=== PATIENT | male | born 1990 | race Caucasian/White ===

== ENCOUNTER 2016-11-20 09:36 | Emergency (ER) | payer OTHER ==
[~2016-11-20] VITALS: Ht 170.2 cm; Wt 61.0 kg
[~2016-11-20 09:36] MED LIST: IBUP-1427 PO; LORA-741 PO; TRAZ50TA35 PO; VENL37.593 PO
[2016-11-20 09:49] VITALS: TEMP 36.7; Ht 170.2 cm; Wt 61.0 kg
--- NOTE | 2016-11-20 10:02 | EMERGENCY ROOM VISIT NOTE ---
History Report prepared by Shahab: [place] Under the Supervision of: Dr. Hanna Tinsley M.D. First contact with patient: 09:52 Chief Complaint: ILLNESS Stated Complaint: NECK, BACK, SHOULDER, HIP, JAW PAIN History of Present Illness The patient is a 26 year old male who presents to the Emergency Room with complaints of persistent generalized pains that began two months ago. He currently rates his discomfort as a 6/10 in severity. The patient states that two months ago he noticed a rash to his left leg and believes that he may have been bitten by a tick. He states that he noticed itchiness to the area and burning. The patient states that he then began noticing joint pain and muscle aches. He states that it has progressively worsened and migrated throughout his body. The patient reports neck pain, bilateral shoulder pain, back pain, and bilateral hip pain. He states that he has experienced generalized malaise. The patient denies any fever or sore throat. Source of History: patient Onset: two months Position: other (global) Symptom Intensity: 6/10 Quality: other (generalized pain) Timing: other (persistent) Associated Symptoms: + neck pain, + back pain, No fevers, No sorethroat Note: Associated symptoms: joint pain, muscle aches, malaise, bilateral shoulder pain , bilateral hip pain Review of Systems See HPI for pertinent positives & negatives. A total of 10 systems reviewed and were otherwise negative. Past Medical & Surgical Medical Problems: (1) Anxiety State Nos (2) Asthma, Unspecified Surgical Problems: (1) History of left hand surgery Family History Cancer Diabetes mellitus Hypertension Social History Smoking Status: Never Smoker Alcohol Use: none Drug Use: none Marital Status: in relationship Housing Status: lives with significant other Occupation Status: employed Current/Historical Medications Scheduled Doxycycline Monohydrate (Monodox), 100 MG PO BID Trazodone HCl (Trazodone HCl), 100 MG PO HS Venlafaxine Hcl (Venlafaxine Hcl Er), 75 MG PO DAILY Scheduled PRN Lorazepam (Ativan), 0.5 MG PO Q6H PRN for Anxiety/Agitation Allergies Coded Allergies: No Known Allergies (Unverified , 11/20/16) Physical Exam Vital Signs Date Time Temp Pulse Resp B/P (MAP) Pulse Ox O2 Delivery O2 Flow Rate FiO2 11/20/16 13:09 62 16 116/74 97 11/20/16 12:08 66 16 119/77 98 Room Air 11/20/16 09:49 36.7 74 16 138/79 97 Room Air Physical Exam Vital signs reviewed. General: Well-appearing male, in no significant distress. HEENT: No scleral icterus, PERRLA, neck supple. Atraumatic. Cardiovascular: Regular rate and rhythm, no extra sounds. Pulmonary: Clear to auscultation bilaterally, normal work of breathing. Abdomen: Soft, nontender, nondistended, positive bowel sounds. Musculoskeletal: Atraumatic, no peripheral edema. Neurologic: Patient awake alert and oriented x 3, full strength in all 4 extremities. Cranial nerves 2 through 12 grossly intact. Skin: Warm, dry, no rash Medical Decision & Procedures Laboratory Results 11/20/16 10:00 Red Blood Count 4.23, Mean Corpuscular Volume 90.5, Mean Corpuscular Hemoglobin 30.0, Mean Corpuscular Hemoglobin Concent 33.2, Mean Platelet Volume 9.4, Neutrophils (%) (Auto) 74.5, Lymphocytes (%) (Auto) 16.2, Monocytes (%) (Auto) 7.2, Eosinophils (%) (Auto) 1.5, Basophils (%) (Auto) 0.5, Neutrophils # (Auto) 6.14, Lymphocytes # (Auto) 1.33, Monocytes # (Auto) 0.59, Eosinophils # (Auto) 0.12, Basophils # (Auto) 0.04 11/20/16 10:00 Test 11/20/16 10:00 White Blood Count 8.23 K/uL (4.8-10.8) Red Blood Count 4.23 M/uL (4.7-6.1) Hemoglobin 12.7 g/dL (14.0-18.0) Hematocrit 38.3 % (42-52) Mean Corpuscular Volume 90.5 fL (80-100) Mean Corpuscular Hemoglobin 30.0 pg (25-34) Mean Corpuscular Hemoglobin Concent 33.2 g/dl (32-36) Platelet Count 234 K/uL (130-400) Mean Platelet Volume 9.4 fL (7.4-10.4) Neutrophils (%) (Auto) 74.5 % Lymphocytes (%) (Auto) 16.2 % Monocytes (%) (Auto) 7.2 % Eosinophils (%) (Auto) 1.5 % Basophils (%) (Auto) 0.5 % Neutrophils # (Auto) 6.14 K/uL (1.4-6.5) Lymphocytes # (Auto) 1.33 K/uL (1.2-3.4) Monocytes # (Auto) 0.59 K/uL (0.11-0.59) Eosinophils # (Auto) 0.12 K/uL (0-0.5) Basophils # (Auto) 0.04 K/uL (0-0.2) RDW Standard Deviation 43.4 fL (36.4-46.3) RDW Coefficient of Variation 13.1 % (11.5-14.5) Immature Granulocyte % (Auto) 0.1 % Immature Granulocyte # (Auto) 0.01 K/uL (0.00-0.02) Anion Gap 5.0 mmol/L (3-11) Est Creatinine Clear Calc Drug Dose 111.3 ml/min Estimated GFR () 137.7 Estimated GFR (Non- 118.8 BUN/Creatinine Ratio 10.3 (10-20) Calcium Level 8.7 mg/dl (8.5-10.1) Total Bilirubin 0.5 mg/dl (0.2-1) Direct Bilirubin mg/dl (0-0.2) Aspartate Amino Transf (AST/SGOT) 18 U/L (15-37) Alanine Aminotransferase (ALT/SGPT) 24 U/L (12-78) Alkaline Phosphatase 121 U/L (45-117) Total Protein 7.3 gm/dl (6.4-8.2) Albumin 3.3 gm/dl (3.4-5.0) Lyme Disease IgG Antibody POS (NEG) Monoscreen POS (NEG) Laboratory results per my review. Medications Administered Medications (Trade) Dose Ordered Sig/Yazmin Route Start Time Stop Time Status Last Admin Dose Admin Doxycycline Hyclate (Vibramycin Cap) 100 mg ONE ONCE PO 11/20/16 12:45 11/20/16 12:46 DC 11/20/16 13:08 100 MG ECG Indication: other (malaise, joint aches) Rate (beats per minute): 63 Rhythm: normal sinus Findings: no acute ischemic change, no ectopy ED Course 09: Past medical records reviewed. The patient was evaluated in room B11B. A complete history and physical examination was performed. 1245: Ordered Vibramycin Cap 100 mg PO. 1252: The patient and he is doing well. The exam findings were discussed with him and the treatment plan was discussed. He verbalized complete understanding and agreement. He is ready to go home. Medical Decision The patient is a 26 year old male who presents to the ED with complaints of generalized pain. Differentials include mono, lyme disease, tick borne illness , cellulitis, metabolic abnormality, viral illness This patient was evaluated and appeared to be in no significant distress. IV access was obtained and laboratory work was drawn. Physical exam is fairly unrevealing. Patient is concerned about the possibility of a tick bite several months ago. Lyme serology is positive IgM and IgG. Monospot is also positive. Patient will be placed on doxycycline 100 mg twice daily for 3 weeks. Patient was encouraged to establish care with a primary care physician and return to the emergency department for worsening of symptoms or any medical concerns. Medication Reconcilliation Current Medication List: was personally reviewed by me Blood Pressure Screening Patient's blood pressure: Normal blood pressure Blood pressure disposition: Did not require urgent referral Impression Primary Impression: Positive Lyme disease serology Scribe Attestation The scribe's documentation has been prepared under my direction and personally reviewed by me in its entirety. I confirm that the note above accurately reflects all work, treatment, procedures, and medical decision making performed by me. Departure Information Dispostion Home / Self-Care Prescriptions Doxycycline Monohydrate (Monodox) 100 Mg Cap 100 MG PO BID for 21 Days, #42 CAP Prov: Hanna Tinsley M.D. 11/20/16 Referrals No Doctor, Assigned (PCP) Forms HOME CARE DOCUMENTATION FORM, IMPORTANT VISIT INFORMATION, WORK / SCHOOL INSTRUCTIONS Patient Instructions My [facility] Additional Instructions Diagnosis: Lyme titer positive. Doxycycline 100 mg twice daily for 3 weeks. Drink plenty of fluids. Tylenol 650 mg every 6 hours as needed for pain. Return to the ED for worsening of symptoms or any medical concerns.
[2016-11-20] MEDS ORDERED: DSY100 PO (10:20)
[2016-11-20] MEDS ORDERED: VENL-273 PO (10:20)
[2016-11-20 10:22] LABS: BASO % 0.5 %; BASO ABS # 0.04 K/uL (0-0.2); COMPLETE YES; EOS % 1.5 %; HEMATOCRIT 38.3 % (42-52); IG% 0.1 %; LYMPH % 16.2 %; LYMPH ABS # 1.33 K/uL (1.2-3.4); MEAN CELL VOLUME 90.5 fL (80-100); MEAN CORPUSCULAR HGB CONC 33.2 g/dl (32-36); MEAN PLATELET VOLUME 9.4 fL (7.4-10.4); MONO % 7.2 %; NEUT % 74.5 %; PLATELET COUNT 234 K/uL (130-400); RED BLOOD COUNT 4.23 M/uL (4.7-6.1); WHITE BLOOD COUNT 8.23 K/uL (4.8-10.8)
[2016-11-20 10:41] LABS: ALT/SGPT 24 U/L (12-78); AST/SGOT 18 U/L (15-37); BLOOD UREA NITROGEN 9 mg/dl (7-18); BUN/CREATININE RATIO 10.3 (10-20); CALCIUM 8.7 mg/dl (8.5-10.1); CARBON DIOXIDE 31 mmol/L (21-32); CHLORIDE 106 mmol/L (98-107); CREATININE 0.86 mg/dl (0.60-1.40); GLUCOSE 124 mg/dl (70-99); POTASSIUM 4.2 mmol/L (3.5-5.1); SODIUM 142 mmol/L (136-145)
[2016-11-20 10:44] LABS: ALKALINE PHOSPHATASE 121 U/L (45-117)
[2016-11-20 11:48] LABS: LYME DISEASE AB IGG POS (NEG); LYME DISEASE AB IGM POS (NEG)
[2016-11-20] MEDS ORDERED: DOXYCYCLINE HYCLATE 100 MG CAP PO ONE (12:45)
[2016-11-20] MEDS ORDERED: DOXY100C76 PO (12:46)
[2016-11-20 13:09] VITALS: BP 116/74; PULSE 62; O2SAT 97
[2016-11-25 08:59] LABS: 18KDIGG BAND REACTIVE (NONREACTIVE); 23KDIGG BAND REACTIVE (NONREACTIVE); 23KDIGM BAND REACTIVE (NONREACTIVE); 28KDIGG BAND REACTIVE (NONREACTIVE); 30KDIGG BAND REACTIVE (NONREACTIVE); 39KDIGG BAND REACTIVE (NONREACTIVE); 39KDIGM BAND REACTIVE (NONREACTIVE); 41KDIGG BAND REACTIVE (NONREACTIVE); 41KDIGM BAND REACTIVE (NONREACTIVE); 45KDIGG BAND REACTIVE (NONREACTIVE); 58KDIGG BAND REACTIVE (NONREACTIVE); 66KDIGG BAND REACTIVE (NONREACTIVE); 93KDIGG BAND REACTIVE (NONREACTIVE)
== END 2016-11-20 13:09 | disposition home or self-care (01) ==
LOC: C.EDB 09:37
DX: A69.20 Lyme disease, unspecified (principal); F41.9 Anxiety disorder, unspecified; J45.909 Unspecified asthma, uncomplicated; Z83.3 Family history of diabetes mellitus; Z82.49 Family history of ischemic heart disease and other diseases of the circulatory system

== ENCOUNTER 2023-02-28 06:59 | Inpatient (IN) ==
--- OUTSIDE RECORDS SUMMARY | 2023-02-28 07:03 | External Medical Summary | Summary of Care ---
Author Name Unknown Organization [facility] Address [address] [place] [address] Phone [phone] Care Team Providers Care Butcher Supervisor Name Role Phone Oksana Liu MD Primary Care Provider [phone] Reason for Visit * Reason Comments Follow Up Depression * - Authorized Specialty Diagnoses / Procedures Referred By Anne t Referred To Contact Referral ID Status Reason Start Date Expiration Date V isits Requested Visits Authorized [id number] Authorized 07/09/2022 07/08/[phone] Encounter Details Date Type Department Care Team Description 12/20/2022 [facility] [address] [place] [address] Sujata Lewis, [facility] [address], [place] [id number] FRANCOIS (generalized anxiety disorder)*; Panic disorder; Major depressive disorder, recurrent episode, in partial remission (HCC) Allergies Active Allergy Reactions Severity Noted Date Comments Amitriptyline Rash Medium 11/12/2018 documented as of this encounter (statuses as of 12/20/2022) Medications Medication Sig Dispensed Refills Start Date End Date Status ARIPiprazole 5 MG Oral Tablet (Abilify) Take 1.5 Tablets by mouth in the morning. 45 Tablet 2 10/03/2022 Active Sertraline HCl 100 MG Oral Tablet (Zoloft) Take 2 Tablets by mouth in the morning. In the morning.. 180 Tablet 1 10/25/2022 Active clonazePAM 0.5 MG Oral Tablet (KlonoPIN) Take 1 Tablet by mouth in the morning and 1 Tablet before bedtime. 60 Tablet 1 10/25/2022 Active Albuterol Sulfate HFA 108 (90 Base) MCG/ACT Inhalation Aerosol SolutionIndications:I ntermittent asthma with reliever use up to twice per week without complication INHALE 2 PUFFS BY MOUTH EVERY 4 HOURS NEEDED FOR WHEEZE 18 g 3 11/24/2022 Active documented as of this encounter (statuses as of 12/20/2022) Active Problems Problem Noted Date Food insecurity 04/19/2021 Overview: Per [facility] Protocol MDD (major depressive disorder), recurre nt episode, mild 05/13/2020 FRANCOIS (generalized anxiety disorder) 09/14 ADHD (attention deficit hyperactivity di sorder), combined type 09/14/2018 Sleep disturbance 04/16/2012 Allergic rhinitis Mild intermittent asthma without complic ation documented as of this encounter (statuses as of 12/20/2022) Resolved Problems Problem Noted Date Resolved Date Bipolar 1 disorder 07/24/2017 09/14/2018 Primary insomnia 01/01/2016 09/14/2018 Dizziness 06/23/2015 03/30/2018 Dizziness 07/09/2012 05/12/2015 Ganglion 07/09/2012 03/30/2018 Panic disorder 04/16/2012 09/14/2018 Anxiety 02/23/2021 documented as of this encounter (statuses as of 12/20/2022) Immunizations Name Administration Dates Next Due DTaP Dipth/Tet/Acell Pertussis (Infanrix), Peds 09/19/1994,01/19/1993,12/21/1992,1992 Haemophilius B (HIB), unspecified 11/16/1992 Hepatitis B, 0-19 yrs 06/18/2002,03/12/2002,12/09 MMR - Measles/Mumps/Rubella Vaccine 09/19/1994,0 11/16/1992 OPV - Polio Virus Vaccine (Oral) 09/19/1994,01/08,11/16/1992 TD, Preservative Free 12/18/2001 Varicella Vaccine (Chicken Pox) 12/18/2001 documented as of this encounter Social History Tobacco Use Types Packs/Day Years Used Date Smoking Tobacco: Never Smokeless Tobacco: Never Alcohol Use Standard Drinks/Week Comments Yes 0 (1 standard drink = 0.6 oz pur e alcohol) rare Food Insecurity Answer Date Recorded Within the past 12 months, y ou worried that your food would run out before you got money to buy more. Sometimes true 2022 Within the past 12 months, t he food you bought just didn't last and you didn't have money to get more. Not asked Sex Assigned at Date Recorded Male 12/15/2022 7:47 AM E DT Job Start Date Occupation Industry Not on file Not on file Not on file documented as of this encounter Progress Notes * Sujata Lewis, BUSINESS PROCESS SPECIALIST - 12/20/2022 4:36 PM EDT Patient location: HOME. I was not in a hospital or clinic location. After connecting through [employer], patient was verified with two unique identifiers. Patient (or authorized legal security systems sales representative) was then informed that this was a Telemedicine visit and being conducted confidentially over secure lines. Methods to assure confidentiality were taken. Patient acknowledged consent and understanding of privacy and security of the Telemedicine visit. The patient agreed to participate. My office door was closed. No one else was in the room with me. I informed the patient that I have reviewed their record in [employer] and presented the opportunity for them to ask any questions regarding the visit today. The patient agreed to participate. Provider reviewed elements of Outpatient Services Description including limits of confidentiality, how to contact the department, risks and benefits of treatment and consent for treatment. Start Time: 4:36pm Stop Time: 5:23pm Total direct time: 47 minutes BEHAVIORAL MEDICINE RETURN VISIT PROGRESS NOTE Psychology, [place] [id number] 12/20/2022 4:36 PM TYPE OF VISIT: Individual DIAGNOSIS: FRANCOIS (generalized anxiety disorder) (Primary) Panic disorder Major depressive disorder, recurrent episode, in partial remission (HCC) REASON FOR SESSION: Individual therapy Session #: 7 with this provider SESSION FOCUS: treatment planning, Developing coping skills NOTES: Therapist met with patient to complete an individual session. Pt shared how he was following up with his psychiatrist to complete disability paperwork. Pt explained how he knows his psychiatrist can't answer some of the questions. "Pt identified feeling like he is against the wall". Pt shared he has court since he can't pay back a loan. Pt explored medication adjustment. PT discussed his anxiety stating "constantly bothering me but it is not as bad as it use to be". Pt shared his experience with panic while being in the car. Pt shared he still has moments "of not knowing what to do".Pt explored his lack of concentration, lack of will power to complete tasks and something as simple as takingthe garbage out or packing the trunk of the car to go camping. Pt was encouraged to discuss a possible medication adjustment with his perscriber at next appt. Pt also explored his support's explaining his mother agreed to put a place in his name so they would only have to pay her and not the bank. Pt shared his situation is significantly contributing to his mental health symptoms. PHQ and FRANCOIS scored reviewed. Pt and BUSINESS PROCESS SPECIALIST explored problem solving techniques. Patient and therapist identified the following strengths that will aid in treatment: Honest, open Patient and therapist identified the following needs: Lack of will power, interest and feeling depressive symptoms. 02/01/[address] MENTAL STATUS AND BEHAVIORAL OBSERVATIONS: Appearance: casually dressed Behavior: cooperative Speech: normal pitch, rate and volume Affect: Congruent with content of conversation Thought Process: within normal limits and goal directed Thought Content: within normal limits Intellectual Function: within normal limits Sensorium: alert and oriented to person, place, time and situation Cognition: grossly intact Insight/Judgment: fair PROGRESS TOWARDS GOALS: Goal: Improved self-management of Improved self-management of symptoms, coping strategies, and insight. Objective Measures: Patient Health Questionnaire 9 & Generalized Anxiety Disorder 7 Over the last 2 weeks or more, how often have you been bothered by any of the following problems? 0-1-2-3 1. Little interest or pleasure in doing things 3 2. Feeling down, depressed, or hopeless 3 3. Trouble falling asleep, staying asleep, or sleeping too much 3 4. Feeling tired or having little energy 3 5. Poor appetite or overeating 1 6. Feeling bad about yourself -- or that you are a failure or have let yourself or others down 3 7. Trouble concentrating on things, such as reading a book or watching television 3 8. Feeling you were moving or speaking so slowly or were very fidgety and moving around in such a way that you or others could have noticed 3 9. Thoughts that you would be better off or of hurting yourself in some way 0 PHQ-9 TOTAL SCORE 22 1. Feeling nervous, anxious, or on edge 3 2. Been unable to control or stop worrying 3 3. Worried too much about different things 3 4. Trouble relaxing 3 5. Been so restless that it is hard to sit still 3 6. Becoming easily annoyed or irritable 3 7. Feeling afraid as if something awful might happen 3 FRANCOIS-7 TOTAL SCORE 21 Patient Health Questionnaire (PHQ-9): 22 (0-4 Min; Mild -5-9; Moderate 10-14; Mod Severe 15-19; Severe 20+) PHQ-9, item 9 = 0 Generalized Anxiety Disorder (FRANCOIS-7): 21 (0-4 Min; Mild -5-9; Moderate 10-14; Severe 15+) Suicide/Homicidal Assessment Validated Screening and Assessment Measures PHQ-9, item 9: NEGATIVE C-SSRS administered: Yes, see rooming tool Miller Suicide Severity Rating Scale Results 12/20/2022 16:36 [place] SUICIDE SEVERITY RATING SCALE (C-SSRS) Have you wished you were or wished you could go to sleep and not wake up? (In the Past Month or Since Last Visit) No Have you had any actual thoughts of killing yourself? (In the Past Month or Since Last Visit) No Have you been thinking about how you might do this? (In the Past Month or Since Last Visit) No Have you had thoughts and had some intention of acting on them? (In the Past Month or Since Last Visit) No Have you started to work out or worked out the details of how to kill yourself? Do you intend to carry out this plan? (In the Past Month or Since Last Visit) No Have you ever done anything, started to do anything, or prepared to do anything to end your life? (Lifetime) No Was this within the past 3 months? No Level of Risk No Risk Identified - No change in risk from last session (see note dated 12/06/22 for further details) Safety Plan: Crisis Planning: What I can do if I ever experience a crisis (much worse symptoms, severe distress or thoughts of self-harm): Art/Music, Talking to loved one or friend or trusted person, Express my feelings and [place], play drums People I can call in the event of a crisis: Spouse/partner/significant other: My - Marcus Additional resources I can utilize if the previous steps are ineffective (e.g: ED, hotlines): Suicide and Crisis Lifeline - 988 INTERVENTION: Reviewing Crisis Planning, Processing, developing coping skills, encouraged positive thinking. TREATMENT PLAN: Outpatient Adult Therapy Treatment Plan Treatment plan was developed on 09/15/22, treatment will continue to focus on goals below; Treatment update will occur when clinically indicated or by 03/13/2023. Patient's goals captured in patient's words: "Be able to breathe and add relief to this constant feeling." Expected family or significant other involvement: Not applicable Type of Service:Individual Patients Strengths and Facilitating Factors to care: Seeking help, Goal Oriented, Has hobbies, Knowledge of medications and Other: Family Treatment Barriers: WIFI due to moving [facility] the [facility] Crisis Planning: What I can do if I ever experience a crisis (much worse symptoms, severe distress or thoughts of self-harm): Art/Music, Talking to loved one or friend or trusted person, Express my feelings and [place], play drums People I can call in the event of a crisis: Spouse/partner/significant other: My - Marcus Additional resources I can utilize if the previous steps are ineffective (e.g: ED, hotlines): Suicide and Crisis Lifeline - 8 Signature Obtained on Treatment Plan Patient/ Family Received Copy of Treatment Plan Duration of Treatment Frequency of Treatment Treatment plan developed with patient and/or family during telemedicine/telephonic visit. No treatment plan signature page was signed. Will obtain signatures once sessions resume in clinic. Patient has access to [place] [facility] sessions every other week Patient Identified Needs/Goals Interventions Objective/ Discharge Criteria Problem/Need 1: Anxiety and Depression Cognitive Behavioral Therapy (CBT), which includes psychoeducation, cognitive restructuring, relaxation/diaphragmatic breathing, problem-solving, and behavioralactivation FRANCOIS<5 Please choose a method to track patient's improvement based on clinical assessment: FRANCOIS-7 Data Discharge Discussed with patient: Patient continues to need treatment Collaboration of Care: Yes, provider within [facility], information is shared automatically in medical record Is this the patients' initial treatment plan? Yes FOLLOW-UP PLAN: Return: 3 weeks Appointment: 01/09/23 Action Plan: 1. Continue Cognitive Behavioral Therapy 2. Continue medication management with Trey Anne 3. Continue applying for disability Treatment plan reviewed with the patient. Patient voices understanding and concurs with plan. PATIENT EDUCATION: Verbal & written Sujata Lewis LCSW Division of Psychiatry & Behavioral Medicine [facility] [phone] National Suicide Prevention Lifeline : 988 Crisis Textline : Text "HOME" to 724361 to connect with a crisis counselor Crisis Numbers by [facility]: [place] [facility] Services - Emergency Services [facility] (3-877-0-YOU CAN) resolve Crisis Network [facility] . [facility] - Crisis Intervention [facility] Crisis Help-Line [place] & [place] [facility] - Crisis Intervention Services [facility] Service Access [employer] - Crisis Intervention Roy Choose option 1 [facility] of Lead Level Designer Gilmer [place] & [place] Crisis Intervention [place] [facility] - Mental Health Crisis Charlie [facility] - Crisis Intervention [place] [facility] - Crisis Intervention Otilio Gr Potter - Crisis Line [place] - Mental Health Crisis Hotline [place] [facility] - Crisis Services [place] [facility] Crisis Center [facility] Service Access [employer] - Crisis Intervention [place] - Mental Health Crisis Intervention Services [facility] MH/ID Program Duglas Barrett [place], [place] - Crisis System [facility] - Crisis Hotline [place] & [place] (8-597-700-HELP) [facility] - Crisis Intervention [place] [facility] - Crisis Intervention [facility] - Crisis Services [place] [facility] Behavioral Health - Crisis Center [place] [phone] [facility] - Crisis Hotline [place] (8:30 am-5:00 pm) OR (after 5:00 pm, weekends & holidays) Fouzia [facility] Crisis Intervention Program [facility] - Mental Health Crisis Line Rom[place], [place] and [place] [facility] Crisis Mot[place] & Marilyn [facility] - Crisis Intervention [facility] - Mental Health Crisis Service [place] [facility] - Crisis Intervention [facility] - Crisis Intervention [place] [facility] - Help Line [facility] MH/ID Program La[facility] - Crisis Intervention [place] [facility] Crisis Intervention [place] [facility] Emergency Services, [facility] - Crisis Intervention [place] [facility] Behavioral Health - Emergency Services [facility] - Crisis Line [place] - DB[facility] - Suicide and Crisis Intervention Hotline [facility] - Crisis/ Emergency Services [place] [facility] - Emergency Contact Line [place] [facility] - Crisis Line Ivel ext. 1 [facility] Human Services [facility] Action - Crisis Intervention Hotline [place] [facility] Crisis Intervention Services documented in this encounter Plan of Treatment Upcoming Encounters Date Type Specialty Care Team Description 01/02/2023 Telemedicine Psychiatry Trey Anne MD [address], [place] [id number] 01/09/2023 Telemedicine Psychology Sujata Lewis LCSW [address] [place] [address] 12/18/2023 Office Visit Family Medicine Oksana Liu MD [address] [place] [address] Health Maintenance Due Date Last Done Comments COVID-19 Vaccine (#1) 1989 Pneumococcal Vaccine: Pediatrics (0 to 5 Years) and At-Risk Patients (6 to 64 Years) (1 - PCV) 1995 DTaP,Tdap,and Td Vaccines (5 - Tdap) 12/19/2001 12/18/2001, 09/19/1994, 01/19/1993, Additional history exists HIV Screening 2004 Hepatitis C Screening 2007 Depression, Most Recent Score >= 10 (will fire each visit until score < 10) 03/25/2021 03/24/2021 *SPIROMETRY ONCE FOR ASTHMA-ADULT 03/03/2022 Influenza Vaccine (FLU shot) (#1) 2022 Hepatitis B Completed 06/18/2002, 12/0 06/2001, 12/18/2001 GARDASIL-HPV IMMUNIZATION SERIES Aged Out No longer eligible based on patient's age to complete this topic MENINGOCOCCAL (MENACTRA/MENVEO) Aged Out No longer eligible based on patient's age to complete this topic documented as of this encounter Medical Devices Not on filedocumented as of this encounter Visit Diagnoses Diagnosis FRANCOIS (generalized anxiety disorder)- Primary Generalized anxiety disorder Panic disorder Panic disorder without agoraphobia Major depressive disorder, recurrent episode, in partial remission (HCC) Major depressive disorder, recurrent episode, in partial or unspecified remission documented in this encounter Care Teams Butcher Supervisor Relationship Specialty Start Date End Date Oksana Liu MD [address] [place] [id number] PCP - General Family Medicine 12/15/22 documented as of this encounter
--- OUTSIDE RECORDS SUMMARY | 2023-02-28 07:03 | External Medical Summary | Summary of Care ---
Author Name Unknown Organization [facility] Address [address] [place] [address] Phone [phone] Care Team Providers Care Gatekeeper Name Role Phone Oksana Liu MD Primary Care Provider Reason for Visit * Reason Comments Follow Up Depression Anxiety * - Authorized Specialty Diagnoses / Procedures Referred By Anne t Referred To Contact Referral ID Status Reason Start Date Expiration Date V isits Requested Visits Authorized [id number] Authorized 07/09/2022 07/08/2023 [id number] Encounter Details Date Type Department Care Team Description 01/09/2023 [facility] [address] [id number] Sujata Lewis LCSW [address] [place], [place] [id number] Major depressive disorder, recurrent episode, in partial remission (HCC)*; Panic disorder; FRANCOIS (generalized anxiety disorder) Allergies Active Allergy Reactions Severity Noted Date Comments Amitriptyline Rash Medium 11/12/2018 documented as of this encounter (statuses as of 01/09/2023) Medications Medication Sig Dispensed Refills Start Date End Date Status Sertraline HCl 100 MG Oral Tablet (Zoloft) Take 2 Tablets by mouth in the morning. In the morning.. 180 Tablet 1 10/25/2022 Active Albuterol Sulfate HFA 108 (90 Base) MCG/ACT Inhalation Aerosol SolutionIndications: Intermittent asthma with reliever use up to twice per week without complication INHALE 2 PUFFS BY MOUTH EVERY 4 HOURS NEEDED FOR WHEEZE 18 g 3 11/24/2022 Active clonazePAM 0.5 MG Oral Tablet (KlonoPIN) Take 1 Tablet by mouth in the morning and 1 Tablet before bedtime. 60 Tablet 1 12/27/2022 Active guanFACINE HCl 1 MG Oral Tablet (Tenex) Take 0.5 Tablets by mouth at bedtime for 7 days, THEN 1 Tablet at bedtime for 23 days. 27 Tablet 0 01/02/2023 02/01/2023 Active ARIPiprazole 5 MG Oral Tablet (Abilify) Take 1.5 Tablets by mouth in the morning. 45 Tablet 2 01/02/2023 Active documented as of this encounter (statuses as of 01/09/2023) Active Problems Problem Noted Date Food insecurity 04/19/2021 Overview: Per [facility] Protocol MDD (major depressive disorder), recurre nt episode, mild 05/13/2020 FRANCOIS (generalized anxiety disorder) 09/14 ADHD (attention deficit hyperactivity di sorder), combined type 09/14/2018 Sleep disturbance 04/16/2012 Allergic rhinitis Mild intermittent asthma without complic ation documented as of this encounter (statuses as of 01/09/2023) Resolved Problems Problem Noted Date Resolved Date Bipolar 1 disorder 07/24/2017 09/14/2018 Primary insomnia 01/01/2016 09/14/2018 Dizziness 06/23/2015 03/30/2018 Dizziness 07/09/2012 05/12/2015 Ganglion 07/09/2012 03/30/2018 Panic disorder 04/16/2012 09/14/2018 Anxiety 02/23/2021 documented as of this encounter (statuses as of 01/09/2023) Immunizations Name Administration Dates Next Due DTaP [...] of this encounter Progress Notes * Sujata Lewis LCSW - 01/09/2023 4:37 PM EDT Patient location: HOME. I was not in a hospital or clinic location. After connecting through televideo, patient was verified with two unique identifiers. Patient (or authorized legal visitor services representative) was then informed that this was [...] that I have reviewed their record in [facility] and presented the opportunity for them to ask any questions regarding the visit today. The patient agreed to participate. Provider reviewed elements of Outpatient Services Description including limits of confidentiality, how to contact the department, risks and benefits of treatment and consent for treatment. Start Time: 4:38pm Stop Time: 5:09pm Total direct time: 30 minutes BEHAVIORAL MEDICINE RETURN VISIT PROGRESS NOTE Psychology, [address] [address] 01/09/2023 4:37 PM TYPE OF VISIT: Individual DIAGNOSIS: Major depressive disorder, recurrent episode, in partial remission (HCC) (Primary) Panic disorder FRANCOIS (generalized anxiety disorder) REASON FOR SESSION: Individual therapy Session #: 8 with this provider SESSION FOCUS: treatment planning, Developing coping skills, symptom management, medication management, NOTES: Therapist met with patient to complete an individual session. Pt discussed new medication Tenex (Guanfacine) which pt reports was prescribed for the "pulsating in my heart that I feel close to my ears". Pt reported this experience has been for some time. Pt explored how he did not feel any better and in fact might even feel worse with his anxiety. Pt explained he "doesn't know if he is asleep or n ot". Pt reported he reached out to the person who prescribes.Pt continued to explore how he is getting legal assistance fighting for disability. Pt shared he is still not comfortable driving so he needs to figure out how his son is getting to school next month. Pt expressed his living situation is not ideal but has to be right now. PT shared he is hoping to move out soon with his mom's financial help but nothing has come of it as of it. Patient and therapist identified the following strengths that will aid in treatment: Honest, open Patient and therapist identified the following needs: Lack of will power, interest and feeling depressive symptoms. 02/01/[address] Not able to pay back loan. MENTAL STATUS AND BEHAVIORAL OBSERVATIONS: Appearance: casually [...] NEGATIVE C-SSRS administered: Yes, see rooming tool [place] Suicide Severity Rating Scale Results 01/09/2023 16:38 [place] SUICIDE SEVERITY RATING SCALE (C-SSRS) Have [...] risk from last session (see note dated 12/20/22 for further details) Safety Plan: Crisis Planning: What I can do if I ever experience a crisis (much worse symptoms, severe distress or thoughts of self-harm): Art/Music, Talking to loved one or friend or trusted person, Express my feelings and [place], play drums People I can call in the event of a crisis: Spouse/partner/significant other: My - Marcus Additional resources I can utilize if the previous steps are ineffective (e.g: ED, hotlines): Suicide and Crisis Lifeline - INTERVENTION: Reviewing Crisis Planning, Processing, developing coping [...] Barriers: WIFI due to [facility] Crisis Planning: What I can do if I ever experience a crisis (much worse symptoms, severe distress or thoughts of self-harm): Art/Music, Talking to loved one or friend or trusted person, Express my feelings and [place], play drums People I can call in the event of a crisis: Spouse/partner/significant other: My - Marcus Additional resources I can utilize if the previous steps are ineffective (e.g: ED, hotlines): Suicide and Crisis Lifeline - 98 Signature Obtained on Treatment Plan Patient/ Family Received Copy of Treatment Plan Duration of Treatment Frequency of Treatment Treatment plan developed with patient and/or family during telemedicine/telephonic visit. No treatment plan signature page was signed. Will obtain signatures once sessions resume in clinic. Patient has access to [facility] 8-11 sessions every other week Patient Identified Needs/Goals Interventions Objective/ Discharge Criteria Problem/Need 1: Anxiety and Depression Cognitive Behavioral Therapy (CBT), which includes psychoeducation, cognitive restructuring, relaxation/diaphragmatic breathing, problem-solving, and behavioralactivation FRANCOIS<5 Please choose a method to track patient's improvement based on clinical assessment: FRANCOIS-7 Data Discharge Discussed with patient: Patient continues to need treatment Collaboration of Care: Yes, provider within [facility], information is shared automatically in medical record Is this the patients' initial treatment plan? Yes FOLLOW-UP PLAN: Return: 2 weeks Appointment: 01/23/23 Action Plan: 1. Continue Cognitive Behavioral Therapy 2. Continue medication management with Trey Anne 3. Discuss Court and f/u with assessments. Treatment plan reviewed with the patient. Patient voices understanding and concurs with plan. PATIENT EDUCATION: Verbal & written Sujata Lewis LCSW Division of Psychiatry & Behavioral Medicine [facility] [phone] Main Office # for Behavioral Health: [phone] National Suicide Prevention Lifeline : 988 Crisis Textline : Text "HOME" to 590977 to connect with a crisis counselor Crisis Numbers by [facility]: [place] [facility] - Emergency Services [facility] (7434-2-YOU CAN) resolve Crisis Network Juliane & [place] . The Open Door - Crisis Intervention [place] [facility] Crisis Help-Line [facility] - Crisis Intervention [facility] Service Access [employer], [employer] - Crisis Intervention [place] Choose option 1 [facility] Damage Appraiser Gilmer Pryor & [place] Crisis Intervention [place] [facility] - Mental Health Crisis Gu[facility] - Crisis Intervention [place] [facility] - Crisis Intervention Otilio Gr Potter - Crisis Line [place] Alicea Pike - Mental Health Crisis Hotline [place] [facility] - Crisis Services [place] [facility] Crisis Center Milo Service Access [employer] - Crisis Intervention Sulaiman - Mental Health Crisis Intervention Services [place] [facility] MH/ID Program Duglas Barrett [place], [place] - Crisis System Nin[place] [facility] Human [facility] - Crisis Hotline [place] & Duane (2-149-080-HELP) [facility] - Crisis Intervention [place] [facility] - Crisis Intervention [facility] - Crisis Services [facility] - Crisis Center [place] [phone] [facility] - Crisis Hotline [place] (8:30 am-5:00 pm) OR (after 5:00 pm, weekends & holidays) Fouzia [facility] Crisis Intervention Program [place] [facility] Mental Health Crisis Line Neeru Gavin and Jay - [facility] Crisis Mónica & Marilyn [facility] - Crisis Intervention [place] [facility] - Mental Health Crisis Service [place] [facility] - Crisis Intervention [place] [facility] - Crisis Intervention [place] & [place] [facility] - Help Line Tre[place] [facility] MH/ID Program Laure [facility] - Crisis Intervention [place] [facility] - Crisis Intervention [place] [facility] - Crisis Intervention [place] [facility] Behavioral Health - Emergency Services [place] [facility] - Crisis Line [place] - DBHIDS - Suicide and Crisis Intervention Hotline [facility] - Crisis/ Emergency Services [place] [facility] - Emergency Contact Line [place] [facility] - Crisis Line Deepak ext. 1 [facility] Human Services [facility] Action - Crisis Intervention Hotline [place] [facility] Crisis Intervention Services documented in this encounter Plan of Treatment Upcoming Encounters Date Type Specialty Care Team Description 01/23/2023 Telemedicine Psychology Sujata Lewis LCSW [address] [place] [address] 02/06/2023 Telemedicine Psychology Sujata Lewis LCSW [address] [place], [place] [phone] 03/06/2023 Telemedicine Psychiatry Trey Anne MD [address] [place], [place] [phone] 12/18/2023 Office Visit Family Medicine Oksana Liu MD [address] [place] [address] Health Maintenance Due Date Last Done Comments [...] shot) (#1) 2022 Hepatitis B Completed 06/18/2002, 06/2001, 12/18/2001 GARDASIL-HPV IMMUNIZATION SERIES Aged Out No longer eligible based on patient's age to complete this topic MENINGOCOCCAL (MENACTRA/MENVEO) Aged Out No longer eligible based on patient's age to complete this topic documented as of this encounter Medical Devices Not on filedocumented as of this encounter Visit Diagnoses Diagnosis Major depressive disorder, recurrent episode, in partial remission (HCC)- Primary Major depressive disorder, recurrent episode, in partial or unspecified remission Panic disorder Panic disorder without agoraphobia FRANCOIS (generalized anxiety disorder) Generalized anxiety disorder documented in this encounter Care Teams Gatekeeper Relationship Specialty Start Date End Date Oksana Liu MD [address] [facility] [place] [address] PCP - General Family Medicine 12/15/22 documented as of this encounter
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
--- OUTSIDE RECORDS SUMMARY | 2023-02-28 07:03 | External Medical Summary | Summary of Care ---
Author Name Unknown Organization [facility] Address [address] [place] [address] Phone [phone] Care Team Providers Care Photographer Still Name Role Phone Oksana Liu MD Primary Care Provider [phone] Reason for Visit * Reason Onset Date Comments Medication Refill 12/26/2022 Encounter Details Date Type Department Care Team Description 12/26/2022 Refill Psychiatry, [facility] [address] [place] [address] Trey Anne MD [address] [place] [address] Allergies Active Allergy Reactions Severity Noted Date Comments Amitriptyline Rash Medium 11/12/2018 documented as of this encounter (statuses as of 12/27/2022) Medications Medication Sig Dispensed Refills Start Date [...] before bedtime. 60 Tablet 1 12/27/2022 Active clonazePAM 0.5 MG Oral Tablet (KlonoPIN) Take 1 Tablet by mouth in the morning and 1 Tablet before bedtime. 60 Tablet 1 10/25/2022 12/26/2022 Discontinued (Refill) documented as of this encounter (statuses as of 12/27/2022) Active Problems Problem Noted Date Food insecurity 04/19/2021 Overview: Per [facility] Protocol MDD (major depressive disorder), recurre nt episode, mild 05/13/2020 FRANCOIS (generalized anxiety disorder) 09/14 ADHD (attention deficit hyperactivity di sorder), combined type 09/14/2018 Sleep disturbance 04/16/2012 Allergic rhinitis Mild intermittent asthma without complic ation documented as of this encounter (statuses as of 12/27/2022) Resolved Problems Problem Noted Date Resolved Date Bipolar 1 disorder 07/24/2017 09/14/2018 Primary insomnia 01/01/2016 09/14/2018 Dizziness 06/23/2015 03/30/2018 Dizziness 07/09/2012 05/12/2015 Ganglion 07/09/2012 03/30/2018 Panic disorder 04/16/2012 09/14/2018 Anxiety 02/23/2021 documented as of this encounter (statuses as of 12/27/2022) Immunizations Name Administration Dates Next Due DTaP [...] on file documented as of this encounter Miscellaneous Notes * Telephone Encounter - Trey Anne MD - 12/27/2022 8:06 AM EDT Signed Prescriptions: Disp Refills clonazePAM 0.5 MG Oral Tablet (KlonoPIN) 60 Tab*1 Sig: Take 1 Tablet by mouth in the morning and 1 Tablet before bedtime.Authorizing Provider: TREY ANNE Y * Telephone Encounter - Anuradha Marina LPN - 12/26/2022 6:13 PM EDTPending Prescriptions: Disp Refills clonazePAM 0.5 MG Oral Tablet (KlonoPIN) 60 Tab*1 Sig: Take 1 Tablet by mouth in the morning and 1 Tablet before bedtime. * Telephone Encounter - Anuradha Marina LPN - 12/26/2022 6:12 PM EDT Refill request from patient ([facility]) for Klonopin 0.5mg. Medication last filled on 10/25/22 with 1 refills. Patient last seen on 11/07/22 with return appointment scheduled for 01/02/23. Patient had 0 cancelled appointments and 0 NO SHOW appointments. documented in this encounter Plan of Treatment Upcoming Encounters Date Type Specialty Care Team Description 01/02/2023 Telemedicine Psychiatry Trey Anne MD [address] [place] [address] 01/09/2023 Telemedicine Psychology Sujata Lewis LCSW [address] [place] [address] 12/18/2023 Office Visit Family Medicine Oksana Liu MD [address] [place] [address] Health Maintenance Due Date Last Done Comments [...] Not on filedocumented as of this encounter Care Teams Photographer Still Relationship Specialty Start Date End Date Oksana Liu MD [address] [place] [address], [place] [address] PCP - General Family Medicine 12/15/22 documented as of this encounter
--- OUTSIDE RECORDS SUMMARY | 2023-02-28 07:03 | External Medical Summary | Summary of Care ---
Author Name Unknown Organization [facility] Address [address] [place] [address] Phone [phone] Care Team Providers Care Assembler For Puller Over Machine Name Role Phone Oksana Liu MD Primary Care Provider [phone] Reason for Visit * Reason Onset Date Comments Medication Refill 01/30/2023 Encounter Details Date Type Department Care Team (Late st Contact Info) Description 01/30/2023 Refill Psychiatry, [facility] [address] [place] [address] Trey Anne MD [address] [place] [address] Allergies Active Allergy Reactions Criticality Noted Date Comments Amitriptyline Rash Medium 11/12/2018 documented as of this encounter (statuses as of 01/31/2023) Medications Medication Sig Dispensed Refills Start Date [...] before bedtime. 60 Tablet 1 12/27/2022 Active ARIPiprazole 5 MG Oral Tablet (Abilify) Take 1.5 Tablets by mouth in the morning. 45 Tablet 2 01/02/2023 Active guanFACINE HCl 1 MG Oral Tablet (Tenex) Take 1 Tablet by mouth at bedtime. 30 Tablet 1 01/31/2023 Active guanFACINE HCl 1 MG Oral Tablet (Tenex) Take 0.5 Tablets by mouth at bedtime for 7 days, THEN 1 Tablet at bedtime for 23 days. 27 Tablet 0 01/02/2023 01/30/2023 Discontinued (Refill) documented as of this encounter (statuses as of 01/31/2023) Active Problems Problem Noted Date Diagnosed Date Food insecurity 04/19/2021 Overview: Per [facility] Protocol MDD (major depressive disorder), recurrent episo de, mild 05/13/2020 FRANCOIS (generalized anxiety disorder) 09/14/2018 ADHD (attention deficit hype ractivity disorder), combined type 09/14/2018 Sleep disturbance 04/16/2012 Allergic rhinitis Mild intermittent asthma without complication documented as of this encounter (statuses as of 01/31/2023) Resolved Problems Problem Noted Date Diagnosed Date Resolved Date Bipolar 1 disorder 07/24/2017 9 Primary insomnia 01/01/2016 09/14/2018 Dizziness 06/23/2015 03/30/2018 Dizziness 07/09/2012 05/12/2015 Ganglion 07/09/2012 03/30/2018 Panic disorder 04/16/2012 09/14/2018 Anxiety 02/23/2021 documented as of this encounter (statuses as of 01/31/2023) Immunizations Name Administration Dates Next Due DTaP [...] = 0.6 oz pur e alcohol) rare PHQ-2 Answer Date Recorded PHQ Adult Total Score 27 03/24/2021 Hunger Vital Sign Answer Date Recorded Within the past 12 months, y ou worried that your food would run out before you got the money to buy more. Sometimes true Ran Out of Food in the Last Year Not on file 12/15/2022 Sex and Gender Information Value Date Recorded Sex Assigned at Male 12/15/2022 7:47 AM EDT Gender Identity Male 12/15/2022 7:47 AM EDT Sexual Orientation Straight 12/15/2022 7: 47 AM EDT Job Start Date Occupation Industry Not on file Not on file Not on file documented as of this encounter Miscellaneous Notes * Telephone Encounter - Trey Anne MD - 01/31/2023 4:30 PM EDT Signed Prescriptions: Disp Refills guanFACINE HCl 1 MG Oral Tablet (Tenex) 30 Tab*1 Sig: Take 1 Tablet by mouth at bedtime. Authorizing Provider: TREY ANNE * Telephone Encounter - Anuradha Marina LPN - 01/31/2023 1:44 PM EDTPending Prescriptions: Disp Refills guanFACINE HCl 1 MG Oral Tablet (Tenex) 27 Tab*0 Sig: Take 0.5 Tablets by mouth at bedtime for 7 days, THEN 1 Tablet at bedtime for 23 days. * Telephone Encounter - Anuradha Marina LPN - 01/31/2023 1:43 PM EDT Refill request from patient ([facility]) for Tenex 1mg. Medication last filled on 01/02/23 with 0 refills. Patient last seen on 01/02/23 with return appointment scheduled for 03/06/23. Patient had 0 cancelledappointments and 0 NO SHOW appointments. documented in this encounter Plan of Treatment Upcoming Encounters Date Type Department Care Team (Late st Contact Info) Description 02/06/2023 5:30 PM EDT [facility] [address] [place] [address] Sujata Lewis LCSW [address] [place] [address] 03/06/2023 1:30 PM EST Telemedicine Psychiatry, [address] [place] [address] Trey Anne MD [address] [place] [address] 12/18/2023 8:00 AM EDT Office Visit Family Practice [facility] [address] [facility] [place] [address] Oksana Liu MD [address] [place] [address] Health Maintenance Due Date Last Done Comments [...] filedocumented as of this encounter Care Teams Assembler For Puller Over Machine Relationship Specialty Start Date End Date Oksana Liu MD [address] [place] [address] PCP - General Family Medicine 12/15/22 documented as of this encounter
--- OUTSIDE RECORDS SUMMARY | 2023-02-28 07:04 | External Medical Summary | Summary of Care ---
Author Name Unknown Organization [facility] Address [address] [place] [address] Phone [phone] Care Team Providers Care Tamper Operator Name Role Phone Oksana Liu MD Primary Care Provider [phone] Reason for Visit * Reason Onset Date Comments Forms Request 12/15/2022 Encounter Details Date Type Department Care Team Description 12/15/2022 Telephone Family Practice [facility] [place] [address] [facility] [place] [address] Oksana Liu MD [address] [place] [address] Forms Request Allergies Active Allergy Reactions Severity Noted Date Comments Amitriptyline Rash Medium 11/12/2018 documented as of this encounter (statuses as of 12/15/2022) Medications Medication Sig Dispensed Refills Start Date [...] as of this encounter (statuses as of 12/15/2022) Active Problems Problem Noted Date Food insecurity 04/19/2021 Overview: Per [facility] Protocol MDD (major depressive disorder), recurre nt episode, mild 05/13/2020 FRANCOIS (generalized anxiety disorder) 09/14 ADHD (attention deficit hyperactivity di sorder), combined type 09/14/2018 Sleep disturbance 04/16/2012 Allergic rhinitis Mild intermittent asthma without complic ation documented as of this encounter (statuses as of 12/15/2022) Resolved Problems Problem Noted Date Resolved Date Bipolar 1 disorder 07/24/2017 09/14/2018 Primary insomnia 01/01/2016 09/14/2018 Dizziness 06/23/2015 03/30/2018 Dizziness 07/09/2012 05/12/2015 Ganglion 07/09/2012 03/30/2018 Panic disorder 04/16/2012 09/14/2018 Anxiety 02/23/2021 documented as of this encounter (statuses as of 12/15/2022) Immunizations Name Administration Dates Next Due DTaP - Dipth/Tet/Acell Pertussis 995,01/19/1993,12/21/1992, 993 Haemophilus B (HIB) 11/16/1992 Hepatitis B, 0-19 yrs 06/18/2002,03/12/2002,12/09 MMR [...] encounter Miscellaneous Notes * Telephone Encounter - ROBBIE Ontiveros - 12/15/2022 12:21 PM EDT Patient was seen in FP office and brought forms to be filled out for Jessica regarding SS disability claim for mental health reasons, needs to be filled out by Psychiatry. States he only hastelemed video visits and left the form here. Would you like them to be sent via inter-office? documented in this encounter Plan of Treatment Upcoming Encounters Date Type Specialty Care Team Description 12/20/2022 Telemedicine Psychology Sujata Lewis LCSW [address], [place] [id number] 01/02/2023 Telemedicine Psychiatry Trey Anne MD [address], [place] [id number] 12/18/2023 Office Visit Family Medicine Oksana Liu MD [address] [place] [address] Health Maintenance Due Date Last Done Comments [...] filedocumented as of this encounter Care Teams Tamper Operator Relationship Specialty Start Date End Date Oksana Liu MD [address] [place] [address], [place] [address] PCP - General Family Medicine 12/15/22 documented as of this encounter
--- OUTSIDE RECORDS SUMMARY | 2023-02-28 07:04 | External Medical Summary | Summary of Care ---
Author Name Unknown Organization [facility] Address [address] [place] [address] Phone [phone] Care Team Providers Care Support Associate Name Role Phone Oksana Liu MD Primary Care Provider [phone] Reason for Visit * Reason Onset Date Comments Forms Request 12/15/2022 Encounter Details Date Type Department Care Team Description 12/15/2022 Telephone Family Practice [facility] [place] [address] [facility] [place] [address] Oksana Liu MD 200 [facility] [place] [address] Forms Request Allergies Active Allergy Reactions Severity [...] Noted Date Food insecurity 04/19/2021 Overview: Per [facility] Protocol MDD (major depressive disorder), recurre [...] Telephone Encounter - ROBBIE Ontiveros - 12/15/2022 2:00 PM EDT Email sent. * Telephone Encounter - ROBBIE Ontiveros - [...] Telemedicine Psychology Sujata Lewis LCSW [address] [place], [place] [id number] 01/02/2023 Telemedicine Psychiatry Trey Anne MD [address] [place] [address] 12/18/2023 Office Visit Family Medicine Oksana Liu MD [address] [place] [address] Health Maintenance Due Date Last Done Comments [...] filedocumented as of this encounter Care Teams Support Associate Relationship Specialty Start Date End Date Oksana Liu MD [address] [place] [id number] PCP - General Family Medicine 12/15/22 documented as of this encounter
--- OUTSIDE RECORDS SUMMARY | 2023-02-28 07:04 | External Medical Summary | Summary of Care ---
Author Name Unknown Organization [facility] Address [address] [place] [address] Phone [phone] Care Team Providers Care Events Intern Name Role Phone Azul Stephens PA-C Primary Care Provider + [phone] Reason for Visit * Reason Comments Follow Up Depression Anxiety * - Authorized Specialty Diagnoses / Procedures Referred By Contmusa t Referred To Contact Referral ID Status Reason Start Date Expiration Date V isits Requested Visits Authorized [id number] Authorized 07/09/2022 07/08/2023 999 [id number] Encounter Details Date Type Department Care Team Description 12/06/2022 [facility] [address], [place] [id number] Sujata Lewis [facility] [address], [place] [id number] Panic disorder*; FRANCOIS (generalized anxiety disorder); Major depressive disorder, recurrent episode, in partial remission (HCC) Allergies Active Allergy Reactions Severity Noted Date Comments Amitriptyline Rash Medium 11/12/2018 documented as of this encounter (statuses as of 12/06/2022) Medications Medication Sig Dispensed Refills Start Date End Date Status Flovent HFA 110 MCG/ACT Inhalation Aerosol (fluticasone)Indicati ons:Mild intermittent asthma with exacerbation INHALE 2 PUFFS BY MOUTH TWICE A DAY 12 g 5 11/16/2020 Active Diclofenac Sodium 50 MG Oral Tablet Delayed Release (Voltaren) Take 1 Tablet by mouth 3 times a day as needed for Pain. Take with food. 90 Tablet 5 03/24/2021 Active ARIPiprazole 5 MG Oral Tablet (Abilify) [...] as of this encounter (statuses as of 12/06/2022) Active Problems Problem Noted Date Food insecurity 04/19/2021 Overview: Per [facility] Protocol MDD (major depressive disorder), recurre nt episode, mild 05/13/2020 FRANCOIS (generalized anxiety disorder) 09/14 Major depressive disorder, recurrent, mo derate 09/14/2018 ADHD (attention deficit hyperactivity di sorder), combined type 09/14/2018 Sleep disturbance 04/16/2012 Allergic rhinitis Intermittent asthma with reliever use up to twice per week documented as of this encounter (statuses as of 12/06/2022) Resolved Problems Problem Noted Date Resolved Date Bipolar 1 disorder 07/24/2017 09/14/2018 Primary insomnia 01/01/2016 09/14/2018 Dizziness 06/23/2015 03/30/2018 Dizziness 07/09/2012 05/12/2015 Ganglion 07/09/2012 03/30/2018 Panic disorder 04/16/2012 09/14/2018 Anxiety 02/23/2021 documented as of this encounter (statuses as of 12/06/2022) Social History Tobacco Use Types Packs/Day Years Used Date Smoking Tobacco: Never Smokeless Tobacco: Never Alcohol Use Standard Drinks/Week Comments Yes 0 (1 standard drink = 0.6 oz pur e alcohol) rare Sex Assigned at Date Recorded Not on file Job Start Date Occupation Industry Not on file Not on file Not on file documented as of this encounter Progress Notes * Sujata LewisRONNELL - 12/06/2022 4:32 PM EDT Patient location: HOME. I was not in a hospital or clinic location. After connecting through [employer], patient was verified with two unique identifiers. Patient (or authorized legal retail field representative) was then informed that this was [...] that I have reviewed their record in [employer] and presented the opportunity for them to ask any questions regarding the visit today. The patient agreed to participate. Provider reviewed elements of Outpatient Services Description including limits of confidentiality, how to contact the department, risks and benefits of treatment and consent for treatment. Start Time: 4:32PM Stop Time: 5:02PM Total direct time: 30 minutes BEHAVIORAL MEDICINE RETURN VISIT PROGRESS NOTE [place] [id number] 12/06/2022 4:32 PM TYPE OF VISIT: Individual DIAGNOSIS: Panic disorder (Primary) FRANCOIS (generalized anxiety disorder) Major depressive disorder, recurrent episode, in partial remission (HCC) REASON FOR SESSION: Individual therapy Session #: 6 with this provider SESSION FOCUS: Rapport building, treatment planning, Developing coping skills NOTES: Therapist met with patient to complete an individual session. Pt shared symptoms of depression and anxiety he currently experiences. Pt continued to discuss recent hardships that affect his mental health. Pt continued to share the recent financial stressors and where he is in he process applying for disability. Pt briefly discussed how he and his "" have been exploring options for Pre-k for their son. PT continued to share his thoughts about such. Pt identified how he drove and explored hisexperience with such. Patient and therapist identified the following strengths that will aid in treatment: Honest, open, reported driving twice since last session. Patient and therapist identified the following needs: Continue working on managing symptoms and continue on medication management. Pt identified needed to schedule an appt with his PCP. MENTAL STATUS AND BEHAVIORAL OBSERVATIONS: Appearance: casually [...] 3 2. Feeling down, depressed, or hopeless 2 3. Trouble falling asleep, staying asleep, or sleeping too much 3 4. Feeling tired or having little energy 3 5. Poor appetite or overeating 2 6. Feeling bad about yourself -- or [...] might happen 3 FRANCOIS-7 TOTAL SCORE 21 COMPLETED 11/15/22 Patient Health Questionnaire (PHQ-9): 22 (0-4 Min; Mild -5-9; Moderate 10-14; Mod Severe 15-19; Severe 20+) PHQ-9, item 9 = 0 Generalized Anxiety Disorder (FRANCOIS-7): 21 (0-4 Min; Mild -5-9; Moderate 10-14; Severe 15+) Suicide/Homicidal Assessment Validated Screening and Assessment Measures PHQ-9, item 9: NEGATIVE C-SSRS administered: Yes, see rooming tool [place] Suicide Severity Rating Scale Results 12/06/2022 16:46 [place] SUICIDE SEVERITY RATING SCALE (C-SSRS) Have [...] risk from last session (see note dated 11/15/22 for further details) Safety Plan: Crisis Planning: What I can do if I ever experience a crisis (much worse symptoms, severe distress or thoughts of self-harm): Art/Music, Talking to loved one or friend or trusted person, Express my feelings and [place], play drums People I can call in the event of a crisis: Spouse/partner/significant other: My - Marcus Additional resources I can utilize if the previous steps are ineffective (e.g: ED, hotlines): Suicide and Crisis [facility] - 98 INTERVENTION: Reviewing Crisis Planning, Processing, developing coping [...] Barriers: WIFI due to moving [facility] the [facility] Crisis Planning: What I can do if I ever experience a crisis (much worse symptoms, severe distress or thoughts of self-harm): Art/Music, Talking to loved one or friend or trusted person, Express my feelings and [place], play drums People I can call in the event of a crisis: Spouse/partner/significant other: My - Marcus Additional resources I can utilize if the previous steps are ineffective (e.g: ED, hotlines): Suicide and Crisis Lifeline - 988 Signature Obtained on Treatment Plan Patient/ Family Received Copy of Treatment Plan Duration of Treatment Frequency of Treatment Treatment plan developed with patient and/or family during telemedicine/telephonic visit. No treatment plan signature page was signed. Will obtain signatures once sessions resume in clinic. Patient has access to [employer] 8-11 sessions every other week Patient Identified Needs/Goals Interventions Objective/ Discharge Criteria Problem/Need 1: Anxiety and Depression Cognitive Behavioral Therapy (CBT), which includes psychoeducation, cognitive restructuring, relaxation/diaphragmatic breathing, problem-solving, and behavioralactivation FRANCOIS<5 Please choose a method to track patient's improvement based on clinical assessment: FRANCOIS-7 Data Discharge Discussed with patient: Patient continues to need treatment Collaboration of Care: Yes, provider within [facility], information is shared automatically in medical record Is this the patients' initial treatment plan? Yes FOLLOW-UP PLAN: Return: 2 weeks Appointment: 12/20/22 Action Plan: 1. Continue Cognitive Behavioral Therapy 2. Continue medication management with Trey Anne 3. Continue applying for disability Treatment plan reviewed with the patient. Patient voices understanding and concurs with plan. PATIENT EDUCATION: Verbal & written Sujata Lewis LCSW Division of Psychiatry & Behavioral Medicine [facility] [phone] Main Office # for Behavioral Health: [phone] National Suicide Prevention Lifeline : 988 Crisis Textline : Text "HOME" to 946936 to connect with a crisis counselor Crisis Numbers by [facility]: [place] [facility] Services - Emergency Services [facility] (-7-YOU CAN) resolve Crisis Network [facility] . [facility] - Crisis Intervention [place] [facility] Crisis Help-Line [place] & [facility] - Crisis Intervention Services [place] [facility] [employer] - Crisis Intervention [place] Choose option [address] [place] [address] of Track Moving Machine Operator [place] & [place] Crisis Intervention [place] [facility] - Mental Health Crisis [place] - Crisis Intervention [place] [facility] - Crisis Intervention Otilio Gr Potter - Crisis Line [place] - Mental Health Crisis Hotline [place] [facility] - Crisis Services [place] [facility] [place] Service [facility] [employer] - Crisis Intervention [place] - Mental Health Crisis Intervention Services [place] [facility] MH/ID Program [place], [place], [place], [place] - Crisis System [facility] - Crisis Hotline [place] (3-077-004-LOGZ) [facility] - Crisis Intervention [place] [facility] - Crisis Intervention [facility] - Crisis Services [place] [facility] Health - Crisis Center [place] [facility] Crisis Hotline [place] (8:30 am-5:00 pm) OR (after 5:00 pm, weekends & holidays) [facility] Crisis Intervention Program [facility] - Mental Health Crisis Line [place] Gavin and Jay - [facility] Crisis [place] & [facility] - Crisis Intervention [place] [facility] - Mental Health Crisis Service [place] [facility] - Crisis Intervention [place] [facility] - Crisis Intervention [place] [facility] - Help Line [facility] MH/ID Program [facility] - Crisis Intervention [place] [facility] - Crisis Intervention [place] [facility] Emergency Services, [facility] - Crisis Intervention [place] [facility] Behavioral Health - Emergency Services [place] [facility] - Crisis Line [place] - DBHIDS - Suicide and Crisis Intervention Hotline [facility] - Crisis/ Emergency Services [place] [facility] - Emergency Contact Line [place] [facility] - Crisis Line Deepak ext. 1 [facility] Services [facility] Action - Crisis Intervention Hotline [place] [facility] Crisis Intervention Services documented in this encounter Plan of Treatment Upcoming Encounters Date Type Specialty Care Team Description 12/15/2022 Office Visit Family Medicine Oksana Liu MD [address] [place] [address] 12/20/2022 Telemedicine Psychology Sujata Lewis LCSW [address], [place] [id number] 01/02/2023 Telemedicine Psychiatry Trey Anne MD [address] [place] [address] Health Maintenance Due Date Last Done Comments Hepatitis B (1 of 3 - 3-dose series) 1989 COVID-19 Vaccine (#1) 1989 Pneumococcal Vaccine: Pediat rics (0 to 5 Years) and At-Risk Patients (6 to 64 Years) (1 - PCV) 1995 HIV Screening 2004 Hepatitis C Screening 2007 DTaP,Tdap,and Td Vaccines (2 - Tdap) 2008 09/19/1994 Depression, Most Recent Scor e >= 10 (will fire each visit until score < 10) 03/25/2021 03/24/2021 *SPIROMETRY ONCE FOR ASTHMA-ADULT 03/03/2022 Influenza Vaccine (FLU shot) (#1) 2022 GARDASIL-HPV IMMUNIZATION SERIES Aged Out No longer eligible based on patient's age to complete this topic MENINGOCOCCAL (MENACTRA/MENVEO) Aged Out No longer eligible based on patient's age to complete this topic documented as of this encounter [employer] Not on filedocumented as of this encounter Visit Diagnoses Diagnosis Panic disorder- Primary Panic disorder without agoraphobia FRANCOIS (generalized anxiety disorder) Generalized anxiety disorder Major depressive disorder, recurrent episode, in partial remission (HCC) Major depressive disorder, recurrent episode, in partial or unspecified remission documented in this encounter Care Teams Events Intern Relationship Specialty Start Date End Date Azul Stephens PA-C [address] [place] [address] PCP - General Physician [employer] 11/05/20 documented as of this encounter
--- OUTSIDE RECORDS SUMMARY | 2023-02-28 07:04 | External Medical Summary | Summary of Care ---
Author Name Unknown Organization [facility] Address [address] [place] [address] Phone [phone] Care Team Providers Care Detailer School Photographs Name Role Phone Azul Stephens PA-C Primary Care Provider [phone] Reason for Visit * Reason Comments Follow Up Anxiety Medication Management * - Authorized Specialty Diagnoses / Procedures Referred By Anne carrera Referred To Contact Referral ID Status Reason Start Date Expiration Date V isits Requested Visits Authorized [id number] Authorized 07/09/2022 07/08/2023 [id number] Encounter Details Date Type Department Care Team Description 09/26/2022 [facility] [address], [place] [id number] Sujata Lewis LCSW [address], [place] [phone] FRANCOIS (generalized anxiety disorder)*; Mild recurrent major depression (HCC) Allergies Active Allergy Reactions Severity Noted Date Comments Amitriptyline Rash Medium 11/12/2018 documented as of this encounter (statuses as of 09/26/2022) Medications Medication Sig Dispensed Refills Start Date [...] with food. 90 Tablet 5 03/24/2021 Active Albuterol Sulfate HFA 108 (90 Base) MCG/ACT Inhalation Aerosol SolutionIndications:I ntermittent asthma with reliever use up to twice per week without complication TAKE 2 PUFFS BY MOUTH EVERY 4 HOURS NEEDED FOR WHEEZE 18 g 3 10/25/2021 Active Mirtazapine 15 MG Oral Tablet (Remeron) Take by mouth 1 Tablet before bedtime. 30 Tablet 1 11/01/2021 Active QUEtiapine Fumarate 50 MG Oral Tablet (SEROquel) Take 1 Tablet (50 mg) by mouth at bedtime. 30 Tablet 2 03/14/2022 Active Sertraline HCl 100 MG Oral Tablet (Zoloft) Take 2 Tablets by mouth in the morning. In the morning.. 180 Tablet 1 04/26/2022 Active ARIPiprazole 5 MG Oral Tablet (Abilify) Take 1.5 Tablets by mouth in the morning. 45 Tablet 0 09/02/2022 Active clonazePAM 0.5 MG Oral Tablet (KlonoPIN) Take 1 Tablet by mouth in the morning and 1 Tablet before bedtime. 30 Tablet 1 09/21/2022 Active documented as of this encounter (statuses as of 09/26/2022) Active Problems Problem Noted Date Food insecurity 04/19/2021 Overview: Per [facility] Protocol MDD (major depressive disorder), recurre nt episode, mild 05/13/2020 FRANCOIS (generalized anxiety disorder) 09/14 Major depressive disorder, recurrent, mo derate 09/14/2018 ADHD (attention deficit hyperactivity di sorder), combined type 09/14/2018 Sleep disturbance 04/16/2012 Allergic rhinitis Intermittent asthma with reliever use up to twice per week documented as of this encounter (statuses as of 09/26/2022) Resolved Problems Problem Noted Date Resolved Date Bipolar 1 disorder 07/24/2017 09/14/2018 Primary insomnia 01/01/2016 09/14/2018 Dizziness 06/23/2015 03/30/2018 Dizziness 07/09/2012 05/12/2015 Ganglion 07/09/2012 03/30/2018 Panic disorder 04/16/2012 09/14/2018 Anxiety 02/23/2021 documented as of this encounter (statuses as of 09/26/2022) Social History Tobacco Use Types Packs/Day Years [...] Progress Notes * Sujata Lewis LCSW - 09/26/2022 4:26 PM EDT Patient location: HOME. I was not in a hospital or clinic location. After connecting through [facility], patient was verified with two unique identifiers. Patient (or authorized legal underwriting account representative) was then informed that this was a Telemedicine visit and being conducted confidentially over secure lines. Methods to assure confidentiality were taken. Patient acknowledged consent and understanding of privacy and security of the Telemedicine visit. The patient agreed to participate. My office door was closed. No one else was in the room with me. I informed the patient that I havereviewed their record in [facility] and presented the opportunity for them to ask any questions regardingthe visit today. The patient agreed to participate. Provider reviewed elements of Outpatient Services Description including limits of confidentiality, how to contact the department, risks and benefits of treatment and consent for treatment. Start Time: 4:30pm Stop Time: 5:22pm Total direct time: 52 minutes BEHAVIORAL MEDICINE RETURN VISIT PROGRESS NOTE [place] [id number] 09/26/2022 4:26 PM TYPE OF VISIT: Individual DIAGNOSIS: FRANCOIS (generalized anxiety disorder) (Primary) Mild recurrent major depression (HCC) REASON FOR SESSION: Individual therapy Session #: 2 with this provider SESSION FOCUS: Rapport building, treatment planning, NOTES: Therapist met with patient to complete an individual session. Service was unstable; spotty connection and some delays. "Perscribed medication- Klonopin 1 tab and taking half a tab". Pt shared not feeling good while driving in the car. "getting sweaty, anxious, just comes up, just happens". "Took myhalf Klonopin this morning and take half at night." Pt might gradually work up to taking it as prescribed but is going with caution. Patient and therapist identified the following strengths that will aid in treatment: Redirecting negative thinking to positive reinforcement. Trying to take family trips such as to [place]. Son has a teacher that comes once a week to assess for readiness for school. Patient and therapist identified the following needs: Medication management and adjusting to new move. "Limited space and resources". 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 MENTAL STATUS AND BEHAVIORAL OBSERVATIONS: Appearance: groomed Behavior: cooperative Speech: normal pitch, rate and volume Affect: Congruent with content of conversation Thought Process: within normal limits and goal directed Thought Content: within normal limits Intellectual Function: within normal limits Sensorium: alert and oriented to person, place, time and situation Cognition: grossly intact Insight/Judgment: good PROGRESS TOWARDS GOALS: Goal: Improved self-management of symptoms, coping strategies, and insight. Objective Measures: PHQ and FRANCOIS screenings completed on 09/15/22. Suicide/Homicidal Assessment Validated Screening and Assessment Measures C-SSRS administered: Yes, see rooming tool [place] Suicide Severity Rating Scale Results 09/26/2022 16:51 [place] SUICIDE SEVERITY RATING SCALE (C-SSRS) Have [...] No Level of Risk No Risk Identified Protective Factors Social Support/Family;Help-Seeking Behaviors;Identifies reasons for living Risk Factors History of Depression;Anxiety;Family history of suicide attempts/completion - No change in risk from last session (see note dated 09/15/22 for further details) Safety Plan: Crisis Planning: What I can do if I ever experience a crisis (much worse symptoms, severe distress or thoughts of self-harm): Art/Music, Talking to loved one or friend or trusted person, Express my feelings and Blanca, play drums People I can call in the event of a crisis: Spouse/partner/significant other: My - Marcus Additional resources I can utilize if the previous steps are ineffective (e.g: ED, hotlines): Suicide and Crisis Lifeline - INTERVENTION: Goal Setting, Treatment Planning, Crisis Planning, Processing, reviewing hx medication management, developing coping skills, encouraged positive thinking. TREATMENT [...] Barriers: WIFI due to moving to the [facility] Crisis Planning: What I can do if I ever experience a crisis (much worse symptoms, severe distress or thoughts of self-harm): Art/Music, Talking to loved one or friend or trusted person, Express my feelings and Blanca, play drums People I can call in the event of a crisis: Spouse/partner/significant other: My - Marcus Additional resources I can utilize if the previous steps are ineffective (e.g: ED, hotlines): Suicide and Crisis [facility] Signature Obtained on Treatment Plan Patient/ Family Received Copy of Treatment Plan Duration of Treatment Frequency of Treatment Treatment plan developed with patient and/or family during telemedicine/telephonic visit. No treatment plan signature page was signed. Will obtain signatures once sessions resume in clinic. [facility] every other week Patient Identified Needs/Goals Interventions Objective/ Discharge Criteria Problem/Need 1: Anxiety and Depression Cognitive Behavioral Therapy (CBT), which includes psychoeducation, cognitive restructuring, relaxation/diaphragmatic breathing, problem-solving, and behavioralactivation FRANCOIS<5 Please choose a method to track patient's improvement based on clinical assessment: FRANCOIS-7 Data Discharge Discussed with patient: Patient continues to need treatment Collaboration of Care: Yes, provider within [facility], information is shared automatically in medical record Is this the patients' initial treatment plan? Yes FOLLOW-UP PLAN: Return: 3 weeks Appointment: 10/17/22 Action Plan: 1. Continue Cognitive Behavioral Therapy 2. Continue medication management 3. Continue exploring resources, and coping strategies Treatment plan reviewed with the patient. Patient voices understanding and concurs with plan. PATIENT EDUCATION: Verbal & written Sujata Lewis LCSW Division of Psychiatry & Behavioral Medicine [facility] [phone] National Suicide Prevention Lifeline : 580 Crisis Textline : Text "HOME" to 310035 to connect with a crisis counselor Crisis Numbers by [facility]: [facility] Services - Emergency Services [facility] (823-3-YOU CAN) resolve Crisis Network Juliane Soco . The Open Door - Crisis Intervention [place] [facility] Crisis Help-Line [facility] - Crisis Intervention [facility] Service Access Dragonfly. - Crisis Intervention [place] Choose option 1 - [facility] of Video Game Animator Gilmer Pryor & [place] Crisis Intervention [place] [facility] - Mental Health Crisis Gu[facility] - Crisis Intervention [place] [facility] - Crisis Intervention Otilio Gr Potter - Crisis Line Perry Alicea Pike - Mental Health Crisis Hotline [place] [facility] - Crisis Services [place] [facility] Crisis Center [place] Service Access Hashdoc, FibeRio. - Crisis Intervention Sulaiman - Mental Health Crisis Intervention Services [place] Bee-Marco MH/ID Program Duglas Barrett Snyder, [place] - Crisis System [place] [facility] Human [facility] - Crisis Hotline Valencia & Duane (7-105-700-HELP) [facility] - Crisis Intervention [place] [facility] - Crisis Intervention [facility] - Crisis Services [place] [facility] - Crisis Center [place] [phone] [facility] - Crisis Hotline [place] (8:30 am-5:00 pm) OR (after 5:00 pm, weekends & holidays) Fouzia [facility] Crisis Intervention Program [facility] Mental Health Crisis Line Neeru Gavin and Jay - [facility] Crisis Mónica & Marilyn [facility] [place] [facility] - Crisis Intervention [place] [facility] - Mental Health Crisis Service [facility] - Crisis Intervention [place] [facility] - Crisis Intervention [place] [facility] - Help Line Bee Bee-Marco MH/ID Program Laure [facility] - Crisis Intervention [place] [facility] - Crisis Intervention [place] [facility] - Crisis Intervention [place] [facility] - Emergency Services [place] [facility] - Crisis Line [place] - DBHIDS - Suicide and Crisis Intervention Hotline [facility] - Crisis/ Emergency Services [place] [facility] - Emergency Contact Line [place] [facility] - Crisis Line Deepak ext. 1 [facility] Human Services [facility] [facility] Action - Crisis Intervention Hotline Mang[facility] Crisis Intervention Services documented in this encounter Plan of Treatment Upcoming Encounters Date Type Specialty Care Team Description 10/19/2022 Telemedicine Psychology Sujata Lewis LCSW [address] [place] [address] 10/24/2022 Telemedicine Psychology Sujata Lewis LCSW [address], [place] [phone] 10/31/2022 Telemedicine Psychology Sujata Lewis LCSW [address], [place] [phone] 11/07/2022 Telemedicine Psychiatry Trey Anne MD [address], [place] [phone] Health Maintenance Due Date Last Done Comments [...] FOR ASTHMA-ADULT 03/03/2022 Influenza Vaccine (FLU shot) (Season Ended) 2022 GARDASIL-HPV IMMUNIZATION SERIES Aged Out No longer eligible based on patient's age to complete this topic MENINGOCOCCAL (MENACTRA/MENVEO) Aged Out No longer eligible based on patient's age to complete this topic documented as of this encounter Medical Devices Not on filedocumented as of this encounter Visit Diagnoses Diagnosis FRANCOIS (generalized anxiety disorder)- Primary Generalized anxiety disorder Mild recurrent major depression (HCC) Major depressive disorder, recurrent episode, mild documented in this encounter Care Teams Detailer School Photographs Relationship Specialty Start Date End Date Azul Stephens PA-C [address] [place] [address] PCP - General Physician Tool Specialist 11/05/20 documented as of this encounter
--- OUTSIDE RECORDS SUMMARY | 2023-02-28 07:04 | External Medical Summary | Summary of Care ---
Author Name Unknown Organization [facility] Address [address] [place] [address] Phone [phone] Care Team Providers Care French Polisher Name Role Phone Azul Stephens PA-C Primary Care Provider [phone] Reason for Visit * Reason Onset Date Comments Medication Refill 10/21/2022 Encounter Details Date Type Department Care Team Description 10/21/2022 Refill Psychiatry, [facility] [address] [place] [address] Trey Anne MD [address] [place] [address] Allergies Active Allergy Reactions Severity Noted Date Comments Amitriptyline Rash Medium 11/12/2018 documented as of this encounter (statuses as of 10/25/2022) Medications Medication Sig Dispensed Refills Start Date End Date Status Flovent HFA 110 MCG/ACT Inhalation Aerosol (fluticasone)Indic ations:Mild intermittent asthma with exacerbation INHALE 2 PUFFS [...] at bedtime. 30 Tablet 2 03/14/2022 Active ARIPiprazole 5 MG Oral Tablet (Abilify) [...] before bedtime. 60 Tablet 1 10/25/2022 Active Sertraline HCl 100 MG Oral Tablet (Zoloft) Take 2 Tablets by mouth in the morning. In the morning.. 180 Tablet 1 04/26/2022 10/21/2022 Discontinued (Refill) clonazePAM 0.5 MG Oral Tablet (KlonoPIN) Take 1 Tablet by mouth in the morning and 1 Tablet before bedtime. 30 Tablet 1 09/21/2022 10/24/2022 Discontinued (Refill) documented as of this encounter (statuses as of 10/25/2022) Active Problems Problem Noted Date Food insecurity 04/19/2021 Overview: Per [facility] Protocol MDD (major depressive disorder), recurre nt episode, mild 05/13/2020 FRANCOIS (generalized anxiety disorder) 09/14 Major depressive disorder, recurrent, mo derate 09/14/2018 ADHD (attention deficit hyperactivity di sorder), combined type 09/14/2018 Sleep disturbance 04/16/2012 Allergic rhinitis Intermittent asthma with reliever use up to twice per week documented as of this encounter (statuses as of 10/25/2022) Resolved Problems Problem Noted Date Resolved Date Bipolar 1 disorder 07/24/2017 09/14/2018 Primary insomnia 01/01/2016 09/14/2018 Dizziness 06/23/2015 03/30/2018 Dizziness 07/09/2012 05/12/2015 Ganglion 07/09/2012 03/30/2018 Panic disorder 04/16/2012 09/14/2018 Anxiety 02/23/2021 documented as of this encounter (statuses as of 10/25/2022) Social History Tobacco Use Types Packs/Day Years [...] Telephone Encounter - Trey Anne MD - 10/25/2022 8:50 AM EDT Signed Prescriptions: Disp Refills Sertraline HCl 100 MG Oral Tablet (Zoloft) 180 Ta*1 Sig: Take 2 Tablets by mouth in the morning. In the morning..Authorizing Provider: TREY ANNE clonazePAM 0.5 MG Oral Tablet (KlonoPIN) 60 Tab*1 Sig: Take 1 Tablet by mouth in the morning and 1 Tabletbefore bedtime.Authorizing Provider: TREY ANNE * Telephone Encounter - Anuradha Marina LPN - 10/25/2022 7:35 AM EDTPending Prescriptions: Disp Refills Sertraline HCl 100 MG Oral Tablet (Zoloft) 180 Ta*1 Sig: Take 2 Tablets by mouth in the morning. In the morning.. clonazePAM 0.5 MG Oral Tablet (KlonoPIN) 30 Tab*1 Sig: Take by mouth 2 times a day. * Telephone Encounter - Anuradha Marina LPN - 10/25/2022 7:34 AM EDTPending Prescriptions: Disp Refills Sertraline HCl 100 MG Oral Tablet (Zoloft) 180 Ta*1 Sig: Take 2 Tablets by mouth in the morning. In the morning.. clonazePAM 0.5 MG Oral Tablet (KlonoPIN) 30 Tab*1 Sig: Take by mouth 2 times a day. * Telephone Encounter - Anuradha Marina LPN - 10/25/2022 7:33 AM EDT Refill request from patient ([email or web address]) for Klonopin and Zoloft. Medication last filled on 09/21/2022 (15 day supply) with 1 refills. Patient last seen on 09/21/2022 with return appointment scheduled for 11/07/2022. Patient had 0 cancelled appointments and 0 NO SHOW appointments. * Telephone Encounter - Julieta Gray CPhT - 10/24/2022 1:51 PM EDT Did you pend patient's preferred pharmacy and medication before forwarding?yes Pharmacy: [id number] Pending Prescriptions: Disp Refills Sertraline HCl 100 MG Oral Tablet (Zoloft)180 Ta*1 Sig: Take 2 Tablets by mouth in the morning. In the morning.. clonazePAM 0.5 MG Oral Tablet (KlonoPIN) 30 Tab*1 Sig: Take by mouth 2 times a day. Last Visit: 03/13/2019 (in office), 09/21/2022 (telemedicine) Next Visit: 11/07/2022 If no future appointments scheduled, and last appointment is greater than a year ago, please schedule patient for a follow-up appointment Last date the medication was ordered: 09/21/2022 Is this request for a controlled substance?Yes, What was the last refill date 09/21/2022 w/ [id number] and dosage 0.5 and Urine Drug Screen Not completed Urine Drug Screen:No results found for this or any previous visit. Patient Phone Numbers Labs: Lab Results Component Value Date/Time CREAT 1.0 02/25/2021 10:26 AM POTASSIUM 4.6 02/25/2021 10:26 AM ALT 13 02/25/2021 10:26 AM documented in this encounter Plan of Treatment Upcoming Encounters Date Type Specialty Care Team Description 10/31/2022 Telemedicine Psychology Sujata Lewis LCSW [address], [place] [phone] 11/07/2022 Telemedicine Psychiatry Trey Anne MD [address], [place] [phone] 11/15/2022 Telemedicine Psychology Sujata Lewis LCSW [address], [place] [phone] Health Maintenance Due Date Last Done Comments [...] filedocumented as of this encounter Care Teams French Polisher Relationship Specialty Start Date End Date Azul Stephens PA-C [address] [place] [address] PCP - General Physician Job Analysis Manager 11/05/20 documented as of this encounter
--- OUTSIDE RECORDS SUMMARY | 2023-02-28 07:04 | External Medical Summary | Summary of Care ---
Author Name Unknown Organization [facility] Address [address] [facility] [address] Phone [phone] Care Team Providers Care Dry Sander Name Role Phone Azul Stephens PA-C Primary Care Provider [phone] Reason for Visit * Reason Comments eRx-Medication Refill Encounter Details Date Type Department Care Team Description 11/23/2022 Refill Family Practice [facility] [address] [facility] [place] [address] Elías Nicole, [address] [facility] [address] Intermittent asthma with reliever use up to twice per week without complication Allergies Active Allergy Reactions Severity Noted Date Comments Amitriptyline Rash Medium 11/12/2018 documented as of this encounter (statuses as of 11/24/2022) Medications Medication Sig Dispensed Refills Start Date [...] FOR WHEEZE 18 g 3 11/24/2022 Active Albuterol Sulfate HFA 108 (90 Base) MCG/ACT Inhalation Aerosol SolutionIndication s:Intermittent asthma with reliever use up to twice per week without complication TAKE 2 PUFFS BY MOUTH EVERY 4 HOURS NEEDED FOR WHEEZE 18 g 3 10/25/2021 3 Discontinued documented as of this encounter (statuses as of 11/24/2022) Active Problems Problem Noted Date Food insecurity 04/19/2021 Overview: Per [facility] Protocol MDD (major depressive disorder), recurre nt episode, mild 05/13/2020 FRANCOIS (generalized anxiety disorder) 09/14 Major depressive disorder, recurrent, mo derate 09/14/2018 ADHD (attention deficit hyperactivity di sorder), combined type 09/14/2018 Sleep disturbance 04/16/2012 Allergic rhinitis Intermittent asthma with reliever use up to twice per week documented as of this encounter (statuses as of 11/24/2022) Resolved Problems Problem Noted Date Resolved Date Bipolar 1 disorder 07/24/2017 09/14/2018 Primary insomnia 01/01/2016 09/14/2018 Dizziness 06/23/2015 03/30/2018 Dizziness 07/09/2012 05/12/2015 Ganglion 07/09/2012 03/30/2018 Panic disorder 04/16/2012 09/14/2018 Anxiety 02/23/2021 documented as of this encounter (statuses as of 11/24/2022) Social History Tobacco Use Types Packs/Day Years [...] encounter Miscellaneous Notes * Telephone Encounter - Lisa Peña PA-C - 11/24/2022 7:12 PM EDTSigned Prescriptions: Disp Refills Albuterol Sulfate HFA 108 (90 Base) MCG/AC*18 g 3 Sig: INHALE 2 PUFFS BY MOUTH EVERY 4 HOURS NEEDED FOR WHEEZE Authorizing Provider: LISA PEÑA * Telephone Encounter - Blake Mclain it trainee - 11/24/2022 3:29 PM EDTPending Prescriptions: Disp Refills Albuterol Sulfate HFA 108 (90 Base) MCG/AC*18 g 3 Sig: INHALE 2 PUFFS BY MOUTH EVERY 4 HOURS NEEDED FOR WHEEZE * Telephone Encounter - Blake Mclain it trainee - 11/24/2022 3:29 PM EDT Received message from [facility] regarding patient needing labs. Placed call to patient to advise. Pt was agreeable to set up appointment but did not want to schedule at this time. Patient advised they willcall back to set up appointment. Thank you, Blake Mclain Progress Man [facility] 11/24/2022, 3:29 PM * Telephone Encounter - Hortencia Aguirre [facility] - 11/24/2022 7:49 AM EDTPending Prescriptions: Disp Refills Albuterol Sulfate HFA 108 (90 Base) MCG/AC*18 g 3 Sig: INHALE 2 PUFFS BY MOUTH EVERY 4 HOURS NEEDED FOR WHEEZE * Telephone Encounter - Hortencia Aguirre [facility] - 11/24/2022 7:49 AM EDT Please contact patient so that an appointment can be scheduled with his PRIMARY CARE provider before this refill can be authorized. After contacting patient, please forward request to the provider they schedule with (if unable to reach, use [facility]). Last Visit: 04/13/2021 (in office), 03/03/2021 (telemedicine) Next Visit: Visit date not found Hortencia Rutherford Clinical Pharmacist [facility] ([facility]) [phone] 11/24/2022, 7:49 AM documented in this encounter Plan of Treatment Upcoming Encounters Date Type Specialty Care Team Description 12/06/2022 Telemedicine Psychology Sujata Lewis LCSW [address] [place] [address] 01/02/2023 Telemedicine Psychiatry Trey Anne MD [address] [place] [address] Health Maintenance Due Date Last Done Comments [...] as of this encounter Visit Diagnoses Diagnosis Intermittent asthma with reliever use up to twice per week without complication documented in this encounter Care Teams Dry Sander Relationship Specialty Start Date End Date Azul Stephens PA-C [address] [facility] [place] [address] PCP - General Physician Retail District Manager 11/05/20 documented as of this encounter
--- OUTSIDE RECORDS SUMMARY | 2023-02-28 07:04 | External Medical Summary | Summary of Care ---
Author Name Unknown Organization [facility] Address [address] [place] [address] Phone [phone] Care Team Providers Care Administrative Coordinator Name Role Phone Oksana Liu MD Primary Care Provider [phone] Reason for Visit * Reason Comments Follow Up Encounter Details Date Type Department Care Team Description 12/15/2022 Office Visit Family Practice [facility] [address] [facility] [place] [address] Oksana Lui MD [address] [place] [address] Mild intermittent asthma without complication*; MDD (major depressive disorder), recurrent episode, mild (HCC); FRANCOIS (generalized anxiety disorder); Panic attacks; Vaccine counseling Allergies Active Allergy Reactions Severity Noted Date [...] HFA 108 (90 Base) MCG/ACT Inhalation Aerosol SolutionIndicatio ns:Intermittent asthma with reliever use up to twice per week without complication INHALE 2 PUFFS BY MOUTH EVERY 4 HOURS NEEDED FOR WHEEZE 18 g 3 11/24/2022 Active Flovent HFA 110 MCG/ACT Inhalation Aerosol (fluticasone)Arielle cations:Mild intermittent asthma with exacerbation INHALE 2 PUFFS BY MOUTH TWICE A DAY 12 g 5 11/16/2020 3 Discontinued Diclofenac Sodium 50 MG Oral Tablet Delayed Release (Voltaren) Take 1 Tablet by mouth 3 times a day as needed for Pain. Take with food. 90 Tablet 5 03/24/2021 3 Discontinued(Med ication List Clean Up) documented as of this encounter (statuses as of 12/15/2022) Active Problems Problem Noted Date Food insecurity 04/19/2021 Overview: Per [facility] Protocol MDD (major depressive disorder), recurre [...] on file documented as of this encounter Last Filed Vital Signs Vital Sign Reading Time Taken Comments Blood Pressure 112/70 12/15/2022 8:07 AM EDT Pulse 70 12/15/2022 8:07 AM EDT Temperature 36.2 C (97.1 F) 12/15/2022 8:07 AM ED T Respiratory Rate - - Oxygen Saturation 97% 12/15/2022 8:07 AM EDT Inhaled Oxygen Concentration - - Weight 77 kg (169 lb 12 oz) 12/15/2022 8:07 AM E DT Height 171.5 cm (5' 7.52") 12/15/2022 8:07 AM ED T Body Mass Index 26.18 12/15/2022 8:07 AM EDT documented in this encounter Progress Notes * Oksana Liu MD - 12/15/2022 8:05 AM EDT Subjective Chief Complaint Patient presents with Follow Up HPI: Mahendra Gaming is a 32 year old male. The following issues were addressed today: Here for follow-up. Has been following with psychiatry for MDD and FRANCOIS. Panic attacks have gotten worse so he is not driving anymore. Lost his job during the pandemic so not currently working. Recently started on Klonopin, which he takes twice daily. Helping some with the anxiety but making him tired. He is also taking Zoloft and Abilify. Has appointment with psych later this month. He also follows with psychology. Has mild intermittent asthma. Rarely needs albuterol inhaler. Was previously on Flovent but has notbeen taking. Declines flu vaccination. Review of Systems: See HPI Objective BP 112/70 | Pulse 70 | Temp 36.2 C (97.1 F) (Tympanic) | Ht 1.715 m (5' 7.52") | Wt 77 kg (169 lb 12 oz) | SpO2 97% | BMI 26.18 kg/m | BSA 1.92 m General: Well-appearing, no acute distress HENT: Head is normocephalic and atraumatic, no pharyngeal erythema, nose normal, ear canals normal and tympanic membranes clear bilaterally Eyes: No conjunctival injection, no scleral icterus Cardiovascular: Regular rate and rhythm, no murmur Respiratory: Good respiratory effort, breath sounds equal and clear to auscultation bilaterally Abdomen: Soft, non-distended, non-tender, normoactive bowel sounds Extremities: No edema Skin: Warm and dry Neurological: Alert and oriented, no focal deficits noted Psychiatric: Appropriate mood and affect Assessment & Plan Mild intermittent asthma without complication (Primary) Well-controlled. Continue current medication(s). MDD (major depressive disorder), recurrent episode, mild (HCC) FRANCOIS (generalized anxiety disorder) Panic attacks Management per psychiatry. Keep scheduled follow-up. Vaccine counseling Recommended flu vaccination. Patient declines at this time. Follow Up: Return in about 1 year (around 12/16/2023) for routine follow-up. This note was electronically signed by Oksana Liu MD documented in this encounter Nursing Notes * ROBBIE Ontiveros - 12/15/2022 8:04 AM EDT Patient presents in office today for a follow up with mental help- needs to establish care since Azul Stephens left. Has disability paperwork. documented in this encounter Plan of Treatment Upcoming Encounters Date Type Specialty Care Team Description 12/20/2022 Telemedicine Psychology Sujata Lewis LCSW [address] [place] [address] 01/02/2023 Telemedicine Psychiatry Trey Anne MD [address] [place] [address] 12/18/2023 Office Visit Family Medicine Oksana Liu MD [address] [place] [address] Health Maintenance Due Date Last Done Comments [...] as of this encounter Visit Diagnoses Diagnosis Mild intermittent asthma without complication- Primary Unspecified asthma MDD (major depressive disorder), recurrent episode, mild (HCC) Major depressive disorder, recurrent episode, mild FRANCOIS (generalized anxiety disorder) Generalized anxiety disorder Panic attacks Panic disorder without agoraphobia Vaccine counseling documented in this encounter Care Teams Administrative Coordinator Relationship Specialty Start Date End Date Oksana Liu MD [address] [place] [address] PCP - General Family Medicine 12/15/22 documented as of this encounter
--- OUTSIDE RECORDS SUMMARY | 2023-02-28 07:04 | External Medical Summary | Summary of Care ---
Author Name Unknown Organization [facility] Address [address] [place] [address] Phone [phone] Care Team Providers Care Screw Machine Operator Single Spindle Name Role Phone Azul Stephens PA-C Primary Care Provider [phone] Reason for Visit * Reason Comments Follow Up Anxiety * - Authorized Specialty Diagnoses / Procedures Referred By Anne t Referred To Contact Referral ID Status Reason Start Date Expiration Date V isits Requested Visits Authorized [id number] Authorized 07/09/2022 07/08/2023 [id number] Encounter Details Date Type Department Care Team Description 11/15/2022 [facility] [address] [place], [place] [id number] Sujata Lewis LCSW [address], [place] [id number] Panic disorder*; Adjustment disorder with depressed mood Allergies Active Allergy Reactions Severity Noted Date Comments Amitriptyline Rash Medium 11/12/2018 documented as of this encounter (statuses as of 11/15/2022) Medications Medication Sig Dispensed Refills Start Date [...] FOR WHEEZE 18 g 3 10/25/2021 Active ARIPiprazole 5 MG Oral Tablet (Abilify) [...] before bedtime. 60 Tablet 1 10/25/2022 Active documented as of this encounter (statuses as of 11/15/2022) Active Problems Problem Noted Date Food insecurity 04/19/2021 Overview: Per [facility] Protocol MDD (major depressive disorder), recurre nt episode, mild 05/13/2020 FRANCOIS (generalized anxiety disorder) 09/14 Major depressive disorder, recurrent, mo derate 09/14/2018 ADHD (attention deficit hyperactivity di sorder), combined type 09/14/2018 Sleep disturbance 04/16/2012 Allergic rhinitis Intermittent asthma with reliever use up to twice per week documented as of this encounter (statuses as of 11/15/2022) Resolved Problems Problem Noted Date Resolved Date Bipolar 1 disorder 07/24/2017 09/14/2018 Primary insomnia 01/01/2016 09/14/2018 Dizziness 06/23/2015 03/30/2018 Dizziness 07/09/2012 05/12/2015 Ganglion 07/09/2012 03/30/2018 Panic disorder 04/16/2012 09/14/2018 Anxiety 02/23/2021 documented as of this encounter (statuses as of 11/15/2022) Social History Tobacco Use Types Packs/Day Years Used Date Smoking Tobacco: Never Smokeless Tobacco: Never Alcohol Use Standard Drinks/Week Comments Yes 0 (1 standard drink = 0.6 oz pur e alcohol) rare Sex Assigned at Date Recorded Not on file Job Start Date Occupation Industry Not on file Not on file Not on file documented as of this encounter Progress Notes * Sujata Debbie, RONNELL - 11/15/2022 4:33 PM EDT Patient location: HOME. I was not in a hospital or clinic location. After connecting through [employer], patient was verified with two unique identifiers. Patient (or authorized legal field marketing representative) was then informed that this was [...] that I have reviewed their record in [employer] and presented the opportunity for them to ask any questions regarding the visit today. The patient agreed to participate. Provider reviewed elements of Outpatient Services Description including limits of confidentiality, how to contact the department, risks and benefits of treatment and consent for treatment. Start Time: 4:33PM Stop Time: 5:05pm Total direct time: 32 minutes BEHAVIORAL MEDICINE RETURN VISIT PROGRESS NOTE [place] [id number] 11/15/2022 4:33 PM TYPE OF VISIT: Individual DIAGNOSIS: Panic disorder (Primary) Adjustment disorder with depressed mood REASON FOR SESSION: Individual therapy Session #: 5 with this provider SESSION FOCUS: Rapport building, treatment planning,Developing coping skills NOTES: Therapist met with patient to complete an individual session. Pt shared potential employment opportunities. Pt explained his KIKA shared possible work at [employer] and friend offered a painting job. Pt shared disinterest seeking employment at this time. PT explained he wants to pursue disability. Pt identified anxiety about making the phone call to appeal the denial letter he received for disability recently. PT also shared he still expierences anxiety driving. Pt explored challenges adjusting to where he lives such as slow Internet access. PT stated he doesn't feel his Klonopin is helping enough because he has still has a lot of anxiety. Pt feels isolated where he is living and wishes he was closer to resources. Patient and therapist identified the following strengths that will aid in treatment: Honest, medication compliant, sound more motivated due to frustrations. Patient and therapist identified the following needs: "Feeling helpless, and trying to get out of the area he is living". Pt reviewed PHQ and FRANCOIS scoring results, noting pt has not been feeling well. Session sooner thennext scheduled was offered but pt preferred to keep 12/06. Pt encouraged to call if want to be seen sooner. MENTAL STATUS AND BEHAVIORAL OBSERVATIONS: Appearance:casually dressed Behavior:cooperative Speech: normal pitch, rate and volume Affect: Congruent with content of conversation Thought Process: within normal limits and goal directed Thought Content: within normal limits Intellectual Function: within normal limits Sensorium: alert and oriented to person, place, time and situation Cognition: grossly intact Insight/Judgment: fair PROGRESS TOWARDS GOALS: Goal: Improved self-management ofImproved self-management ofsymptoms, coping strategies, and insight. Objective Measures: Patient [...] NEGATIVE C-SSRS administered: Yes, see rooming tool [place] Suicide Severity Rating Scale Results 11/15/2022 16:37 [place] SUICIDE SEVERITY RATING SCALE (C-SSRS) Have [...] risk from last session (see note dated 10/31/22 for further details) Safety Plan: Crisis Planning:What I can do if I ever experience a crisis (much worse symptoms, severe distressor thoughts of self-harm):Art/Music, Talking to loved one or friend or trusted person, Express myfeelings andPaint, play drums People I can call in the event of a crisis:Spouse/partner/significant other:My - Marcus Additional resources I can utilize if the previous steps are ineffective (e.g: ED, hotlines):Suicide and Crisis [facility] - 988 INTERVENTION: ReviewingCrisis Planning, Processing, developing coping skills, encouraged positive thinking. TREATMENT PLAN: Outpatient Adult Therapy Treatment Plan Treatment plan was developed on 09/15/22, treatment will continue to focus on goals below; Treatment update will occur when clinically indicated or by03/13/2023. Patient's goals captured in patient's words: "Be able to breathe and add relief to this constant feeling." Expected family or significant other involvement:Not applicable Type of Service:Individual Patients Strengths and Facilitating Factors to care:Seeking help, Goal Oriented, Has hobbies, Knowledge of medications and Other:Family Treatment Barriers:WIFI due to [facility] Crisis Planning:What I can do if I ever experience a crisis (much worse symptoms, severe distressor thoughts of self-harm):Art/Music, Talking to loved one or friend or trusted person, Express myfeelings andPaint, play drums People I can call in the event of a crisis:Spouse/partner/significant other:My - Marcus Additional resources I can utilize if the previous steps are ineffective (e.g: ED, hotlines):Suicide and Crisis Lifeline - 988 Signature Obtained on Treatment Plan Patient/ Family Received Copy of Treatment Plan Duration of Treatment Frequency of Treatment Treatment plan developed with patient and/or family during telemedicine/telephonic visit. No treatment plan signature page was signed. Will obtain signatures once sessions resume in clinic. Patient has access to Booster 8-11 sessions every other week Patient Identified Needs/Goals Interventions Objective/ Discharge Criteria Problem/Need 1:Anxiety and Depression Cognitive Behavioral Therapy (CBT), which includes psychoeducation, cognitive restructuring, relaxation/diaphragmatic breathing, problem-solving, and behavioral activation FRANCOIS<5 Please choose a method to track patient's improvement based on clinical assessment: FRANCOIS-7 Data Discharge Discussed with patient:Patient continues to need treatment Collaboration of Care:Yes, provider within [facility], information is shared automatically in medical record Is this the patients' initial treatment plan?Yes FOLLOW-UP PLAN: Return: 2 weeks Appointment: 12/01/22 Action Plan: 1. Continue Cognitive Behavioral Therapy 2. Continue medication management with Trey Anne 3. Continue exploring options Treatment plan reviewed with the patient. Patient voices understanding and concurs with plan. PATIENT EDUCATION: Verbal & written Sujata Lewis LCSW Division of Psychiatry & Behavioral Medicine [facility] [phone] National Suicide Prevention Lifeline : 988 Crisis Textline : Text "HOME" to 617119 to connect with a crisis counselor Crisis Numbers by [facility]: [facility] Services - Emergency Services [facility] (8-7-YOU CAN) resolve Crisis Network [facility] . The Open Door - Crisis Intervention [place] [facility] Crisis Help-Line [facility] - Crisis Intervention Services [place] Service Access [employer], [employer]. - Crisis Intervention [place] Choose [address] of Tool Profiling Machine Set Up Operator [place] [facility] [place] Crisis Intervention [place] [facility] - Mental Health Crisis [place] [facility] - Crisis Intervention [place] [facility] - Crisis Intervention Otilio Gr Potter - Crisis Line [place] Alicea Pike - Mental Health Crisis Hotline [place] [facility] - Crisis Services [place] [facility] Crisis Center [place] Service Access Rover. - Crisis Intervention [place] - Mental Health Crisis Intervention Services [facility] MH/ID Program [facility], [place], [place] - Crisis System [facility] Human Services - Crisis Hotline [place] Jermaine Zepeda (2-182-889-HELP) [facility] - Crisis Intervention [place] [facility] - Crisis Intervention Services [place] [facility] - Crisis Services [place] Health - Crisis Center [place] [phone] [facility] - Crisis Hotline [place] (8:30 am-5:00 pm) OR (after 5:00 pm, weekends & holidays) Fouzia [facility] Crisis Intervention Program [place] [facility] Mental Health Crisis Line Neeru Gavin and Jay - [facility] Crisis Mónica & Mar[facility] - Crisis Intervention [place] [facility] - Mental Health Crisis Service [place] [facility] - Crisis Intervention [place] [facility] - Crisis Intervention [facility] [place] - Help Line [facility] MH/ID Program [facility] - Crisis Intervention [facility] - Crisis Intervention [place] [facility] Emergency Services, [facility] - Crisis Intervention [place] [facility] Health - Emergency Services [place] [facility] - Crisis Line Page - DBHIDS - Suicide and Crisis Intervention Hotline [facility] - Crisis/ Emergency Services [place] [facility] - Emergency Contact Line [place] [facility] - Crisis Line Deepak ext. 1 [facility] Human Services [facility] Action - Crisis Intervention Hotline [place] [facility] Crisis Intervention Services documented in this encounter Plan of Treatment Upcoming Encounters Date Type Specialty Care Team Description 12/06/2022 Telemedicine Psychology Sujata Lewis LCSW [address] [place] [address] 01/02/2023 Telemedicine Psychiatry Trey Anne MD [address] [place] [address] Health Maintenance Due Date Last Done Comments [...] Panic disorder- Primary Panic disorder without agoraphobia Adjustment disorder with depressed mood documented in this encounter Care Teams Screw Machine Operator Single Spindle Relationship Specialty Start Date End Date Azul Stephens PA-C [address] [place] [address] PCP - General Physician Integration Technician 11/05/20 documented as of this encounter
--- OUTSIDE RECORDS SUMMARY | 2023-02-28 07:04 | External Medical Summary | Summary of Care ---
Author Name Unknown Organization [facility] Address [address] [place] [address] Phone [phone] Care Team Providers Care Engraver Wood Name Role Phone Azul Stephens PA-C Primary Care Provider + [phone] Reason for Visit * Reason Comments Anxiety Follow Up * - Authorized Specialty Diagnoses / Procedures Referred By Anne carrera Referred To Contact Referral ID Status Reason Start Date Expiration Date V isits Requested Visits Authorized [id number] Authorized 07/09/2022 07/08/2023 999 [id number] Encounter Details Date Type Department Care Team Description 10/31/2022 [facility] [address], [place] [id number] Sujata Lewis LCSW [address], [place] [id number] Panic disorder* Allergies Active Allergy Reactions Severity Noted Date Comments Amitriptyline Rash Medium 11/12/2018 documented as of this encounter (statuses as of 10/31/2022) Medications Medication Sig Dispensed Refills Start Date [...] as of this encounter (statuses as of 10/31/2022) Active Problems Problem Noted Date Food insecurity 04/19/2021 Overview: [facility] Protocol MDD (major depressive disorder), recurre nt episode, mild 05/13/2020 FRANCOIS (generalized anxiety disorder) 09/14 Major depressive disorder, recurrent, mo derate 09/14/2018 ADHD (attention deficit hyperactivity di sorder), combined type 09/14/2018 Sleep disturbance 04/16/2012 Allergic rhinitis Intermittent asthma with reliever use up to twice per week documented as of this encounter (statuses as of 10/31/2022) Resolved Problems Problem Noted Date Resolved Date Bipolar 1 disorder 07/24/2017 09/14/2018 Primary insomnia 01/01/2016 09/14/2018 Dizziness 06/23/2015 03/30/2018 Dizziness 07/09/2012 05/12/2015 Ganglion 07/09/2012 03/30/2018 Panic disorder 04/16/2012 09/14/2018 Anxiety 02/23/2021 documented as of this encounter (statuses as of 10/31/2022) Social History Tobacco Use Types Packs/Day Years [...] Progress Notes * Sujata Lewis LCSW - 10/31/2022 4:38 PM EDT Patient location: HOME. I was not in a hospital or clinic location. After connecting through [employer], patient was verified with two unique identifiers. Patient (or authorized legal truck sales representative) was then informed that this [...] that I have reviewed their record in linkedFA and presented the opportunity for them to ask any questions regarding the visit today. The patient agreed to participate. Provider reviewed elements of Outpatient Services Description including limits of confidentiality, how to contact the department, risks and benefits of treatment and consent for treatment. Start Time: 4:39PM Stop Time: 5:15pm Total direct time: 37 minutes BEHAVIORAL MEDICINE RETURN VISIT PROGRESS NOTE [place] [id number] 10/31/2022 4:38 PM TYPE OF VISIT: Individual DIAGNOSIS: Panic disorder (Primary) REASON FOR SESSION: Individual therapy Session #: 4 with this provider SESSION FOCUS: Rapport building, treatment planning,Developing coping skills NOTES: Therapist met with patient to complete an individual session. Pt expressed experience with anxiety.Pt explored the idea of feeling stuck. Pt and MANAGER SCIENTIFIC discussed exposure therapy, resources, supports and time frame for attaining step by step to desensitize feelings of anxiety provoking situations. Patient and therapist identified the following strengths that will aid in treatment: Openness, honesty, medication compliant. Patient and therapist identified the following needs: Not driving, doesn't have reliable car MENTAL STATUS AND BEHAVIORAL OBSERVATIONS: Appearance:casually dressed Behavior:cooperative Speech: normal pitch, rate and volume Affect: Congruent with content of conversation Thought Process: within normal limits and goal directed Thought Content: within normal limits Intellectual Function: within normal limits Sensorium: alert and oriented to person, place, time and situation Cognition: grossly intact Insight/Judgment: fair PROGRESS TOWARDS GOALS: Goal: Improved self-management of Improved self-management ofsymptoms, coping strategies, and insight. Objective Measures: Patient Health Questionnaire 9 & Generalized Anxiety Disorder 7 Over the last 2 weeks or more, how often have you been bothered by any of the following problems? 0-1-2-3 1. Little interest or pleasure in doing things 0 2. Feeling down, depressed, or hopeless 0 3. Trouble falling asleep, staying asleep, or sleeping too much 2 4. Feeling tired or having little energy [...] that you or others could have noticed 1 9. Thoughts that you would be better off or of hurting yourself in some way 0 PHQ-9 TOTAL SCORE 13 1. Feeling nervous, anxious, or on edge 3 2. Been unable to control or stop worrying 3 3. Worried too much about different things 3 4. Trouble relaxing 3 5. Been so restless that it is hard to sit still 3 6. Becoming easily annoyed or irritable 3 7. Feeling afraid as if something awful might happen 3 FRANCOIS-7 TOTAL SCORE 21 COMPLETED ON 10/19/22 Patient Health Questionnaire (PHQ-9): 13 (0-4 Min; Mild -5-9; Moderate 10-14; Mod Severe 15-19; Severe 20+) PHQ-9, item 9 = 0 Generalized Anxiety Disorder (FRANCOIS-7): 21 (0-4 Min; Mild -5-9; Moderate 10-14; Severe 15+) Suicide/Homicidal Assessment Validated Screening and Assessment Measures PHQ-9, item 9: NEGATIVE C-SSRS administered: Yes, see rooming tool [place] Suicide Severity Rating Scale Results 10/31/2022 17:13 [place] SUICIDE SEVERITY RATING SCALE (C-SSRS) Have [...] risk from last session (see note dated 10/19/22 for further details) Safety Plan: Crisis Planning:What [...] are ineffective (e.g: ED, hotlines):Suicide and Crisis [facility] - 988 INTERVENTION: Reviewing Crisis Planning, Processing, [...] Treatment Barriers:WIFI due to moving to the [facility] Crisis Planning:What I can do if [...] resume in clinic. Patient has access to [facility] 8-11 sessions every other week Patient Identified Needs/Goals Interventions Objective/ Discharge Criteria Problem/Need 1:Anxiety and Depression Cognitive Behavioral Therapy (CBT), which includes psychoeducation, cognitive restructuring, relaxation/diaphragmatic breathing, problem-solving, and behavioral activation FRANCOIS<5 Please choose a method to track patient's improvement based on clinical assessment: FRANCOIS-7 Data Discharge Discussed with patient:Patient continues to need treatment Collaboration of Care:Yes, provider within [facility], information is shared automatically in medical record Is this the patients' initial treatment plan?Yes FOLLOW-UP PLAN: Return: 2 weeks Appointment: 11/15/22 Action Plan: 1. Continue Cognitive Behavioral Therapy 2. Continue medication management with Trey Anne 3. Continue addressing anxiety related to driving Treatment plan reviewed with the patient. Patient voices understanding and concurs with plan. PATIENT EDUCATION: Verbal & written Sujata Lewis LCSW Division of Psychiatry & Behavioral Medicine [facility] [phone] Main Office # for Behavioral Health: [phone] National Suicide Prevention Lifeline : 988 Crisis Textline : Text "HOME" to 887793 to connect with a crisis counselor Crisis Numbers by [facility]: [place] [facility] Services - Emergency Services [facility] (-7-YOU CAN) resolve Crisis Network [facility] . The Open Door - Crisis Intervention [facility] Crisis Help-Line [facility] - Crisis Intervention Services [facility] Service Access ProcessUnity, Feathr. - Crisis Intervention [place] Choose option 1 - [facility] of Cold Meat Cook Gil[place] & [place] Crisis Intervention [place] [facility] - Mental Health Crisis Charlie [facility] - Crisis Intervention [address] [facility] - Crisis Intervention Otilio Gr Potter - Crisis Line [place] Alice[place] - Mental Health Crisis Hotline [place] [facility] - Crisis Services [place] [facility] Crisis Center [place] Service Access ProcessUnity, Feathr. - Crisis Intervention [place] - Mental Health Crisis Intervention Services [place] [facility] MH/ID Program [place], [place], Josel[place], [place] - Crisis System [place] [facility] - Crisis Hotline [place] (7-090-170-BRAS) [facility] - Crisis Intervention [place] [facility] - Crisis Intervention [facility] - Crisis Services Deven [facility] Health - Crisis Center Noa [phone] [facility] - Crisis Hotline [place] (8:30 am-5:00 pm) OR (after 5:00 pm, weekends & holidays) Fouzia On [facility] Crisis Intervention Program Brook[place] [facility] - Mental Health Crisis Line Neeru Gavin and Jay - [place] Crisis Mónica & Marilyn [facility] - Crisis Intervention [place] [facility] - Mental Health Crisis Service [place] [facility] - Crisis Intervention [place] [facility] - Crisis Intervention [place] & [place] [facility] - Help Line [facility] MH/ID Program [facility] - Crisis Intervention [place] [facility] - Crisis Intervention Eunice [facility] Emergency [facility], [facility] - Crisis Intervention Boody [facility] Health - Emergency Services [place] [facility] - Crisis Line [place] - DBHIDS - Suicide and Crisis Intervention Hotline [facility] - Crisis/ Emergency Services [facility] - Emergency Contact Line [place] [facility] - Crisis Line [place] ext. 1 [facility] Human Services [facility] Action - Crisis Intervention Hotline [place] [facility] Crisis Intervention Services documented in this encounter Plan of Treatment Upcoming Encounters Date Type Specialty Care Team Description 11/07/2022 Telemedicine Psychiatry Trey Anne MD [address] [place] [facility] [place] [address] 11/15/2022 Telemedicine Psychology Sujata Lewis LCSW [address] [place] [address] 12/06/2022 Telemedicine Psychology Sujata Lewis, MANAGER SCIENTIFIC [address] [place] [address] Health Maintenance Due Date Last Done Comments [...] Panic disorder- Primary Panic disorder without agoraphobia documented in this encounter Care Teams Engraver Wood Relationship Specialty Start Date End Date Azul Stephens PA-C [address] [place] [address] PCP - General Physician Account Manager [id number] 11/05/20 documented as of this encounter
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
--- OUTSIDE RECORDS SUMMARY | 2023-02-28 07:04 | External Medical Summary | Summary of Care ---
Author Name Unknown Organization [facility] Address [address] [place] [address] Phone [phone] Care Team Providers Care Drapery Cutter Machine Name Role Phone Oksana Liu MD Primary Care Provider [phone] Reason for Visit * Reason Onset Date Comments FYI 12/15/2022 Encounter Details Date Type Department Care Team Description 12/15/2022 Telephone Psychiatry, [facility] [address] [place] [address] Trey Anne MD [address] [place] [address] FY Allergies Active Allergy Reactions Severity Noted Date [...] Active Flovent HFA 110 MCG/ACT Inhalation Aerosol (fluticasone)Indic ations:Mild intermittent asthma with exacerbation INHALE 2 PUFFS BY MOUTH TWICE A DAY 12 g 5 11/16/2020 3 Discontinued documented as of this encounter (statuses as of 12/15/2022) Active Problems Problem Noted Date Food insecurity 04/19/2021 Overview: [facility] Protocol MDD (major depressive disorder), recurre [...] encounter Miscellaneous Notes * Telephone Encounter - Oksana Peraza - 12/15/2022 8:30 AM EDT Pt dropped off SS disability paperwork from the lawer Placed the FP Mailbox in mailroom documented in this encounter Plan of Treatment Upcoming Encounters Date Type Specialty Care Team Description 12/20/2022 Telemedicine Psychology Sujata Lewis LCSW [address] [place] [address] 01/02/2023 Telemedicine Psychiatry Trey Anne MD [address], [place] [phone] 12/18/2023 Office Visit Family Medicine Oksana Liu MD [address] [place] [id number] Health Maintenance Due Date Last Done Comments [...] filedocumented as of this encounter Care Teams Drapery Cutter Machine Relationship Specialty Start Date End Date Oksana Liu MD [address] [place] [id number] PCP - General Family Medicine 12/15/22 documented as of this encounter
--- OUTSIDE RECORDS SUMMARY | 2023-02-28 07:04 | External Medical Summary | Summary of Care ---
Author Name Unknown Organization [facility] Address [address] [place] [address] Phone [phone] Care Team Providers Care Fiberglass Roller Name Role Phone Azul Stephens PA-C Primary Care Provider [phone] Reason for Visit * Reason Comments Anxiety Follow Up * - Authorized Specialty Diagnoses / Procedures Referred By Anne t Referred To Contact Referral ID Status Reason Start Date Expiration Date V isits Requested Visits Authorized [id number] Authorized 07/09/2022 07/08/2023 [id number] Encounter Details Date Type Department Care Team Description 10/19/2022 [facility] [address], [place] [id number] Sujata Lewis LCSW [address], [place] [phone] FRANCOIS (generalized anxiety disorder)*; Major depressive disorder, recurrent episode, mild (HCC) Allergies Active Allergy Reactions Severity Noted Date Comments Amitriptyline Rash Medium 11/12/2018 documented as of this encounter (statuses as of 10/19/2022) Medications Medication Sig Dispensed Refills Start Date [...] the morning.. 180 Tablet 1 04/26/2022 Active clonazePAM 0.5 MG Oral Tablet (KlonoPIN) Take 1 Tablet by mouth in the morning and 1 Tablet before bedtime. 30 Tablet 1 09/21/2022 Active ARIPiprazole 5 MG Oral Tablet (Abilify) Take 1.5 Tablets by mouth in the morning. 45 Tablet 2 10/03/2022 Active documented as of this encounter (statuses as of 10/19/2022) Active Problems Problem Noted Date Food insecurity 04/19/2021 Overview: Per [facility] Protocol MDD (major depressive disorder), recurre nt episode, mild 05/13/2020 FRANCOIS (generalized anxiety disorder) 09/14 Major depressive disorder, recurrent, mo derate 09/14/2018 ADHD (attention deficit hyperactivity di sorder), combined type 09/14/2018 Sleep disturbance 04/16/2012 Allergic rhinitis Intermittent asthma with reliever use up to twice per week documented as of this encounter (statuses as of 10/19/2022) Resolved Problems Problem Noted Date Resolved Date Bipolar 1 disorder 07/24/2017 09/14/2018 Primary insomnia 01/01/2016 09/14/2018 Dizziness 06/23/2015 03/30/2018 Dizziness 07/09/2012 05/12/2015 Ganglion 07/09/2012 03/30/2018 Panic disorder 04/16/2012 09/14/2018 Anxiety 02/23/2021 documented as of this encounter (statuses as of 10/19/2022) Social History Tobacco Use Types Packs/Day Years [...] Progress Notes * Sujata Lewis LCSW - 10/19/2022 4:34 PM EDT Patient location: HOME. I was not in a hospital or clinic location. After connecting through [employer], patient was verified with two unique identifiers. Patient (or authorized legal care support representative) was then informed that this was [...] that I have reviewed their record in [employer] and presented the opportunity for them to ask any questions regarding the visit today. The patient agreed to participate. Provider reviewed elements of Outpatient Services Description including limits of confidentiality, how to contact the department, risks and benefits of treatment and consent for treatment. Start Time: 4:35 Stop Time: 5:05pm Total direct time: 30 minutes BEHAVIORAL MEDICINE RETURN VISIT PROGRESS NOTE [place] [address] 10/19/2022 4:34 PM TYPE OF VISIT: Individual DIAGNOSIS: FRANCOIS (generalized anxiety disorder) (Primary) Major depressive disorder, recurrent episode, mild (HCC) REASON FOR SESSION: Individual therapy Session #: 3 with this provider SESSION FOCUS: Rapport building, treatment planning, Developing coping skills, NOTES: Therapist met with patient to complete an individual session. Pt reported feeling better. Pt explained the Klonopin is helping and he is taking it once in the morning and once at night. Pt discussed previous employment and paranoia of others talking about him. Pt added the commute also causes him worry. Pt shared how he felt he was being talked about at work. Pt explored possible paranoia symptoms. Patient and therapist identified the following strengths that will aid in treatment: Redirecting negative thinking to positive reinforcement. Hasn't smoked marijuana, "decided not to, to save moneyand I wanted to see if the medication was going to help on it's own". in about 2 weeks. Patient and therapist identified the following needs: "I feel like a bum for not working and feeling bored which is bothering me". MENTAL STATUS AND BEHAVIORAL OBSERVATIONS: Appearance: groomed [...] TOTAL SCORE 21 Patient Health Questionnaire (PHQ-9): 13 (0-4 Min; Mild -5-9; Moderate 10-14; Mod Severe 15-19; Severe 20+) PHQ-9, item 9 = 0 Generalized Anxiety Disorder (FRANCOIS-7): 21 (0-4 Min; Mild -5-9; Moderate 10-14; Severe 15+) Suicide/Homicidal Assessment Validated Screening and Assessment Measures PHQ-9, item 9: NEGATIVE C-SSRS administered: Yes, see rooming tool Lewis Suicide Severity Rating Scale Results 10/19/2022 16:50 [place] SUICIDE SEVERITY RATING SCALE (C-SSRS) Have [...] of Risk No Risk Identified Protective Factors Help-Seeking Behaviors;Social Support/Family;Identifies reasons for living Risk Factors History of Depression;Anxiety;Family history of suicide attempts/completion - No change in risk from last session (see note dated 09/26/22 for further details) Safety Plan: Crisis Planning:What [...] are ineffective (e.g: ED, hotlines):Suicide and Crisis [facility] INTERVENTION: Reviewing Crisis Planning, Processing, [...] Treatment Barriers:WIFI due to [facility] Crisis Planning:What I can do if I [...] resume in clinic. Patient has access to [facility]-11 sessions every other week Patient Identified Needs/Goals Interventions Objective/ Discharge Criteria Problem/Need 1:Anxiety and Depression Cognitive Behavioral Therapy (CBT), which includes psychoeducation, cognitive restructuring, relaxation/diaphragmatic breathing, problem-solving, and behavioral activation FRANCOIS<5 Please choose a method to track patient's improvement based on clinical assessment: FRANCOIS-7 Data Discharge Discussed with patient:Patient continues to need treatment Collaboration of Care:Yes, [facility], information is shared automatically in medical record Is this the patients' initial treatment plan?Yes FOLLOW-UP PLAN: Return: 2 weeks Appointment: 10/31/22 Action Plan: 1. Continue Cognitive Behavioral Therapy 2. Continue medication management with Trey Anne 3. Continue maintaining symptoms Treatment plan reviewed with the patient. Patient voices understanding and concurs with plan. PATIENT EDUCATION: Verbal & written Sujata Lewis LCSW Division of Psychiatry & Behavioral Medicine [facility] [phone] National Suicide Prevention Lifeline : 988 Crisis Textline : Text "HOME" to 511807 to connect with a crisis counselor Crisis Numbers by [facility]: [place] [facility] - Emergency Services Abdirahman (3-287-0-YOU CAN) resolve Crisis Network [place] & [place] . [facility] - Crisis Intervention [place] [facility] Crisis Help-Line [place] [facility] - Crisis Intervention Services [facility] Service Access [employer]. - Crisis Intervention [place] Choose option 1 - [facility] [employer] Planner [place] & [place] Crisis Intervention [place] [facility] - Mental Health Crisis [place] - Crisis Intervention [place] [facility] - Crisis Intervention Otilio Gr Potter - Crisis Line [place] - Mental Health Crisis Hotline [place] [facility] - Crisis Services [place] [facility] Crisis Center [place] Service Access [employer]. - Crisis Intervention [place] - Mental Health Crisis Intervention Services [place] [facility] MH/ID Program [place], [place], [place], [place] - Crisis System [place] [facility] Human Services - Crisis Hotline [place] (5-591-256-HELP) [facility] - Crisis Intervention [facility] - Crisis Intervention Services [place] [facility] - Crisis Services Deven [facility] Health - Crisis Center [place] [facility] - Crisis Hotline [place] (8:30 am-5:00 pm) OR (after 5:00 pm, weekends & holidays) Fouzia [facility] Crisis Intervention Program [place] [facility] Mental Health Crisis Line RomaineDieudonnea and Jay [facility] Crisis Món[place] & Marilyn [facility] - Crisis Intervention [place] [facility] Mental Health Crisis Service [place] [facility] - Crisis Intervention [facility] - Crisis Intervention [place] [facility] - Help Line [facility] MH/ID Program [facility] - Crisis Intervention [facility] - Crisis Intervention [place] [facility] Emergency Services, [facility] - Crisis Intervention [place] [facility] Behavioral Health - Emergency Services Mcd[place] [facility] - Crisis Line [place] - DBHIDS - Suicide and Crisis Intervention Hotline [facility] - Crisis/ Emergency Services [place] [facility] - Emergency Contact Line [place] [facility] - Crisis Line Deepak ext. 1 [facility] Human Services [facility] Action - Crisis Intervention Hotline [place] [facility] Crisis Intervention Services documented in this encounter Plan of Treatment Upcoming Encounters Date Type Specialty Care Team Description 10/24/2022 Telemedicine Psychology Sujata Lewis LCSW [address], [place] [phone] 10/31/2022 Telemedicine Psychology Sujata Lewis LCSW [address], [place] [id number] 11/07/2022 Telemedicine Psychiatry Tery Anne MD [address] [place] [address] 11/15/2022 Telemedicine Psychology Sujata Lewis LCSW [address] [place] [address] Health Maintenance Due Date Last [...] (generalized anxiety disorder)- Primary Generalized anxiety disorder Major depressive disorder, recurrent episode, mild (HCC) Major depressive disorder, recurrent episode, mild documented in this encounter Care Teams Fiberglass Roller Relationship Specialty Start Date End Date Azul Stephens PA-C [address] [facility] [place] [address] PCP - General Physician Finished Cloth Checker 11/05/20 documented as of this encounter
--- OUTSIDE RECORDS SUMMARY | 2023-02-28 07:05 | External Medical Summary | Summary of Care ---
Author Name Unknown Organization [facility] Address [address] [place] [address] Phone [phone] Care Team Providers Care Marketing Planning Manager Name Role Phone Azul Stephens PA-C Primary Care Provider + [phone] Reason for Visit * Reason Comments Anxiety Panic Attack * - Authorized Specialty Diagnoses / Procedures Referred By Contmusa t Referred To Contact Referral ID Status Reason Start Date Expiration Date V isits Requested Visits Authorized [id number] Authorized 07/09/2022 07/08/2023 [id number] Encounter Details Date Type Department Care Team Description 09/15/2022 [facility] [address], [place] [id number] Sujata Lewis LCSW [address], [place] [id number] FRANCOIS (generalized anxiety disorder)*; Major depressive disorder, recurrent episode, mild (HCC) Allergies Active Allergy Reactions Severity Noted Date Comments Amitriptyline Rash Medium 11/12/2018 documented as of this encounter (statuses as of 09/15/2022) Medications Medication Sig Dispensed Refills Start Date [...] the morning. 45 Tablet 0 09/02/2022 Active LORazepam 0.5 MG Oral Tablet (Ativan)Indications:P anic,FRANCOIS (generalized anxiety disorder) Take 1 Tablet by mouth 2 times a day as needed for Anxiety. 60 Tablet 0 09/13/2022 Active documented as of this encounter (statuses as of 09/15/2022) Active Problems Problem Noted Date Food insecurity 04/19/2021 Overview: Per [facility] Protocol MDD (major depressive disorder), recurre nt episode, mild 05/13/2020 FRANCOIS (generalized anxiety disorder) 09/14 Major depressive disorder, recurrent, mo derate 09/14/2018 ADHD (attention deficit hyperactivity di sorder), combined type 09/14/2018 Sleep disturbance 04/16/2012 Allergic rhinitis Intermittent asthma with reliever use up to twice per week documented as of this encounter (statuses as of 09/15/2022) Resolved Problems Problem Noted Date Resolved Date Bipolar 1 disorder 07/24/2017 09/14/2018 Primary insomnia 01/01/2016 09/14/2018 Dizziness 06/23/2015 03/30/2018 Dizziness 07/09/2012 05/12/2015 Ganglion 07/09/2012 03/30/2018 Panic disorder 04/16/2012 09/14/2018 Anxiety 02/23/2021 documented as of this encounter (statuses as of 09/15/2022) Social History Tobacco Use Types Packs/Day Years [...] Progress Notes * Sujata Lewis LCSW - 09/15/2022 9:54 AM EDT Patient location: HOME. I was not in a hospital or clinic location. After connecting through [employer], patient was verified with two unique identifiers. Patient (or authorized legal signs and displays sales representative) was then informed that this [...] that I have reviewed their record in [facility] and presented the opportunity for them to ask any questions regarding the visit today. The patient agreed to participate. Provider reviewed elements of Outpatient Services Description including limits of confidentiality, how to contact the department, risks and benefits of treatment and consent for treatment. Start Time: 9:58AM Stop Time: 10:58AM Total direct time: 60 Minutes BEHAVIORAL MEDICINE NEW VISIT PROGRESS NOTE [place] [id number] 09/15/2022 9:54 AM TYPE OF VISIT: Individual DIAGNOSIS: FRANCOIS (generalized anxiety disorder) (Primary) Major depressive disorder, recurrent episode, mild (HCC) REASON FOR SESSION: Individual therapy Session #: 1 with this provider SESSION FOCUS: Goal Setting, Treatment Planning, Rapport Building, Crisis Planning, symptom management, medication management, development of coping skills. NOTES: Therapist met with patient to complete an individual session. Therapist and patient discussed pt's treatment plan and treatment goals. Pt wants to feel better, "Im always on edge". "Not having so much anxiety all the time". "I can't keep a job because of the panic attacks". Managing symptoms on a regular basis. Patient and therapist identified the following strengths that will aid in treatment: Open minded to medication and tried several. Pt identified the ones he felt were not helpful. "fallon felt like I and living in my subconcious". "lI try to help and please everybody else". Trying to be better for his family. Patient and therapist identified the following needs: "I say "we" need to do this- talking to myself". I noticed it about a year now, I don't know why I do that, or ill say "you" meaning me". "I can't concentrate or think straight; my mind seems like a train that doesn't stop running". "Over thinking". "Can't remember the last time felt the weight was off his shoulders". Worked at [employer], pt "Was following the rules with COVID and they said he was taking to much time off". Pt "laid off and money has been an issue". Pt explained circumstances- power bill connected to neighbors house; PT having trouble paying bills. "Moving out to 's father's". Pt has family hx of depression; Pt was 4 when parents jyhptspe-Jecqoj-Wxbzv Driver/Alcoholic; mom lives close/employed; "Most my family members are all gone". Pt has 2 older brothers/ both alcoholics. They live together and middle brother has 2 kids/gf. Oldest brother / had 2 kids- both - 1 in the womb and after . "I didn't ask to much" "My thinks I have Bipolar Depression-"My attitude changes, like I am a new person everyday". "I know what started this anxiety 10+ years ago- I took Shrums". Patient and therapist noted the following protective factors: Coping mechanism- "I have tried breathing techniques, and sleep hypnosis". 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 Have a 2.5 y/o son named Ananth. Sees medication provider, regularly, Medication compliant, abstinent from alcohol. MENTAL STATUS AND BEHAVIORAL OBSERVATIONS: Appearance: within normal limits Behavior: within normal limits Speech: normal pitch, rate and volume Affect: Congruent with content of conversation Thought Process: flight of ideas Thought Content: within normal limits Intellectual Function: within normal limits Sensorium: alert and oriented to person, place, time and situation Cognition: grossly intact Insight/Judgment: good GOALS SETTING: Goal: Improved self-management of symptoms related to mental health and developing coping skills. Patient Health Questionnaire 9 & Generalized Anxiety Disorder 7 Over the last 2 weeks or more, how often have you been bothered by any of the following problems? 0-1-2-3 1. Little interest or pleasure in doing things 3 2. Feeling down, depressed, or hopeless 1 3. Trouble falling asleep, staying asleep, or [...] in some way 0 PHQ-9 TOTAL SCORE 20 1. Feeling nervous, anxious, or on edge 3 2. Been unable to control or stop worrying 3 3. Worried too much about different things 3 4. Trouble relaxing 3 5. Been so restless that it is hard to sit still 3 6. Becoming easily annoyed or irritable 3 7. Feeling afraid as if something awful might happen 3 FRNACOIS-7 TOTAL SCORE 21 Patient Health Questionnaire (PHQ-9): 20 (0-4 Min; Mild -5-9; Moderate 10-14; Mod Severe 15-19; Severe 20+) PHQ-9, item 9 = 0 Generalized Anxiety Disorder (FRANCOIS-7): 21 (0-4 Min; Mild -5-9; Moderate 10-14; Severe 15+) Suicide/Homicidal Assessment Validated Screening and Assessment Measures PHQ-9, item 9: NEGATIVE C-SSRS administered: Yes, see below [place] Suicide Severity Rating Scale Results 09/15/2022 09:54 [place] SUICIDE SEVERITY RATING SCALE (C-SSRS) Have [...] Risk No Risk Identified Protective Factors Help-Seeking Behaviors;Future Plans;Social Support/Family Risk Factors History of Depression;Anxiety;Family history of suicide attempts/completion Risk Factors: - Current SI/HI (including frequency and duration): NO - Current plan: NO - Current intent: NO - Suicide attempt or self-harm in the last 3 months: NO - Access to means (if firearms and/or medications are present, complete lethal means reduction): NO - Lethal means access reduction steps taken: NO - History of suicide attempts/self harm: NO - Recent stressors/losses (job loss, medical diagnosis, relationship loss): family members/ recent deaths in a short time Job Loss, Moving - Other fixed/chronic risk factors: Father/2 brothers hx of JONAH; Pt - Other modifiable risk factors: Changing living conditions/environment Protective factors: -Sense of responsibility to children/pets/others: Yes -Social connectedness: Yes -Willingness to engage in mental health services: Yes -Future-oriented thinking/planning: Yes -Coping/social/emotion regulation/self-soothing skills present: Yes -Has cultural, moral or sabianism beliefs that discourage suicide: Unknown at this time SAFETY PLAN: Crisis Planning: What I can do if I ever experience a crisis (much worse symptoms, severe distress or thoughts of self-harm): Art/Music, Talking to loved one or friend or trusted person, Express my feelings and Surrency, play drums People I can call in the event of a crisis: Spouse/partner/significant other: My - [facility] Additional resources I can utilize if the previous steps are ineffective (e.g: ED, hotlines): Suicide and Crisis [place] [id number] INTERVENTION: Goal Setting, Treatment Planning, Crisis Planning, Processing, reviewing hx medication management, developing coping skills. TREATMENT PLAN: Outpatient Adult Therapy Treatment Plan [...] Barriers: WIFI due to moving to the [facility] Crisis Planning: What I can do if I ever experience a crisis (much worse symptoms, severe distress or thoughts of self-harm): Art/Music, Talking to loved one or friend or trusted person, Express my feelings and Surrency, play drums People I can call in [...] resume in clinic. Patient has access to [employer] 8-11 sessions every other week Patient Identified Needs/Goals Interventions Objective/ Discharge Criteria Problem/Need 1: Anxiety and Depression Cognitive Behavioral Therapy (CBT), which includes psychoeducation, cognitive restructuring, relaxation/diaphragmatic breathing, problem-solving, and behavioralactivation FRANCOIS<5 Please choose a method to track patient's improvement based on clinical assessment: FRANCOIS-7 Data Discharge Discussed with patient: Patient continues to need treatment Collaboration of Care: Yes, provider within [facility], information is shared automatically in medical record Is this the patients' initial treatment plan? Yes FOLLOW-UP PLAN: Return: 2 weeks Appointment: 09/26/22 Action Plan: 1. Continue Cognitive Behavioral Therapy 2. Continue medication management with MD Trey Anne 3. Develop healthy coping skills Treatment plan reviewed with the patient. Patient voices understanding and concurs with plan. PATIENT EDUCATION: Verbal & written Sujata Lewis LCSW Division of Psychiatry & Behavioral Medicine [facility] [phone] National Suicide Prevention Lifeline : 988 Crisis Textline : Text "HOME" to 247256 to connect with a crisis counselor Crisis Numbers by County: [place] [facility] - Emergency Services Abdirahman (8352--YOU CAN) resolve Crisis Network [place] & [place] . [facility] - Crisis Intervention [facility] Crisis Help-Line [place] & [place] [facility] - Crisis Intervention Services [facility] Service Access [employer] - Crisis Intervention [place] Choose [address] of Renal Nurse [place] & [place] Crisis Intervention [place] [facility] - Mental Health Crisis [place] [facility] - Crisis Intervention [place] [facility] - Crisis Intervention Otilio Gr Potter - Crisis Line [place] Alice[place] - Mental Health Crisis Hotline [place] [facility] - Crisis Services [place] Crisis Center [place] Service Access [employer] - Crisis Intervention [place] - Mental Health Crisis Intervention Services [place] [facility] MH/ID Program [place], [place], Yee, Richard - Crisis System [place] [facility] Human Services - Crisis Hotline Martin & [place] (0-206-411-HELP) [facility] - Crisis Intervention Lola Howell[facility] Point [facility] - Crisis Intervention Services [place] [facility] - Crisis Services [place] [facility] Behavioral Health - Crisis Center Noa [phone] [facility] - Crisis Hotline [place] (8:30 am-5:00 pm) OR (after 5:00 pm, weekends & holidays) [place] [facility] Crisis Intervention Program [place] [facility] - Mental Health Crisis Line Romaine, Neeru and Jay [facility] Crisis [place] & Marilyn [facility] - Crisis Intervention [facility] - Mental Health Crisis Service [place] [facility] - Crisis Intervention Ever[facility] - Crisis Intervention [place] & [place] [facility] - Help Line [facility] MH/ID Program [facility] - Crisis Intervention Sargeant [facility] - Crisis Intervention [place] [facility], [facility] - Crisis Intervention [place] [facility] Behavioral Health - Emergency Services [place] [facility] - Crisis Line [place] - DBHIDS - Suicide and Crisis Intervention [facility] - Crisis/ Emergency Services [place] [facility] - Emergency Contact Line [place] [facility] - Crisis Line Deepak ext. 1 [facility] Human Services [facility] Action - Crisis Intervention Hotline [facility] Crisis Intervention Services documented in this encounter Plan of Treatment Upcoming Encounters Date Type Specialty Care Team Description 09/21/2022 Telemedicine Psychiatry Trey Anne MD [address] [place] [address] 09/26/2022 Telemedicine Psychology Sujata Lewis LCSW [address] [place] [address] Health Maintenance Due Date Last [...] mild documented in this encounter Care Teams Marketing Planning Manager Relationship Specialty Start Date End Date Azul Stephens PA-C [address] [place] [address] PCP - General Physician Commercial Insurance Underwriter 11/05/20 documented as of this encounter
--- OUTSIDE RECORDS SUMMARY | 2023-02-28 07:05 | External Medical Summary | Summary of Care ---
Author Name Unknown Organization [facility] Address [address] [place] [address] Phone [phone] Care Team Providers Care Acid Recovery Operator Name Role Phone Azul Stephens PA-C Primary Care Provider [phone] Reason for Visit * Reason Onset Date Comments Medication Refill 09/13/2022 Encounter Details Date Type Department Care Team Description 09/13/2022 Refill Psychiatry, [facility] [address] [place] [address] Trey Anne MD [address] [place] [address] Panic; FRANCOIS (generalized anxiety disorder) Allergies Active Allergy Reactions Severity Noted Date Comments Amitriptyline Rash Medium 11/12/2018 documented as of this encounter (statuses as of 09/13/2022) Medications Medication Sig Dispensed Refills Start Date [...] 09/02/2022 Active LORazepam 0.5 MG Oral Tablet (Ativan)Indication s:Panic,FRANCOIS (generalized anxiety disorder) Take 1 Tablet by mouth 2 times a day as needed for Anxiety. 60 Tablet 0 09/13/2022 Active LORazepam 0.5 MG Oral Tablet (Ativan)Indication s:Panic,FRANCOIS (generalized anxiety disorder) Take 1 Tablet by mouth 2 times a day as needed for Anxiety. 60 Tablet 0 08/05/2022 09/13/2022 Discontinued (Refill) documented as of this encounter (statuses as of 09/13/2022) Active Problems Problem Noted Date Food insecurity 04/19/2021 Overview: Per [facility] Protocol MDD (major depressive disorder), recurre nt episode, mild 05/13/2020 FRANCOIS (generalized anxiety disorder) 09/14 Major depressive disorder, recurrent, mo derate 09/14/2018 ADHD (attention deficit hyperactivity di sorder), combined type 09/14/2018 Sleep disturbance 04/16/2012 Allergic rhinitis Intermittent asthma with reliever use up to twice per week documented as of this encounter (statuses as of 09/13/2022) Resolved Problems Problem Noted Date Resolved Date Bipolar 1 disorder 07/24/2017 09/14/2018 Primary insomnia 01/01/2016 09/14/2018 Dizziness 06/23/2015 03/30/2018 Dizziness 07/09/2012 05/12/2015 Ganglion 07/09/2012 03/30/2018 Panic disorder 04/16/2012 09/14/2018 Anxiety 02/23/2021 documented as of this encounter (statuses as of 09/13/2022) Social History Tobacco Use Types Packs/Day Years [...] encounter Miscellaneous Notes * Telephone Encounter - JOHN Bailey - 09/13/2022 12:20 PM EDT Medication requested sent to pt's pharmacy. JOHN Bar * Telephone Encounter - Kim Dias DO - 09/13/2022 11:42 AM EDT Not a patient of [facility]. * Telephone Encounter - Kim Dias DO - 09/13/2022 11:42 AM EDT Refused Prescriptions: Disp Refills LORazepam 0.5 MG Oral Tablet (Ativan) 60 Tab*0 Sig: Take 1 Tablet by mouth 2 times a day as needed for Anxiety. Refused By: KIM DIAS Reason for Refusal: Managed by another physician * Telephone Encounter - Julieta Ortega CPhT - 09/13/2022 11:27 AM EDT PT HAS 1 TAB LEFT. Did you pend patient's preferred pharmacy and medication before forwarding?yes Pharmacy: [facility] #[id number] Pending Prescriptions: Disp Refills LORazepam 0.5 MG Oral Tablet (Ativan) 60 Tab*0 Sig: Take 1 Tablet by mouth 2 times a day as needed for Anxiety. Last Visit: 03/13/2019 (in office), 07/25/2022 (telemedicine) Next Visit: 09/21/2022 If no future appointments scheduled, and last appointment is greater than a year ago, please schedule patient for a follow-up appointment Last date the medication was ordered: 08/05/2022 Is this request for a controlled substance?Yes, What was the last refill date 08/05/2022 w/ [id number] and dosage ? and Urine Drug Screen Not completed Urine Drug Screen:No results found for this or any previous visit. Patient Phone Numbers Labs: Lab Results Component Value Date/Time CREAT 1.0 02/25/2021 10:26 AM POTASSIUM 4.6 02/25/2021 10:26 AM ALT 13 02/25/2021 10:26 AM documented in this encounter Plan of Treatment Upcoming Encounters Date Type Specialty Care Team Description 09/15/2022 Telemedicine Psychology Sujata Lewis LCSW [address] [place] [address] 09/21/2022 Telemedicine Psychiatry Trey Anne MD [address] [place] [address] Health Maintenance Due Date Last [...] of this encounter Visit Diagnoses Diagnosis Panic Panic disorder without agoraphobia FRANCOIS (generalized anxiety disorder) Generalized anxiety disorder documented in this encounter Care Teams Acid Recovery Operator Relationship Specialty Start Date End Date Azul Stephens PA-C [address] [place] [address] PCP - General Physician Psychologists 11/05/20 documented as of this encounter
--- OUTSIDE RECORDS SUMMARY | 2023-02-28 07:05 | External Medical Summary | Summary of Care ---
Author Name Unknown Organization [facility] Address [address] [place] [address] Phone [phone] Care Team Providers Care Rn Nicu Name Role Phone Azul Stephens PA-C Primary Care Provider [phone] Reason for Visit * Reason Onset Date Comments Medical Records Request 09/21/2022 [place] [facility] Encounter Details Date Type Department Care Team Description 09/21/2022 Telephone Psychiatry, [facility] [address] [place], [place] [id number] Trey Anne MD [address] [place] [address] Medical Records Request ( [place] dept of Labor /) Allergies Active Allergy Reactions Severity Noted Date Comments Amitriptyline Rash Medium 11/12/2018 documented as of this encounter (statuses as of 09/21/2022) Medications Medication Sig Dispensed Refills Start Date [...] as of this encounter (statuses as of 09/21/2022) Active Problems Problem Noted Date Food insecurity 04/19/2021 Overview: Per [facility] Protocol MDD (major depressive disorder), recurre nt episode, mild 05/13/2020 FRANCOIS (generalized anxiety disorder) 09/14 Major depressive disorder, recurrent, mo derate 09/14/2018 ADHD (attention deficit hyperactivity di sorder), combined type 09/14/2018 Sleep disturbance 04/16/2012 Allergic rhinitis Intermittent asthma with reliever use up to twice per week documented as of this encounter (statuses as of 09/21/2022) Resolved Problems Problem Noted Date Resolved Date Bipolar 1 disorder 07/24/2017 09/14/2018 Primary insomnia 01/01/2016 09/14/2018 Dizziness 06/23/2015 03/30/2018 Dizziness 07/09/2012 05/12/2015 Ganglion 07/09/2012 03/30/2018 Panic disorder 04/16/2012 09/14/2018 Anxiety 02/23/2021 documented as of this encounter (statuses as of 09/21/2022) Social History Tobacco Use Types Packs/Day Years [...] encounter Miscellaneous Notes * Telephone Encounter - MANJIT Becerril - 09/21/2022 8:32 AM EDT Medical Record Request Med Recs from [place] [facility] Med Recs forwarded to [facility] documented in this encounter Plan of Treatment Upcoming Encounters Date Type Specialty Care Team Description 09/21/2022 Telemedicine Psychiatry Trey Anne MD [address], [place] [phone] 09/26/2022 Telemedicine Psychology Sujata Lewis LCSW [address] [place] [address] Health Maintenance Due Date Last [...] filedocumented as of this encounter Care Teams Rn Nicu Relationship Specialty Start Date End Date Azul Stephens PA-C [address] [facility], [place] [address] PCP - General Physician Pst Supervisor 11/05/20 documented as of this encounter
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
--- OUTSIDE RECORDS SUMMARY | 2023-02-28 07:05 | External Medical Summary | Summary of Care ---
Author Name Unknown Organization [facility] Address [address] [place] [address] Phone [phone] Care Team Providers Care Ceramics Technician Name Role Phone Azul Stephens PA-C Primary Care Provider [phone] Reason for Visit * Reason Onset Date Comments Medication Refill 09/02/2022 Encounter Details Date Type Department Care Team Description 09/02/2022 Refill Psychiatry, [facility] [address] [place] [address] Trey Anne MD [address] [place] [address] Allergies Active Allergy Reactions Severity Noted Date Comments Amitriptyline Rash Medium 11/12/2018 documented as of this encounter (statuses as of 09/02/2022) Medications Medication Sig Dispensed Refills Start Date [...] the morning.. 180 Tablet 1 04/26/2022 Active LORazepam 0.5 MG Oral Tablet (Ativan)Indication s:Panic,FRANCOIS (generalized anxiety disorder) Take 1 Tablet by mouth 2 times a day as needed for Anxiety. 60 Tablet 0 08/05/2022 Active ARIPiprazole 5 MG Oral Tablet (Abilify) Take 1.5 Tablets by mouth in the morning. 45 Tablet 0 09/02/2022 Active ARIPiprazole 5 MG Oral Tablet (Abilify) Take 1 Tablet by mouth in the morning. 30 Tablet 2 08/15/2022 09/02/2022 Discontinued (Refill) documented as of this encounter (statuses as of 09/02/2022) Active Problems Problem Noted Date Food insecurity 04/19/2021 Overview: Per [facility] Protocol MDD (major depressive disorder), recurre nt episode, mild 05/13/2020 FRANCOIS (generalized anxiety disorder) 09/14 Major depressive disorder, recurrent, mo derate 09/14/2018 ADHD (attention deficit hyperactivity di sorder), combined type 09/14/2018 Sleep disturbance 04/16/2012 Allergic rhinitis Intermittent asthma with reliever use up to twice per week documented as of this encounter (statuses as of 09/02/2022) Resolved Problems Problem Noted Date Resolved Date Bipolar 1 disorder 07/24/2017 09/14/2018 Primary insomnia 01/01/2016 09/14/2018 Dizziness 06/23/2015 03/30/2018 Dizziness 07/09/2012 05/12/2015 Ganglion 07/09/2012 03/30/2018 Panic disorder 04/16/2012 09/14/2018 Anxiety 02/23/2021 documented as of this encounter (statuses as of 09/02/2022) Social History Tobacco Use Types Packs/Day Years [...] encounter Miscellaneous Notes * Telephone Encounter - Sol Salguero MD - 09/02/2022 10:59 AM EDTSigned Prescriptions: Disp Refills ARIPiprazole 5 MG Oral Tablet (Abilify) 45 Tab*0 Sig: Take 1.5 Tablets by mouth in the morning.Authorizing Provider: SOL SALGUERO * Telephone Encounter - MANJIT Dong - 09/02/2022 10:31 AM EDTPending Prescriptions: Disp Refills ARIPiprazole 5 MG Oral Tablet (Abilify) 30 Tab*2 Sig: Take 1 Tablet by mouth in the morning. * Telephone Encounter - MANJIT Dong - 09/02/2022 10:29 AM EDT Early refill. instructed to take 1.5 Please send updated script. Refill request from patient ([facility]) for abilify. Medication last filled on 08/15/22 with 2 refills. Patient last seen on 07/25/22 with return appointment scheduled for 09/21/22. Patient had 0 cancelled appointments and 0 NO SHOW appointments. documented in this encounter Plan of Treatment Upcoming Encounters Date Type Specialty Care Team Description 09/15/2022 Telemedicine Psychology Sujata Lewis LCSW [address] [place] [address] 09/21/2022 Telemedicine Psychiatry Trey Anne MD [address] [place] [address] Health Maintenance Due Date Last Done Comments [...] filedocumented as of this encounter Care Teams Ceramics Technician Relationship Specialty Start Date End Date Azul Stephens PA-C [address] [place] [address] PCP - General Physician Grain Spouter 11/05/20 documented as of this encounter
[2023-02-28] MEDS ORDERED: ACETAMINOPHEN 1,000 MG/100 ML VIAL IV STA (07:36)
[2023-02-28] MEDS ORDERED: SODIUM CHLORIDE 0.9% 1,000 ML IV ONE (07:36)
--- NOTE | 2023-02-28 08:02 | Emergency Department Note ---
Impression & Plan Pulmonary embolism and infarction, Acute deep vein thrombosis (DVT) of iliac vein of right lower extremity, Left flank pain ED Provider Note CHIEF COMPLAINT: Chest and back pain on the left side x1 day HISTORY OF PRESENT ILLNESS: This 32-year-old patient presents to the emergency department via private vehicle for evaluation of chest and back pain which started last night. The patient states the pain started in his mid back and radiated around to the upper abdomen and ribs. Overnight, he seemed to develop some left-sided chest pain. He states the pain is worse with deep breathing. He denies any shortness of breath. He denies any cough or congestion, runny nose, sore throat. He denies any recent fever or illness. No diarrhea or constipation. No coughing up blood. No leg pain or swelling. No history of DVT or PE. No history of heart disease or stroke in him or his family. The patient denies any chronic medical problems. No history of similar symptoms in the past. He does note that the chest pain seems to improve with sitting upright and worsens with lying flat. Patient did not take any medication for his symptoms REVIEW OF SYSTEMS: A 10 system review of systems was performed with positives and pertinent negatives listed in the history of present illness. All other systems were reviewed and are negative. ALLERGIES: NKDA PHYSICAL EXAM: VITALS: Vitals are noted on the nurse's note and reviewed by myself. Vital signs stable. GENERAL: This is a 32 year old male, in no acute distress, nondiaphoretic, well- developed well-nourished. SKIN: The skin was without rashes, erythema, edema, or bruising. There is no tenting of the skin. Capillary refill less than 2 seconds. HEAD: Normocephalic atraumatic. EYES: Conjunctivae without injection, sclerae without icterus. NECK: Supple without nuchal rigidity. No lymphadenopathy. No JVD. HEART: Regular rate and rhythm without murmurs gallops or rubs. LUNGS: Clear to auscultation bilaterally without wheezes, rales or rhonchi. No retractions or accessory muscle use. ABDOMEN: Left-sided CVA tenderness. Positive bowel sounds x 4. Soft, nontender, without masses or organomegaly. Becerril sign negative. No guarding or rebound tenderness. MUSCULOSKELETAL: Tenderness over the left ribs. No muscle atrophy, erythema, or edema noted. Full range of motion without joint tenderness in all extremities. No tenderness to palpation. Normal gait. Strength 5/5 throughout. NEURO: Patient was alert and oriented to person place and time. No focal neurological deficits. An order was placed for continuous cardiac rehab nurse. The monitor showed a normal sinus rhythm at a ventricular rate of 88 bpm, per my interpretation. EMERGENCY DEPARTMENT COURSE: This 32-year-old male patient presents to the emergency department today for evaluation of left-sided flank pain. The pain is radiating into his chest and was associated with some worsening pain with deep breathing. The patient denies any history of travel, hormone use, smoking, tobacco use, or family history of DVT or PE. Work-up completed as above due to his complaints of left flank pain. IV access was obtained, labs were drawn. Mild leukocytosis of 12.78. No anemia or thrombocytopenia. Renal, hepatic function and electrolytes without significant abnormality. INR 1.0. D-dimer 4450. Urinalysis negative for blood or evidence of infection. Given the location of the pain, we did elect to perform CT angio of the chest as well as CT of the abdomen/pelvis with IV contrast. CT scans were concerning for left lower lobe pulmonary embolus resulting in pulmonary infarct. CT of the abdomen/pelvis was concerning for visualization of the pulmonary embolisms, as well as right iliac vein DVT. I discussed the case with my attending physician. The patient was started on heparin here in the emergency department. [facility] The patient will be admitted to the hospitalist service for further evaluation and management. Please see hospitalist dictation regarding ongoing management care of this patient Differential diagnosis includes PE, pneumonia, pleural effusion, pneumothorax, cardiac disease, renal colic, UTI, appendicitis, diverticulitis, mesenteric ischemia, aortic pathology, infections, inflammatory bowel disease, PUD, biliary pathology, as well as other pathologies. I attest that I have personally reviewed the patient's current medication list. Patient was found to have normal blood pressure on screening and does not require follow-up. The chart was completed utilizing [employer] voice recognition software. Grammatical errors, random word insertions, pronoun errors, and incomplete sentences are an occasional consequence of this system due to software limitations, ambient noise, and hardware issues. Any formal questions or concerns about the content, text, or information contained within the body of this dictation should be directly addressed to the provider for clarification. Attending Attestation: I Mahendra Hoff MD discussed the patient's history and presentation as well as plan of care with the physician assistant men's soccer coach. See her note for full details. Patient unfortunately found to have not only pulmonary embolism is also a iliac vein thrombus. As such high risk for possible spread and started on heparin drip. Will admit for further anticoagulation and monitoring. Hospitalist team has been contacted. Critical Care I have personally spent 33 minutes of critical care time in the direct management of this patient. This includes bedside care, interpretation of diagnostic studies, and testing, discussion with consultants, patient, and other required patient management activities. These 33 minutes is in excess of all separately billable procedures. Past Med/Surg History Medical History (Updated 02/28/23 @ 11:13 by Denise Campbell PA-C) ADHD (attention deficit hyperactivity disorder), combined type FRANCOIS (generalized anxiety disorder) MDD (major depressive disorder) Mild intermittent asthma Hx of migraines Surgical History History of dental surgery Family History (Updated 02/28/23 @ 11:02 by Denise Campbell PA-C) Grandmother (Maternal) Deep vein thrombosis Other Cancer Diabetes Hypertension Social History (Updated 02/28/23 @ 11:04 by Denise Campbell PA-C) Hx Alcohol Use: Yes Alcohol Intake Frequency: 2-4 x/Month Hx Substance Use: Yes Prescribed Medications: Marijuana Last Used Substance: Unknown Preferred Language: Welsh Communication Ability: Effective Visual Impairment: No Limitations Hearing Ability: Normal Current Living Situation: Spouse current occupational status: employed Feels Safe at Home: Yes Allergies Allergies Allergy/AdvReac Type Severity Reaction Status Date / Time animal dander Allergy Intermediate ITCY EYES, Verified 06/24/19 15:22 SNEEZING, CONGESTION house dust Allergy Intermediate ITCHY Verified 02/28/23 10:05 EYES, SNEEZING, CONGESTION pollen extracts Allergy Intermediate ITCHY Verified 06/24/19 15:22 EYES, SNEEZING, CONGESTION Home Meds Home Medications Medication Instructions Recorded Confirmed sertraline 100 mg tablet 200 mg PO QAM 06/24/19 02/28/23 albuterol sulfate 90 mcg/actuation 2 puff inhalation Q4H PRN Wheezing 02/28/23 02/28/23 aerosol inhaler aripiprazole 5 mg tablet 7.5 mg PO DAILY 02/28/23 02/28/23 clonazepam 0.5 mg tablet 0.5 mg PO BID 02/28/23 02/28/23 guanfacine 1 mg tablet 1 mg PO HS 02/28/23 02/28/23 Previous Rx's Medication Instructions Recorded apixaban 5 mg tablet (Eliquis) 5 mg PO BID #60 tabs 02/28/23 apixaban 5 mg tablet (Eliquis) 10 mg (2 x 5 mg) PO BID #28 tabs 02/28/23 Results & Data (ED) Vital Signs Vital Signs - 24 hr 02/28/23 07:03 02/28/23 08:02 02/28/23 08:03 Temperature 37.0 C Temperature Source Temporal Artery Scan Pulse Rate 88 Pulse Rate [Apical] Pulse Rate from SpO2 Sensor Respiratory Rate 16 Respiratory Effort / Characteristics Non-Labored Respiratory Depth Normal Blood Pressure 125/77 Blood Pressure [Right Arm] Blood Pressure Mean 93 Blood Pressure Mean [Right Arm] Pulse Oximetry 96 100 100 Oxygen Delivery Method Room Air Room Air Room Air Sepsis Recent Fever Within 48 Hours No Sepsis New/Unexplained Change in Mental Status N/A Sepsis Action Taken by Nursing No Action Required 02/28/23 09:00 02/28/23 09:17 02/28/23 09:19 Temperature Temperature Source Pulse Rate 67 68 Pulse Rate [Apical] 66 Pulse Rate from SpO2 Sensor 68 Respiratory Rate 18 15 Respiratory Effort / Characteristics Respiratory Depth Blood Pressure Blood Pressure [Right Arm] 109/99 Blood Pressure Mean Blood Pressure Mean [Right Arm] 102 Pulse Oximetry 99 96 Oxygen Delivery Method Sepsis Recent Fever Within 48 Hours Sepsis New/Unexplained Change in Mental Status Sepsis Action Taken by Nursing 02/28/23 09:20 02/28/23 09:30 02/28/23 09:40 Temperature Temperature Source Pulse Rate 69 78 65 Pulse Rate [Apical] Pulse Rate from SpO2 Sensor 73 78 65 Respiratory Rate 15 15 13 Respiratory Effort / Characteristics Respiratory Depth Blood Pressure Blood Pressure [Right Arm] Blood Pressure Mean Blood Pressure Mean [Right Arm] Pulse Oximetry 97 96 96 Oxygen Delivery Method Sepsis Recent Fever Within 48 Hours Sepsis New/Unexplained Change in Mental Status Sepsis Action Taken by Nursing 02/28/23 09:50 02/28/23 10:00 02/28/23 10:10 Temperature Temperature Source Pulse Rate 71 67 72 Pulse Rate [Apical] Pulse Rate from SpO2 Sensor 73 67 72 Respiratory Rate 14 14 13 Respiratory Effort / Characteristics Respiratory Depth Blood Pressure Blood Pressure [Right Arm] Blood Pressure Mean Blood Pressure Mean [Right Arm] Pulse Oximetry 96 96 96 Oxygen Delivery Method Sepsis Recent Fever Within 48 Hours Sepsis New/Unexplained Change in Mental Status Sepsis Action Taken by Nursing 02/28/23 10:20 02/28/23 10:30 02/28/23 10:40 Temperature Temperature Source Pulse Rate 64 68 65 Pulse Rate [Apical] Pulse Rate from SpO2 Sensor 64 66 64 Respiratory Rate 14 16 13 Respiratory Effort / Characteristics Respiratory Depth Blood Pressure Blood Pressure [Right Arm] Blood Pressure Mean Blood Pressure Mean [Right Arm] Pulse Oximetry 96 97 96 Oxygen Delivery Method Sepsis Recent Fever Within 48 Hours Sepsis New/Unexplained Change in Mental Status Sepsis Action Taken by Nursing 02/28/23 10:50 Temperature Temperature Source Pulse Rate 63 Pulse Rate [Apical] Pulse Rate from SpO2 Sensor 62 Respiratory Rate 13 Respiratory Effort / Characteristics Respiratory Depth Blood Pressure Blood Pressure [Right Arm] Blood Pressure Mean Blood Pressure Mean [Right Arm] Pulse Oximetry 96 Oxygen Delivery Method Sepsis Recent Fever Within 48 Hours Sepsis New/Unexplained Change in Mental Status Sepsis Action Taken by Nursing Laboratory Data 02/28/23 07:45 02/28/23 07:45 Lab Results 02/28/23 02/28/23 Range/Units 07:45 09:09 WBC 12.78 H (4.8-10.8) K/ul RBC 4.71 (4.70-6.10) M/uL Hgb 14.4 (14.0-18.0) g/dl Hct 41.8 L (42.0-52.0) % MCV 88.7 (80.0-100.0) fL MCH 30.6 (25.0-34.0) pg MCHC 34.4 (32.0-36.0) g/dL RDW Std Deviation 41.1 (36.4-46.3) fL RDW Coeff of Elma 12.5 (11.5-14.5) % Plt Count 145 (130-400) K/uL MPV 9.6 (9.4-12.4) fL Immature Gran % (Auto) 0.3 % Neut % (Auto) 81.7 % Lymph % (Auto) 10.2 % Garza % (Auto) 6.5 % Eos % (Auto) 1.0 % Baso % (Auto) 0.3 % Neut # (Auto) 10.44 H (1.40-6.50) K/uL Lymph # (Auto) 1.30 (1.20-3.40) K/uL Garza # (Auto) 0.83 H (0.11-0.59) K/uL Eos # (Auto) 0.13 (0.00-0.50) K/uL Baso # (Auto) 0.04 (0.00-0.20) K/uL Immature Gran # (Auto) 0.04 (0.01-0.20) K/uL PT 11.0 (9.0-12.0) Seconds INR 1.0 (0.9-1.1) APTT 28.1 (21.0-31.0) Seconds PTT Ratio 1.0 D-Dimer 4450 H* (0-500) ug/L FEU Sodium 139 (136-145) mmol/L Potassium 4.2 (3.5-5.1) mmol/L Chloride 103 (98-107) mmol/L Carbon Dioxide 30 (21-32) mmol/L Anion Gap 6 (3-11) BUN 20 (6-23) mg/dl Creatinine 1.11 (0.6-1.4) mg/dl Est Cr Clr Drug Dosing 96.3 ml/min Est GFR ( Amer) 100.6 ml/min Est GFR (Non-Af Amer) 86.8 ml/min BUN/Creatinine Ratio 18.0 (10-20) Glucose 103 H (70-99(Fasting)) mg/dl Calcium 9.7 (8.6-10.3) mg/dl Total Bilirubin 0.6 (0.2-1.0) mg/dl AST 14 (13-39) U/L ALT 22 (7-52) U/L Alkaline Phosphatase 114 H (34-104) U/L Troponin I High Sens 2.8 (0-20) pg/ml Total Protein 7.7 (6.0-8.3) gm/dl Albumin 4.8 (3.4-5.0) gm/dl Globulin 2.9 (2.5-4.0) gm/dl Albumin/Globulin Ratio 1.7 (0.9-2) Lipase 9 L (11-82) U/L Urine Color Yellow Urine Appearance Clear (Clear) Urine pH 5.5 (4.5-7.5) Ur Specific Blanchard 1.023 (1.000-1.030) Urine Protein Negative (Negative) Urine Glucose (UA) Negative (Negative) Urine Ketones Negative (Negative) Urine Blood Negative (Negative) Urine Nitrite Negative (Negative) Urine Bilirubin Negative (Negative) Urine Urobilinogen Negative (Negative) Ur Leukocyte Esterase Negative (Negative) Administered Medications Heparin Sodium/Dextrose (Heparin Sodium/Dextrose) 25,000 units in 500 mls @ 26 mls/hr IV .[id number] [facility]; Protocol Stop: 03/30/23 09:59 Last Admin: 02/28/23 09:53 Dose: 1,300 units/hr, 26 mls/hr Documented By: CHENTE Co-signed By: VIVI Discontinued Medications Heparin Sodium (Porcine) (Heparin Sod (Porcine) 1000 Unit/Ml) 6,000 units IV NOW STA Stop: 02/28/23 09:42 Last Admin: 02/28/23 09:52 Dose: 6,000 units Documented By: CHENTE Co-signed By: VIVI Sodium Chloride (Nss) 1,000 mls @ 999 mls/hr IV .Q1H1M ONE Stop: 02/28/23 08:36 Last Infusion: 02/28/23 09:11 Dose: Infused Documented By: Admin: 02/28/23 07:52 Dose: 999 mls/hr Documented By: CHETNE Acetaminophen (Ofirmev) 1,000 mg in 100 mls @ 400 mls/hr IV NOW STA Stop: 02/28/23 07:50 Last Infusion: 02/28/23 08:33 Dose: Infused Documented By: Admin: 02/28/23 07:52 Dose: 400 mls/hr Documented By: CHENTE Ioversol (Optiray 320 125ml) 116 ml IV ONCE ONE Stop: 02/28/23 08:52 Last Admin: 02/28/23 08:51 Dose: 116 ml Documented By: RAMESH Imaging Data Radiologist's Impression: Chest X-Ray 02/28/23 07:36 SINGLE VIEW CHEST CLINICAL HISTORY: Atypical chest pain. Left flank pain FINDINGS: An AP, portable, upright chest radiograph is compared to study dated 06/24/2019. The cardiomediastinal silhouette is unremarkable. There is left basilar atelectasis. The lungs and pleural spaces are otherwise clear. No pneumothorax is seen. The bony thorax is grossly intact. IMPRESSION: No acute cardiopulmonary abnormality. ACT 112: Negative or not required by law. Electronically signed by: Cullen Lance M.D. 02/28/2023 8:09 AM Abdomen/Pelvis CT 02/28/23 08:33 CT SCAN OF THE ABDOMEN AND PELVIS WITH IV CONTRAST CLINICAL HISTORY: Left flank pain. COMPARISON STUDY: No priors. TECHNIQUE: Following the IV administration of 116 cc of Optiray 320, CT scan of the abdomen and pelvis is performed from the lung bases to the proximal femora. Images are reviewed in the axial, sagittal, and coronal planes. IV contrast was administered without complication. A dose lowering technique was utilized adhering to the principles of ALARA. FINDINGS: Lung bases: The heart is normal in size and without pericardial effusion. There is airspace consolidation at the left lung base and trace left pleural effusion. Segmental in subsegmental pulmonary emboli are seen within branches of the left lower lobe pulmonary artery. There are also pulmonary emboli within branches of the right lower lobe pulmonary artery. Liver: The contrast-enhanced liver is normal in size, contour, and attenuation. There is no intrahepatic biliary ductal dilatation. The hepatic veins and portal veins are patent. There are at least 3 hepatic hemangiomas which measure up to 2.1 cm. Gallbladder: Unremarkable. Spleen: The spleen is mildly enlarged measuring 14.2 cm in length. Pancreas: Unremarkable. Adrenal glands: Unremarkable. Kidneys: The contrast enhanced kidneys are normal in size and without hydronephrosis. The kidneys enhance symmetrically. Abdominal vasculature: The abdominal aorta is normal in course and caliber. There is deep venous thrombosis identified in the right iliac vein serial axial images #[id number]. No thrombus is seen within the IVC.1 Bowel: There is no bowel obstruction. The appendix is well-visualized and normal. Peritoneum: There is no intraperitoneal free air or abdominal ascites. Lymphadenopathy: None. Pelvic viscera: The bladder, prostate, and seminal vesicles are normal as imaged. There are bilateral fat-containing inguinal hernias. Skeletal structures: No lytic or blastic lesions are seen. IMPRESSION: 1. Segmental and subsegmental pulmonary emboli are seen within branches of the lower lobe pulmonary arteries, left greater than right. 2. Left basilar consolidation likely represents a pulmonary infarct and there is trace left pleural effusion. 3. Right iliac vein deep venous thrombosis. 4. Mild splenomegaly. 5. Additional findings as above. ACT 112: Negative or not required by law. Electronically signed by: Cullen Lance M.D. 02/28/2023 9:09 AM Chest CTA 02/28/23 08:33 CT angio chest PE protocol CLINICAL HISTORY: +dimer, left chest/flank pain TECHNIQUE: Multidetector row helical CT of the chest was performed with angiographic protocol. Coronal and sagittal reformations were obtained. Coronal and sagittal MIPS were obtained from the axial data set and were submitted for review. Automated dose lowering techniques and/or adjustment according to patient size were utilized for this exam. CT DOSE: 1887.98 mGy.cm Comparison: Comparison is made to chest radiograph 02/28/2023 FINDINGS: Lungs and pleura: Opacity is seen in the left lower lung which may represent pulmonary infarct. Heart and pericardium: Heart size is normal. No pericardial effusion. Vessels: Lobar, segmental, and subsegmental emboli are seen in the left lower lobe. A few segmental and smaller emboli are seen elsewhere the lung, evaluation is limited by suboptimal contrast timing. Mediastinum and kim: Subcentimeter lymph nodes are seen. Chest wall and lower neck: Unremarkable. Abdomen: Unremarkable. Bones: Unremarkable. IMPRESSION: Predominantly left lower lobar pulmonary embolus results in pulmonary infarct. ACT 112: Negative or not required by law. Electronically signed by: Judah Addison M.D. 02/28/2023 9:12 AM Discharge Plan Visit Data Chief Complaint: Shortness of Breath/Dyspnea Stated Complaint: BACK PAIN/SOB/CHEST PAIN ED Provider: Mahendra Hoff ED Midlevel Provider: Julisa Atkinson Discharge Problem: Pulmonary embolism and infarction, Acute deep vein thrombosis (DVT) of iliac vein of right lower extremity, Left flank pain Patient Disposition: Admitted As Inpatient Forms Stand Alone Forms: [facility] Prescriptions Prescriptions: New Eliquis 5 mg tablet 10 mg PO BID Qty: 28 0RF Rx Instructions: Take 10mg twice daily x first 7 days, followed by 5mg twice daily Eliquis 5 mg tablet 5 mg PO BID Qty: 60 0RF Rx Instructions: start on Day 8, after initial bolus week No Action sertraline 100 mg tablet 200 mg PO QAM clonazepam 0.5 mg tablet 0.5 mg PO BID guanfacine 1 mg tablet 1 mg PO HS albuterol sulfate 90 mcg/actuation HFA aerosol inhaler 2 puff INHALATION Q4H PRN (Reason: Wheezing) aripiprazole 5 mg tablet 7.5 mg PO DAILY Referrals Referrals: Elías Nicole, [Primary Care Provider] -
[2023-02-28 08:05] LABS: Basophils # (auto) 0.04 K/uL (0.00-0.20); Basophils % (auto) 0.3 %; Eosinophils # (auto) 0.13 K/uL (0.00-0.50); Hematocrit (blood only) 41.8 % (42.0-52.0); Hemoglobin 14.4 g/dl (14.0-18.0); Immature Granulocytes # (auto) 0.04 K/uL (0.01-0.20); Immature Granulocytes % (auto) 0.3 %; Lymphocytes % (auto) 10.2 %; Mean Corpuscular Hemoglobin 30.6 pg (25.0-34.0); Mean Corpuscular Hgb Conc 34.4 g/dL (32.0-36.0); Mean Corpuscular Volume 88.7 fL (80.0-100.0); Mean Platelet Volume 9.6 fL (9.4-12.4); Monocytes # (auto) 0.83 K/uL (0.11-0.59); Monocytes % (auto) 6.5 %; Neutrophils # (auto) 10.44 K/uL (1.40-6.50); Neutrophils % (auto) 81.7 %; Platelet Count 145 K/uL (130-400); RDW Coefficient of Variation 12.5 % (11.5-14.5); RDW Standard Deviation 41.1 fL (36.4-46.3); Red Blood Count 4.71 M/uL (4.70-6.10); White Blood Count 12.78 K/ul (4.8-10.8)
--- NOTE | 2023-02-28 08:10 | XRay Report ---
SINGLE VIEW CHEST CLINICAL HISTORY: Atypical chest pain. Left flank pain FINDINGS: An AP, portable, upright chest radiograph is compared to study dated 06/24/2019. The cardiom ediastinal silhouette is unremarkable. There is left basilar atelectasis. The lungs and pleural space s are otherwise clear. No pneumothorax is seen. The bony thorax is grossly intact. IMPRESSION: No acute cardiopulmonary abnormality. ACT 112: Negative or not required by law. Electronically signed by: Cullen Lance M.D. 02/28/2023 8:09 AM
[2023-02-28 08:21] LABS: Albumin Level 4.8 gm/dl (3.4-5.0); Bilirubin,Total 0.6 mg/dl (0.2-1.0); Calcium 9.7 mg/dl (8.6-10.3); Potassium 4.2 mmol/L (3.5-5.1)
[2023-02-28 08:27] LABS: Albumin Globulin Ratio 1.7 (0.9-2); Creatinine Clr Calc Pharmacy 96.3 ml/min; Est GFR (African American) 100.6 ml/min; Est GFR (Non-African American) 86.8 ml/min; Globulin 2.9 gm/dl (2.5-4.0); Total Protein 7.7 gm/dl (6.0-8.3)
[2023-02-28 08:28] LABS: Partial Thromboplastin Time 28.1 Seconds (21.0-31.0)
[2023-02-28 08:30] LABS: D Dimer 4450 ug/L FEU (0-500)
[2023-02-28 08:32] LABS: Troponin I High Sensitivity 2.8 pg/ml (0-20)
[2023-02-28] MEDS ORDERED: OPTIRAY 320 125ml IV ONE (08:51)
--- NOTE | 2023-02-28 09:12 | CT Scan Report ---
CT SCAN OF THE ABDOMEN AND PELVIS WITH IV CONTRAST CLINICAL HISTORY: Left flank pain. COMPARISON STUDY: No priors. TECHNIQUE: Following the IV administration of 116 cc of Optiray 320, CT scan of the abdomen and pelv is is performed from the lung bases to the proximal femora. Images are reviewed in the axial, sagitta l, and coronal planes. IV contrast was administered without complication. A dose lowering technique w as utilized adhering to the principles of ALARA. FINDINGS: Lung bases: The heart is normal in size and without pericardial effusion. There is airspace consolida tion at the left lung base and trace left pleural effusion. Segmental in subsegmental pulmonary embol i are seen within branches of the left lower lobe pulmonary artery. There are also pulmonary emboli w ithin branches of the right lower lobe pulmonary artery. Liver: The contrast-enhanced liver is normal in size, contour, and attenuation. There is no intrahepa tic biliary ductal dilatation. The hepatic veins and portal veins are patent. There are at least 3 [facility] hemangiomas which measure up to 2.1 cm. Gallbladder: Unremarkable. Spleen: The spleen is mildly enlarged measuring 14.2 cm in length. Pancreas: Unremarkable. Adrenal glands: Unremarkable. Kidneys: The contrast enhanced kidneys are normal in size and without hydronephrosis. The kidneys enh ance symmetrically. Abdominal vasculature: The abdominal aorta is normal in course and caliber. There is deep venous thro mbosis identified in the right iliac vein serial axial images #[id number]. No thrombus is seen within th e IVC.1 Bowel: There is no bowel obstruction. The appendix is well-visualized and normal. Peritoneum: There is no intraperitoneal free air or abdominal ascites. Lymphadenopathy: None. Pelvic viscera: The bladder, prostate, and seminal vesicles are normal as imaged. There are bilateral fat-containing inguinal hernias. Skeletal structures: No lytic or blastic lesions are seen. IMPRESSION: 1. Segmental and subsegmental pulmonary emboli are seen within branches of the lower lobe pulmonary a rteries, left greater than right. 2. Left basilar consolidation likely represents a pulmonary infarct and there is trace left pleural e ffusion. 3. Right iliac vein deep venous thrombosis. 4. Mild splenomegaly. 5. Additional findings as above. ACT 112: Negative or not required by law. Electronically signed by: Cullen Lance M.D. 02/28/2023 9:09 AM
--- NOTE | 2023-02-28 09:13 | CT Scan Report ---
CT angio chest PE protocol CLINICAL HISTORY: +dimer, left chest/flank pain TECHNIQUE: Multidetector row helical CT of the chest was performed with angiographic protocol. Acosta l and sagittal reformations were obtained. Coronal and sagittal MIPS were obtained from the axial joselin a set and were submitted for review. Automated dose lowering techniques and/or adjustment according to patient size were utilized for this exam. CT DOSE: 1887.98 mGy.cm Comparison: Comparison is made to chest radiograph 02/28/2023 FINDINGS: Lungs and pleura: Opacity is seen in the left lower lung which may represent pulmonary infarct. Heart and pericardium: Heart size is normal. No pericardial effusion. Vessels: Lobar, segmental, and subsegmental emboli are seen in the left lower lobe. A few segmental a nd smaller emboli are seen elsewhere the lung, evaluation is limited by suboptimal contrast timing. Mediastinum and kim: Subcentimeter lymph nodes are seen. Chest wall and lower neck: Unremarkable. Abdomen: Unremarkable. Bones: Unremarkable. IMPRESSION: Predominantly left lower lobar pulmonary embolus results in pulmonary infarct. ACT 112: Negative or not required by law. Electronically signed by: Judah Addison M.D. 02/28/2023 9:12 AM
[2023-02-28 09:15] LABS: Appearance Urine Clear (Clear); Bilirubin Urine Negative (Negative); Blood Urine Negative (Negative); Color Urine Yellow; Glucose Urine UA Negative (Negative); Ketones Urine Negative (Negative); Leukocyte Esterase Urine Negative (Negative); Nitrite Urine Negative (Negative); Protein Urine Negative (Negative); Specific Gravity Urine 1.023 (1.000-1.030); Urobilinogen Urine Negative (Negative); pH Urine 5.5 (4.5-7.5)
[2023-02-28] MEDS ORDERED: Heparin IV Adult Wt-Based Standard WITH Bolus Protocol IV STA (09:34)
[2023-02-28] MEDS ORDERED: HEPARIN SOD (PORCINE) 1000 UNIT/ML IV STA (09:41)
[2023-02-28] MEDS ORDERED: HEPARIN SOD (PORCINE) 1000 UNIT/ML IV ONE (09:50)
[2023-02-28] MEDS: HEPARIN SODIUM/DEXTROSE 25,000 UNITS/500 ML BAG IV SCH (09:53)
--- NOTE | 2023-02-28 09:58 | History & Physical Report ---
Date of Service February 28, 2023 Assessment & Plan (1) Pulmonary embolism and infarction: Plan: This is a 32 y/o male with mild intermittent asthma, FRANCOIS, and MDD who presented to the ED today with left chest and left mid-back pain since last evening. Work- up in the ED revealed an elevated D-Dimer >4000 so pt underwent CTA chest that revealed a LLL PE with infarct. Additional imaging revealed right iliac vein thrombosis. No specific inciting event, question of a family history of DVT in his maternal grandmother. Currently, pt is hemodynamically stable. Referred for admission for anticoagulation and further evaluation. - Admit to PCU - Heparin gtt started in the ED - will continue - Plan to transition to apixaban as outpatient - script sent to [facility] to ensure insurance coverage. - Hypercoagulable work-up initiated - Consult pulmonology for additional recommendations (2) Acute deep vein thrombosis (DVT) of iliac vein of right lower extremity: (3) FRANCOIS (generalized anxiety disorder): (4) MDD (major depressive disorder): (5) ADHD (attention deficit hyperactivity disorder), combined type: Plan Continue other home medications Pt seen and reviewed with collaborating physician, Dr. Cornell. Plan of care discussed and as outlined above. Code status: Full code DVT Prophylaxis: on heparin gtt Vita Campbell PA-C History of Present Illness Chief Complaint: left chest and back pain Primary Care Provider: Elías Nicole DO This is a 32 y/o male with mild intermittent asthma, FRANCOIS, and MDD who presented to the ED today with left chest and left mid-back pain since last evening. Pt reports being in his usual state of health yesterday. Around 8-9 pm last evening, he had the sudden onset of stabbing left mid-back pain. He went to bed and was able to sleep. However, this morning the pain was more severe and now present in his left lower chest as well. The pain was present constantly but worse with taking deep breaths. He felt like it continued to worsen so he asked his to bring him to the ED. No position helped the pain. He did not try any medications. This morning he had associated lightheadedness but no syncope. Denies SOB, KING, cough, palpitations, fevers, chills, sweats, recent surgery, recent prolonged travel, prior blood clot. His maternal grandmother had multiple DVTs but he does not recall her being diagnosed with anything specific such as Factor V Leiden. 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 Denies smoking tobacco although does smoke "medical marijuana"; denies other substances. Allergies Allergy/AdvReac Type Severity Reaction Status Date / Time animal dander Allergy Intermediate ITCY EYES, Verified 06/24/19 15:22 SNEEZING, CONGESTION house dust Allergy Intermediate ITCHY Verified 02/28/23 10:05 EYES, SNEEZING, CONGESTION pollen extracts Allergy Intermediate ITCHY Verified 06/24/19 15:22 EYES, SNEEZING, CONGESTION Home Medications Medication Instructions Recorded Confirmed Type sertraline 100 mg tablet 200 mg PO QAM 06/24/19 02/28/23 History albuterol sulfate 90 mcg/actuation 2 puff inhalation Q4H PRN Wheezing 02/28/23 02/28/23 History aerosol inhaler apixaban 5 mg tablet (Eliquis) 5 mg PO BID #60 tabs 02/28/23 Rx apixaban 5 mg tablet (Eliquis) 10 mg (2 x 5 mg) PO BID #28 tabs 02/28/23 Rx aripiprazole 5 mg tablet 7.5 mg PO DAILY 02/28/23 02/28/23 History clonazepam 0.5 mg tablet 0.5 mg PO BID 02/28/23 02/28/23 History guanfacine 1 mg tablet 1 mg PO HS 02/28/23 02/28/23 History Past Med/Surg History Medical History (Updated 02/28/23 @ 15:55 by Navjot Merchant PA-C) ADHD (attention deficit hyperactivity disorder), combined type FRANCOIS (generalized anxiety disorder) MDD (major depressive disorder) Mild intermittent asthma Hx of migraines Surgical History History of dental surgery Family History (Updated 02/28/23 @ 11:02 by Denise Campbell PA-C) Grandmother (Maternal) Deep vein thrombosis Other Cancer Diabetes Hypertension Social History (Updated 02/28/23 @ 11:04 by Denise Campbell PA-C) Smoking Status: Never smoker Second Hand Exposure: No; Do You Dip or Chew Tobacco: No; Tobacco Cessation Education Requested by Patient: No Hx Alcohol Use: Yes Alcohol Intake Frequency: 2-4 x/Month Hx Substance Use: Yes Prescribed Medications: Marijuana Last Used Substance: Unknown Substance Use Type Other:: medical marijuana Preferred Language: Maori Communication Ability: Effective Visual Impairment: No Limitations Hearing Ability: Normal Guillotine Trimmer Required: No Beliefs That Will Affect Care: None Current Living Situation: Spouse Current Living Situation Comment: Lives with spouse and son current occupational status: employed Other Information That Helps Us Care for You: No Feels Safe at Home: Yes Safety Concerns: Feels Safe At This Time Assistive Devices: None Review of Systems Review of Systems: All systems reviewed & are unremarkable except as noted in HPI & below Constitutional: no fever, no chills and no sweats Eyes: no diplopia Ear, Nose, Mouth, Throat: no nasal congestion, no nasal discharge, no post nasal drip and no sore throat Respiratory: + pain on inspiration; no cough and no d yspnea Cardiovascular: + chest pain and + lightheadedness; no p alpitations and no syncope Gastrointestinal: no abdominal pain, no nausea, no vomiting and no diarrhea/loose stools Genitourinary: no dysuria or no hematuria Musculoskeletal: + back pain; no neck pain and no joint p ain Integumentary: no rash and no yellowing of the skin Neurologic: no headache(s) and no confusion Psychiatric: + anxiety Physical Exam Physical Exam: General: awake, alert, NAD, appears stated age HEENT: no scleral icterus, +moist oral mucosa Neck: trachea midline Heart: RRR, no M/G/R Lungs: clear though diminished due to limited inspiratory effort (due to pain) Abd: soft, NT, ND, +BS Extremities: no pedal edema, no calf pain Skin: no jaundice, no rashes; warm and dry Neuro: moving all extremities, no focal deficits, no dysarthria or confusion Results & Data Results & Data Vital Signs (Past 12 Hours) Vital Signs Temp Pulse Pulse Resp BP BP Pulse Ox 02/28/23 09:20 69 15 97 02/28/23 09:19 68 02/28/23 09:17 67 15 96 02/28/23 09:00 66 18 109/99 99 02/28/23 08:03 100 02/28/23 08:02 100 02/28/23 07:03 37.0 C 88 16 125/77 96 O2 Del Method 02/28/23 09:20 02/28/23 09:19 02/28/23 09:17 02/28/23 09:00 02/28/23 08:03 Room Air 02/28/23 08:02 Room Air 02/28/23 07:03 Room Air Laboratory Results Laboratory Results - last 24 hr 02/28/23 02/28/23 07:45 09:09 WBC 12.78 H RBC 4.71 Hgb 14.4 Hct 41.8 L MCV 88.7 MCH 30.6 MCHC 34.4 RDW Std Deviation 41.1 RDW Coeff of Elma 12.5 Plt Count 145 MPV 9.6 Immature Gran % (Auto) 0.3 Neut % (Auto) 81.7 Lymph % (Auto) 10.2 [place] % (Auto) 6.5 Eos % (Auto) 1.0 Baso % (Auto) 0.3 Neut # (Auto) 10.44 H Lymph # (Auto) 1.30 [place] # (Auto) 0.83 H Eos # (Auto) 0.13 Baso # (Auto) 0.04 Immature Gran # (Auto) 0.04 PT 11.0 INR 1.0 APTT 28.1 PTT Ratio 1.0 D-Dimer 4450 H* Sodium 139 Potassium 4.2 Chloride 103 Carbon Dioxide 30 Anion Gap 6 BUN 20 Creatinine 1.11 Est Cr Clr Drug Dosing 96.3 Est GFR ( Amer) 100.6 Est GFR (Non-Af Amer) 86.8 BUN/Creatinine Ratio 18.0 Glucose 103 H Calcium 9.7 Total Bilirubin 0.6 AST 14 ALT 22 Alkaline Phosphatase 114 H Troponin I High Sens 2.8 Total Protein 7.7 Albumin 4.8 Globulin 2.9 Albumin/Globulin Ratio 1.7 Lipase 9 L Urine Color Yellow Urine Appearance Clear Urine pH 5.5 Ur Specific [place] 1.023 Urine Protein Negative Urine Glucose (UA) Negative Urine Ketones Negative Urine Blood Negative Urine Nitrite Negative Urine Bilirubin Negative Urine Urobilinogen Negative Ur Leukocyte Esterase Negative Diagnostic Findings Chest X-Ray 02/28/23 07:36 SINGLE VIEW CHEST CLINICAL HISTORY: Atypical chest pain. Left flank pain FINDINGS: An AP, portable, upright chest radiograph is compared to study dated 06/24/2019. The cardiomediastinal silhouette is unremarkable. There is left basilar atelectasis. The lungs and pleural spaces are otherwise clear. No pneumothorax is seen. The bony thorax is grossly intact. IMPRESSION: No acute cardiopulmonary abnormality. ACT 112: Negative or not required by law. Electronically signed by: Cullen Lance M.D. 02/28/2023 8:09 AM Abdomen/Pelvis CT 02/28/23 08:33 CT SCAN OF THE ABDOMEN AND PELVIS WITH IV CONTRAST CLINICAL HISTORY: Left flank pain. COMPARISON STUDY: No priors. TECHNIQUE: Following the IV administration of 116 cc of Optiray 320, CT scan of the abdomen and pelvis is performed from the lung bases to the proximal femora. Images are reviewed in the axial, sagittal, and coronal planes. IV contrast was administered without complication. A dose lowering technique was utilized adhering to the principles of ALARA. FINDINGS: Lung bases: The heart is normal in size and without pericardial effusion. There is airspace consolidation at the left lung base and trace left pleural effusion. Segmental in subsegmental pulmonary emboli are seen within branches of the left lower lobe pulmonary artery. There are also pulmonary emboli within branches of the right lower lobe pulmonary artery. Liver: The contrast-enhanced liver is normal in size, contour, and attenuation. There is no intrahepatic biliary ductal dilatation. The hepatic veins and portal veins are patent. There are at least 3 hepatic hemangiomas which measure up to 2.1 cm. Gallbladder: Unremarkable. Spleen: The spleen is mildly enlarged measuring 14.2 cm in length. Pancreas: Unremarkable. Adrenal glands: Unremarkable. Kidneys: The contrast enhanced kidneys are normal in size and without hydronephrosis. The kidneys enhance symmetrically. Abdominal vasculature: The abdominal aorta is normal in course and caliber. There is deep venous thrombosis identified in the right iliac vein serial axial images #[id number]. No thrombus is seen within the IVC.1 Bowel: There is no bowel obstruction. The appendix is well-visualized and n ormal. Peritoneum: There is no intraperitoneal free air or abdominal ascites. Lymphadenopathy: None. Pelvic viscera: The bladder, prostate, and seminal vesicles are normal as imaged. There are bilateral fat-containing inguinal hernias. Skeletal structures: No lytic or blastic lesions are seen. IMPRESSION: 1. Segmental and subsegmental pulmonary emboli are seen within branches of the lower lobe pulmonary arteries, left greater than right. 2. Left basilar consolidation likely represents a pulmonary infarct and there is trace left pleural effusion. 3. Right iliac vein deep venous thrombosis. 4. Mild splenomegaly. 5. Additional findings as above. ACT 112: Negative or not required by law. Electronically signed by: Cullen Lance M.D. 02/28/2023 9:09 AM Chest CTA 02/28/23 08:33 CT angio chest PE protocol CLINICAL HISTORY: +dimer, left chest/flank pain TECHNIQUE: Multidetector row helical CT of the chest was performed with angiographic protocol. Coronal and sagittal reformations were obtained. Coronal and sagittal MIPS were obtained from the axial data set and were submitted for review. Automated dose lowering techniques and/or adjustment according to patient size were utilized for this exam. CT DOSE: 1887.98 mGy.cm Comparison: Comparison is made to chest radiograph 02/28/2023 FINDINGS: Lungs and pleura: Opacity is seen in the left lower lung which may represent pulmonary infarct. Heart and pericardium: Heart size is normal. No pericardial effusion. Vessels: Lobar, segmental, and subsegmental emboli are seen in the left lower lobe. A few segmental and smaller emboli are seen elsewhere the lung, evaluation is limited by suboptimal contrast timing. Mediastinum and kim: Subcentimeter lymph nodes are seen. Chest wall and lower neck: Unremarkable. Abdomen: Unremarkable. Bones: Unremarkable. IMPRESSION: Predominantly left lower lobar pulmonary embolus results in pulmonary infarct. ACT 112: Negative or not required by law. Electronically signed by: Judah Addison M.D. 02/28/2023 9:12 AM Medications Administered Discontinued Medications Sodium Chloride (Nss) 1,000 mls @ 999 mls/hr IV .Q1H1M ONE Stop: 02/28/23 08:36 Last Infusion: 02/28/23 09:11 Dose: Infused Documented By: Admin: 02/28/23 07:52 Dose: 999 mls/hr Documented By: KT Acetaminophen (Ofirmev) 1,000 mg in 100 mls @ 400 mls/hr IV NOW STA Stop: 02/28/23 07:50 Last Infusion: 02/28/23 08:33 Dose: Infused Documented By: Admin: 02/28/23 07:52 Dose: 400 mls/hr Documented By: KT Ioversol (Optiray 320 125ml) 116 ml IV ONCE ONE Stop: 02/28/23 08:52 Last Admin: 02/28/23 08:51 Dose: 116 ml Documented By: RAMESH Supervising Physician Co-Signing Physician Notes I have seen and examined the patient and have discussed the case with the provider above. I agree with the assessment and plan as stated. 32 yo with unprovoked PE and right sided iliac DVT. Denies CP or SOB. No leg swelling or pain in legs. No clear provocation to this event. Exam reveals hemodynamic stability with NAD. No evidence of heart failure. Examines as euvolemic and no cardiac murmur heard. S1/2 heard with reg rate and rhythm. Lungs are clear to auscultation throughout. No chest wall TTP. No pain to palpation of legs. Skin is warm and dry without rashes. Labs/meds/imaging reviewed. Cont with heparin and pain control as needed. Pulm consult recommends BNP. Followup imaging in 4 weeks recommended and outpatient hematology. DO Karig (4) MDD (major depressive disorder) Active/Remission status: remission status unspecified Major depression recurrence: unspecified whether recurrent Qualified Code(s): F32.9 - Major depressive disorder, single episode, unspecified
[2023-02-28] MEDS ORDERED: KETOROLAC TROMETHAMINE 15 MG/ML VIAL IV STA (12:20)
[2023-02-28] MEDS ORDERED: ALBUTEROL HFA 8 GM INHALER INH PRN (12:31)
--- NOTE | 2023-02-28 14:12 | Pulmonary Consultation ---
Date of Consultation February 28, 2023 Assessment & Plan (1) Pulmonary embolism and infarction: (2) Acute deep vein thrombosis (DVT) of iliac vein of right lower extremity: (3) Asthma: Plan IMPRESSION: 32-year-old male with no significant medical history who presents with findings of LEFT-sided pulmonary embolism with possible associated infarct. RECOMMENDATIONS: 1. Pulmonary embolism with infarct - CTA images reviewed. There does appear to be haziness appreciated in the LEFT lower lobe which certainly could be associated with an infarct process. No significant surrounding pleural effusion appreciated. Patient is hemodynamically stable at this time. He is saturating well on room air alone. He describes no symptoms of dyspnea on exertion. Troponin is not elevated. CT demonstrates no findings consistent with heart strain. Would order BNP to assess for possibility of underlying RIGHT-sided heart dysfunction in the setting of pulmonary embolism, however his symptoms likely do not point to this. Initiating the patient on DOAC therapy sooner rather than later. Coagulation studies had been ordered by primary service. Patient certainly could follow-up with hematology in the outpatient setting as the patient likely represents an unprovoked pulmonary embolism with associated iliac DVT and argument could be made for lifelong anticoagulation therapy. This may be handled best by them in the outpatient setting moving forward. Otherwise, would recommend follow-up CT noncontrast of the chest in the next 2 to 3 months to evaluate for resolution of LEFT lower lobe process. Uncertain of utility of echocardiogram and hemodynamically stable patient. BNP may actually be helpful and solidify need to not order echocardiogram as well. Otherwise, would continue with DOAC therapy for the next 3 months with strong recommendation for lifelong anticoagulation, but again this could be deferred to hematology moving forward. Again, thankfully, the patient remains hemodynamically stable with heart rate in the 70s and saturating well on room air at this time. Clinically, the patient is stable. Certainly, if there were to be clinical deterioration, patient may warrant thrombolytic therapy, however certainly not warranted at this juncture. 2. Asthma - Patient carried previous diagnosis from his primary care provider's office. Symptoms are well controlled this time. He uses rescue inhaler maybe once every few months. He is not on a maintenance inhaler at this time. Continue with management per outpatient primary care services. Thank you for allowing us to participate in the care of this pleasant patient. Supervising Physician Co-Signing Physician Notes Patient seen and examined. EMR reviewed. Images were independently reviewed. Discussed with BARBER and agree with assessment plan as noted. Appears to be idiopathic PE without significant hemodynamic compromise. Continue anticoagulation. Okay to transition to DOAC. Biomarkers have been negative however he does have iliofemoral clot which raises the risk of complications. Would recommend at least 3 months of anticoagulation although again case could be made for lifelong indefinite anticoagulation. Following up with hematology in the outpatient setting to exclude potential inherited thrombophilia or acquired thrombophilia might be appropriate. Consideration for follow-up chest x-ray to follow the patchy parenchymal lower lobe process on the left is recommended in about 4 weeks. If the patient does well over the next 24 to 48 hours she can likely be dismissed from the hospital with follow-up with hematology oncology and with his outpatient providers. Thanks for the opportunity of participating in the care of this patient. Feel free to contact us with questions or concerns. Pulmonary will sign off at this point time. History of Present Illness Reason for Consultation: LLE PE with Pulm Infarct Requesting Physician: Denise Campbell PA-C Attending Physician: Jolene Cornell, History of Present Illness Patient is a 32-year-old male with significant past medical history of asthma, depression, and anxiety who presented to the emergency department with complain ts of LEFT-sided flank and rib pain. Patient reports the pain is worse with deep inspiration. He underwent extensive evaluation including CTA which demonstrated findings of LEFT lower lobe distribution of pulmonary embolism with possible associated infarct. He was started on a heparin drip and admitted to medicine for continued management. Pulmonary medicine consulted for further recommendations. Upon evaluation in room C3, the patient is awake, alert, and oriented. He reports that he has had no recent long distance travel, use of supplements or hormonal therapies, smoking history, family history of clotting disorders, or personal history of malignancy. He describes no recent upper respiratory symptoms. Specifically, he denies complaints of recent fevers, cough, shortness of breath, or hemoptysis. He states that his symptoms were relatively abrupt in onset and described as discomfort in his mid back, chest, and ribs. His pain is not reproducible with palpation. It is worse with deep inspiration. He describes no dyspnea on exertion. He offers no GI complaints. Allergies Allergy/AdvReac Type Severity Reaction Status Date / Time animal dander Allergy Intermediate ITCY EYES, Verified 06/24/19 15:22 SNEEZING, CONGESTION house dust Allergy Intermediate ITCHY Verified 02/28/23 10:05 EYES, SNEEZING, CONGESTION pollen extracts Allergy Intermediate ITCHY Verified 06/24/19 15:22 EYES, SNEEZING, CONGESTION Home Medications Medication Instructions Recorded Confirmed Type sertraline 100 mg tablet 200 mg PO QAM 06/24/19 02/28/23 History albuterol sulfate 90 mcg/actuation 2 puff inhalation Q4H PRN Wheezing 02/28/23 02/28/23 History aerosol inhaler apixaban 5 mg tablet (Eliquis) 5 mg PO BID #60 tabs 02/28/23 Rx apixaban 5 mg tablet (Eliquis) 10 mg (2 x 5 mg) PO BID #28 tabs 02/28/23 Rx aripiprazole 5 mg tablet 7.5 mg PO DAILY 02/28/23 02/28/23 History clonazepam 0.5 mg tablet 0.5 mg PO BID 02/28/23 02/28/23 History guanfacine 1 mg tablet 1 mg PO HS 02/28/23 02/28/23 History Patient History Medical History (Updated 02/28/23 @ 15:55 by Navjot Merchant PA-C) ADHD (attention deficit hyperactivity disorder), combined type FRANCOIS (generalized anxiety disorder) MDD (major depressive disorder) Mild intermittent asthma Hx of migraines Surgical History History of dental surgery Family History (Updated 02/28/23 @ 11:02 by Denise Campbell PA-C) Grandmother (Maternal) Deep vein thrombosis Other Cancer Diabetes Hypertension Social History (Updated 02/28/23 @ 11:04 by Denise Campbell PA-C) Smoking Status: Never smoker Second Hand Exposure: No; Do You Dip or Chew Tobacco: No; Tobacco Cessation Education Requested by Patient: No Hx Alcohol Use: Yes Alcohol Intake Frequency: 2-4 x/Month Hx Substance Use: Yes Prescribed Medications: Marijuana Last Used Substance: Unknown Substance Use Type Other:: medical marijuana Preferred Language: Mongolian Communication Ability: Effective Visual Impairment: No Limitations Hearing Ability: Normal Eb[employer] Reseller Required: No Beliefs That Will Affect Care: None Current Living Situation: Spouse Current Living Situation Comment: Lives with spouse and son current occupational status: employed Other Information That Helps Us Care for You: No Feels Safe at Home: Yes Safety Concerns: Feels Safe At This Time Assistive Devices: None Review of Systems Review of Systems: A complete 10 point review of systems was reviewed with the patient with pertinent positives and negatives as per history of present illness. All else were negative. Physical Exam Physical Exam: VITAL SIGNS - Vital signs and nursing notes were reviewed. GENERAL - 32-year-old male appearing his stated age who is in no acute distress. Communicates well with provider and answers questions appropriately. SKIN - Without rashes or lesions. NOSE - Midline and without cyanosis. MOUTH/OROPHARYNX - Without perioral cyanosis. NECK - Neck with FROM. LUNGS - Chest wall evaluation demonstrates normal chest wall A:P diameter. Auscultation reveals clear breath sounds without wheezes, rales, or rhonchi. CARDIAC - RRR with S1/S2. No murmur, rubs, or gallops appreciated. ABDOMEN - Abdominal inspection demonstrates a flat abdomen. BS normoactive all four quadrants. No tenderness, palpable masses, or ascites noted. EXTREMITIES - Nail clubbing not present. No peripheral cyanosis. No pretibial edema present. +3/5 radial palpated throughout. PSYCH - A&Ox3 and cooperates fully with examiner. Pt is very pleasant and interacts well with examiner. Results & Data Results & Data Vital Signs (Past 12 Hours) Vital Signs Temp Pulse Pulse Resp BP BP Pulse Ox 02/28/23 13:22 78 18 118/80 93 02/28/23 12:14 66 16 98 02/28/23 12:14 66 16 119/71 98 02/28/23 10:50 63 13 96 02/28/23 10:40 65 13 96 02/28/23 10:30 68 16 97 02/28/23 10:20 64 14 96 02/28/23 10:10 72 13 96 02/28/23 10:00 67 14 96 02/28/23 09:50 71 14 96 02/28/23 09:40 65 13 96 02/28/23 09:30 78 15 96 02/28/23 09:20 69 15 97 02/28/23 09:19 68 02/28/23 09:17 67 15 96 02/28/23 09:00 66 18 109/99 99 02/28/23 08:03 100 02/28/23 08:02 100 02/28/23 07:03 37.0 C 88 16 125/77 96 O2 Del Method 02/28/23 13:22 Room Air 02/28/23 12:14 Room Air 02/28/23 12:14 Room Air 02/28/23 10:50 02/28/23 10:40 02/28/23 10:30 02/28/23 10:20 02/28/23 10:10 02/28/23 10:00 02/28/23 09:50 02/28/23 09:40 02/28/23 09:30 02/28/23 09:20 02/28/23 09:19 02/28/23 09:17 02/28/23 09:00 02/28/23 08:03 Room Air 02/28/23 08:02 Room Air 02/28/23 07:03 Room Air PG Care Time/CCT Total # of Minutes Spent Total Time Spent with Patient: Total time spent is greater than 50% in coordination of care (as documented) at patient's floor/unit and/or counseling patient: Coding Level of Care Code 29540 IN/OBS CONSULT LVL 4,60M Diagnoses Pulmonary embolism and infarction I26.99 Acute deep vein thrombosis (DVT) of iliac vein of right lower extremity I82.421 Asthma J45.909
[2023-02-28 17:14] LABS: Partial Thromboplastin Ratio 2.4
[2023-02-28 17:21] LABS: Partial Thromboplastin Time 66.9 Seconds (21.0-31.0)
[2023-02-28] MEDS: oxyCODONE HCL IR 5 MG TAB (IMMEDIATE RELEASE) PO PRN (21:41)
[2023-02-28] MEDS: clonazePAM 0.5 MG TAB PO SCH (21:41)
[2023-03-01] MEDS: guanFACINE HCL 1 MG TAB PO SCH ×2 (00:23→20:28)
[2023-03-01] MEDS: MoRPHine SULFATE 2 MG/ML CARP IV PRN ×3 (01:04→14:14)
[2023-03-01] MEDS: HEPARIN SODIUM/DEXTROSE 25,000 UNITS/500 ML BAG IV SCH (02:56)
[2023-03-01] MEDS: oxyCODONE HCL IR 5 MG TAB (IMMEDIATE RELEASE) PO PRN (04:03)
[2023-03-01] MEDS ORDERED: KETOROLAC TROMETHAMINE 15 MG/ML VIAL IV ONE (05:24)
[2023-03-01 06:06] LABS: Hematocrit (blood only) 38.4 % (42.0-52.0); Hemoglobin 13.3 g/dl (14.0-18.0); Mean Corpuscular Hemoglobin 30.5 pg (25.0-34.0); Mean Corpuscular Hgb Conc 34.6 g/dL (32.0-36.0); Mean Corpuscular Volume 88.1 fL (80.0-100.0); Mean Platelet Volume 9.5 fL (9.4-12.4); Platelet Count 167 K/uL (130-400); RDW Coefficient of Variation 12.8 % (11.5-14.5); RDW Standard Deviation 41.4 fL (36.4-46.3); Red Blood Count 4.36 M/uL (4.70-6.10); White Blood Count 10.35 K/ul (4.8-10.8)
[2023-03-01 06:24] LABS: BUN Creatinine Ratio 16.1 (10-20); Calcium 9.3 mg/dl (8.6-10.3); Creatinine Clr Calc Pharmacy 91.8 ml/min; Est GFR (African American) 93.4 ml/min; Est GFR (Non-African American) 80.6 ml/min; Potassium 3.7 mmol/L (3.5-5.1)
[2023-03-01] MEDS: LIDOCAINE 5% 1 PATCH TD SCH (06:39)
[2023-03-01 06:42] LABS: Partial Thromboplastin Ratio 1.8
[2023-03-01 06:45] LABS: Partial Thromboplastin Time 50.7 Seconds (21.0-31.0)
[2023-03-01] MEDS: ARIPiprazole 5 MG TAB PO SCH (08:16)
[2023-03-01] MEDS: SERTRALINE HCL 100 MG TABLET PO SCH (08:17)
[2023-03-01] MEDS: clonazePAM 0.5 MG TAB PO SCH ×2 (08:19→20:28)
[2023-03-01] MEDS: APIXABAN 5 MG TABLET PO SCH ×2 (09:35→20:27)
--- NOTE | 2023-03-01 13:39 | Hospitalist Progress Note ---
Date of Service March 01, 2023 Assessment & Plan (1) Pulmonary embolism and infarction: (2) Acute deep vein thrombosis (DVT) of iliac vein of right lower extremity: Plan: This is a 32 y/o male with mild intermittent asthma, FRANCOIS, and MDD who presented to the ED today with left chest and left mid-back pain for 1 day. Work-up in the ED revealed an elevated D-Dimer >4000 so pt underwent CTA chest that revealed a LLL PE with infarct. Additional imaging revealed right iliac vein thrombosis. No specific inciting event, question of a family history of DVT in his maternal grandmother. CTA chest personally reviewed; left lower lobe pulmonary embolus. Will switch over to Eliquis from heparin drip. Wean off oxygen as tolerated to keep SpO2 above 90% Pain control with lidocaine patch, oxycodone and morphine. Will need outpatient hematology referral. Hypercoagulable workup was sent on admission. (3) FRANCOIS (generalized anxiety disorder): (4) MDD (major depressive disorder): Plan: On clonazepam, aripiprazole (5) ADHD (attention deficit hyperactivity disorder), combined type: (6) Asthma: Plan: Not on exacerbation. On albuterol as needed Plan Full code DVT prophylaxis Eliquis Dispositionadmitted with DVT with PE along with infarct. Need to wean down ox ygen as tolerated. Pain control. Potential DC in a.m. Time spent evaluating patient, direct bedside care, chart review, placing orders, interpretation of diagnostic studies, discussion with consultants, patient, and family members, as well as other required patient management activities is 50 minutes Please note the above document was generated using voice recognition software. It may contain grammatical, syntax or spelling errors. Any formal questions or concerns about the content, text or information contained within the body of this dictation should be directly addressed to the provider for clarification Admission and Anticipated Discharge Date Admission Date: February 28, 2023 Subjective Patient seen and examined at bedside. He reports that the chest pain has improved compared to yesterday. He is placed on oxygen by nasal cannula at 3 L/min. Review of Systems Review of Systems: All systems reviewed & are unremarkable except as noted in Subjective Physical Exam Physical Exam: General: awake, alert, NAD, appears stated age HEENT: no scleral icterus, +moist oral mucosa Neck: trachea midline Heart: RRR, no M/G/R Lungs: clear though diminished due to limited inspiratory effort Abd: soft, NT, ND, +BS Extremities: no pedal edema, no calf pain Skin: no jaundice, no rashes; warm and dry Neuro: moving all extremities, no focal deficits, no dysarthria or confusion Results & Data Results & Data Vital Signs (Past 12 Hours) Vital Signs Temp Pulse Resp BP Pulse Ox O2 Del Method O2 Flow Rate 03/01/23 10:09 36.7 C 78 21 96/70 L 99 Nasal Cannula 3 03/01/23 08:00 Nasal Cannula 2 03/01/23 07:31 37.1 C 84 19 122/87 93 Room Air 03/01/23 03:42 37.8 C H 99 H 18 124/82 97 Room Air Laboratory Results Laboratory Results WBC 10.35 K/ul (4.8-10.8) 03/01/23 05:38 RBC 4.36 M/uL (4.70-6.10) L 03/01/23 05:38 Hgb 13.3 g/dl (14.0-18.0) L 03/01/23 05:38 Hct 38.4 % (42.0-52.0) L 03/01/23 05:38 MCV 88.1 fL (80.0-100.0) 03/01/23 05:38 MCH 30.5 pg (25.0-34.0) 03/01/23 05:38 MCHC 34.6 g/dL (32.0-36.0) 03/01/23 05:38 RDW Std Deviation 41.4 fL (36.4-46.3) 03/01/23 05:38 RDW Coeff of [place]ma 12.8 % (11.5-14.5) 03/01/23 05:38 Plt Count 167 K/uL (130-400) 03/01/23 05:38 MPV 9.5 fL (9.4-12.4) 03/01/23 05:38 Immature Gran % (Auto) 0.3 % 02/28/23 07:45 Neut % (Auto) 81.7 % 02/28/23 07:45 Lymph % (Auto) 10.2 % 02/28/23 07:45 [place] % (Auto) 6.5 % 02/28/23 07:45 Eos % (Auto) 1.0 % 02/28/23 07:45 Baso % (Auto) 0.3 % 02/28/23 07:45 Neut # (Auto) 10.44 K/uL (1.40-6.50) H 02/28/23 07:45 Lymph # (Auto) 1.30 K/uL (1.20-3.40) 02/28/23 07:45 [place] # (Auto) 0.83 K/uL (0.11-0.59) H 02/28/23 07:45 Eos # (Auto) 0.13 K/uL (0.00-0.50) 02/28/23 07:45 Baso # (Auto) 0.04 K/uL (0.00-0.20) 02/28/23 07:45 Immature Gran # (Auto) 0.04 K/uL (0.01-0.20) 02/28/23 07:45 PT 11.0 Seconds (9.0-12.0) 02/28/23 07:45 INR 1.0 (0.9-1.1) 02/28/23 07:45 APTT 50.7 Seconds (21.0-31.0) H* 03/01/23 05:52 PTT Ratio 1.8 03/01/23 05:52 D-Dimer 4450 ug/L FEU (0-500) H* 02/28/23 07:45 Sodium 136 mmol/L (136-145) 03/01/23 05:38 Potassium 3.7 mmol/L (3.5-5.1) 03/01/23 05:38 Chloride 101 mmol/L (98-107) 03/01/23 05:38 Carbon Dioxide 27 mmol/L (21-32) 03/01/23 05:38 Anion Gap 8 (3-11) 03/01/23 05:38 BUN 19 mg/dl (6-23) 03/01/23 05:38 Creatinine 1.18 mg/dl (0.6-1.4) 03/01/23 05:38 Est Cr Clr Drug Dosing 91.8 ml/min 03/01/23 05:38 Est GFR ( Amer) 93.4 ml/min 03/01/23 05:38 Est GFR (Non-Af Amer) 80.6 ml/min 03/01/23 05:38 BUN/Creatinine Ratio 16.1 (10-20) 03/01/23 05:38 Glucose 140 mg/dl (70-99(Fasting)) H 03/01/23 05:38 Calcium 9.3 mg/dl (8.6-10.3) 03/01/23 05:38 Total Bilirubin 0.6 mg/dl (0.2-1.0) 02/28/23 07:45 AST 14 U/L (13-39) 02/28/23 07:45 ALT 22 U/L (7-52) 02/28/23 07:45 Alkaline Phosphatase 114 U/L (34-104) H 02/28/23 07:45 Troponin I High Sens 2.8 pg/ml (0-20) 02/28/23 07:45 B-Natriuretic Peptide 12 pg/ml (0-100) 02/28/23 15:58 Total Protein 7.7 gm/dl (6.0-8.3) 02/28/23 07:45 Albumin 4.8 gm/dl (3.4-5.0) 02/28/23 07:45 Globulin 2.9 gm/dl (2.5-4.0) 02/28/23 07:45 Albumin/Globulin Ratio 1.7 (0.9-2) 02/28/23 07:45 Lipase 9 U/L (11-82) L 02/28/23 07:45 Urine Color Yellow 02/28/23 09:09 Urine Appearance Clear (Clear) 02/28/23 09:09 Urine pH 5.5 (4.5-7.5) 02/28/23 09:09 Ur Specific [place] 1.023 (1.000-1.030) 02/28/23 09:09 Urine Protein Negative (Negative) 02/28/23 09:09 Urine Glucose (UA) Negative (Negative) 02/28/23 09:09 Urine Ketones Negative (Negative) 02/28/23 09:09 Urine Blood Negative (Negative) 02/28/23 09:09 Urine Nitrite Negative (Negative) 02/28/23 09:09 Urine Bilirubin Negative (Negative) 02/28/23 09:09 Urine Urobilinogen Negative (Negative) 02/28/23 09:09 Ur Leukocyte Esterase Negative (Negative) 02/28/23 09:09 Impressions Chest X-Ray 02/28/23 07:36 SINGLE VIEW CHEST CLINICAL HISTORY: Atypical chest pain. Left flank pain FINDINGS: An AP, portable, upright chest radiograph is compared to study dated 06/24/2019. The cardiomediastinal silhouette is unremarkable. There is left basilar atelectasis. The lungs and pleural spaces are otherwise clear. No pneumothorax is seen. The bony thorax is grossly intact. IMPRESSION: No acute cardiopulmonary abnormality. ACT 112: Negative or not required by law. Electronically signed by: Cullen Lance M.D. 02/28/2023 8:09 AM Abdomen/Pelvis CT 02/28/23 08:33 CT SCAN OF THE ABDOMEN AND PELVIS WITH IV CONTRAST CLINICAL HISTORY: Left flank pain. COMPARISON STUDY: No priors. TECHNIQUE: Following the IV administration of 116 cc of Optiray 320, CT scan of the abdomen and pelvis is performed from the lung bases to the proximal femora. Images are reviewed in the axial, sagittal, and coronal planes. IV contrast was administered without complication. A dose lowering technique was utilized adhering to the principles of ALARA. FINDINGS: Lung bases: The heart is normal in size and without pericardial effusion. There is airspace consolidation at the left lung base and trace left pleural effusion. Segmental in subsegmental pulmonary emboli are seen within branches of the left lower lobe pulmonary artery. There are also pulmonary emboli within branches of the right lower lobe pulmonary artery. Liver: The contrast-enhanced liver is normal in size, contour, and attenuation. There is no intrahepatic biliary ductal dilatation. The hepatic veins and portal veins are patent. There are at least 3 hepatic hemangiomas which measure up to 2.1 cm. Gallbladder: Unremarkable. Spleen: The spleen is mildly enlarged measuring 14.2 cm in length. Pancreas: Unremarkable. Adrenal glands: Unremarkable. Kidneys: The contrast enhanced kidneys are normal in size and without hydronephrosis. The kidneys enhance symmetrically. Abdominal vasculature: The abdominal aorta is normal in course and caliber. There is deep venous thrombosis identified in the right iliac vein serial axial images #[id number]. No thrombus is seen within the IVC.1 Bowel: There is no bowel obstruction. The appendix is well-visualized and normal. Peritoneum: There is no intraperitoneal free air or abdominal ascites. Lymphadenopathy: None. Pelvic viscera: The bladder, prostate, and seminal vesicles are normal as imaged. There are bilateral fat-containing inguinal hernias. Skeletal structures: No lytic or blastic lesions are seen. IMPRESSION: 1. Segmental and subsegmental pulmonary emboli are seen within branches of the lower lobe pulmonary arteries, left greater than right. 2. Left basilar consolidation likely represents a pulmonary infarct and there is trace left pleural effusion. 3. Right iliac vein deep venous thrombosis. 4. Mild splenomegaly. 5. Additional findings as above. ACT 112: Negative or not required by law. Electronically signed by: Cullen Lance M.D. 02/28/2023 9:09 AM Chest CTA 02/28/23 08:33 CT angio chest PE protocol CLINICAL HISTORY: +dimer, left chest/flank pain TECHNIQUE: Multidetector row helical CT of the chest was performed with angiographic protocol. Coronal and sagittal reformations were obtained. Coronal and sagittal MIPS were obtained from the axial data set and were submitted for review. Automated dose lowering techniques and/or adjustment according to patient size were utilized for this exam. CT DOSE: 1887.98 mGy.cm Comparison: Comparison is made to chest radiograph 02/28/2023 FINDINGS: Lungs and pleura: Opacity is seen in the left lower lung which may represent pulmonary infarct. Heart and pericardium: Heart size is normal. No pericardial effusion. Vessels: Lobar, segmental, and subsegmental emboli are seen in the left lower lobe. A few segmental and smaller emboli are seen elsewhere the lung, evaluation is limited by suboptimal contrast timing. Mediastinum and kim: Subcentimeter lymph nodes are seen. Chest wall and lower neck: Unremarkable. Abdomen: Unremarkable. Bones: Unremarkable. IMPRESSION: Predominantly left lower lobar pulmonary embolus results in pulmonary infarct. ACT 112: Negative or not required by law. Electronically signed by: Judah Addison M.D. 02/28/2023 9:12 AM (4) MDD (major depressive disorder) Major depression recurrence: unspecified whether recurrent Active/Remission status: remission status unspecified Qualified Code(s): F32.9 - Major depressive disorder, single episode, unspecified
[2023-03-01] MEDS: KETOROLAC TROMETHAMINE 15 MG/ML VIAL IV PRN ×2 (15:08→21:22)
--- NOTE | 2023-03-02 06:24 | Electrocardiogram Report ---
Test Reason : Blood Pressure : / mmHG Vent. Rate : 080 BPM Atrial Rate : 080 BPM P-R Int : 152 ms QRS Dur : 090 ms QT Int : 370 ms P-R-T Axes : 056 034 028 degrees QTc Int : 426 ms Normal sinus rhythm Normal ECG When compared with ECG of 24-JUN-2019 14:42, No significant change was found Confirmed by Jostin Escobar ([id number]) on 03/02/2023 6:24:33 AM Referred By: REFERRED SELF Confirmed By:Jostin Escobar
[2023-03-02 07:08] LABS: Basophils # (auto) 0.03 K/uL (0.00-0.20); Basophils % (auto) 0.3 %; Eosinophils # (auto) 0.09 K/uL (0.00-0.50); Eosinophils % (auto) 0.9 %; Hematocrit (blood only) 34.8 % (42.0-52.0); Immature Granulocytes # (auto) 0.04 K/uL (0.01-0.20); Immature Granulocytes % (auto) 0.4 %; Lymphocytes # (auto) 1.04 K/uL (1.20-3.40); Lymphocytes % (auto) 10.6 %; Mean Corpuscular Hemoglobin 30.5 pg (25.0-34.0); Mean Corpuscular Hgb Conc 34.5 g/dL (32.0-36.0); Mean Corpuscular Volume 88.3 fL (80.0-100.0); Mean Platelet Volume 9.4 fL (9.4-12.4); Monocytes % (auto) 8.2 %; Neutrophils # (auto) 7.79 K/uL (1.40-6.50); Neutrophils % (auto) 79.6 %; Platelet Count 165 K/uL (130-400); RDW Coefficient of Variation 12.5 % (11.5-14.5); RDW Standard Deviation 40.2 fL (36.4-46.3); Red Blood Count 3.94 M/uL (4.70-6.10); White Blood Count 9.79 K/ul (4.8-10.8)
[2023-03-02 07:28] LABS: Creatinine Clr Calc Pharmacy 108.5 ml/min; Est GFR (African American) 114.1 ml/min; Est GFR (Non-African American) 98.5 ml/min; Potassium 3.9 mmol/L (3.5-5.1)
--- NOTE | 2023-03-02 08:00 | Electrocardiogram Report ---
Test Reason : Blood Pressure : / mmHG Vent. Rate : 102 BPM Atrial Rate : 102 BPM P-R Int : 138 ms QRS Dur : 088 ms QT Int : 330 ms P-R-T Axes : 049 028 033 degrees QTc Int : 430 ms Sinus tachycardia Otherwise normal ECG When compared with ECG of 28-FEB-2023 07:58, No significant change was found Confirmed by Jostin Escobar ([id number]) on 03/02/2023 8:00:26 AM Referred By: REFERRED SELF Confirmed By:Jostin Escobar
[2023-03-02] MEDS ORDERED: ACETAMINOPHEN 325 MG TAB PO STA (08:30)
[2023-03-02] MEDS: oxyCODONE HCL IR 5 MG TAB (IMMEDIATE RELEASE) PO PRN (08:38)
[2023-03-02] MEDS: clonazePAM 0.5 MG TAB PO SCH ×2 (08:38→19:33)
[2023-03-02] MEDS: APIXABAN 5 MG TABLET PO SCH ×2 (08:39→19:30)
[2023-03-02] MEDS: SERTRALINE HCL 100 MG TABLET PO SCH (08:39)
[2023-03-02] MEDS: ARIPiprazole 5 MG TAB PO SCH (08:40)
[2023-03-02] MEDS ORDERED: ACETAMINOPHEN 325 MG TAB PO PRN (08:49)
[2023-03-02] MEDS: LIDOCAINE 5% 1 PATCH TD SCH (09:10)
--- NOTE | 2023-03-02 12:19 | Hospitalist Progress Note ---
Date of Service March 02, 2023 Assessment & Plan (1) Pulmonary embolism and infarction: (2) Acute deep vein thrombosis (DVT) of iliac vein of right lower extremity: Plan: This is a 32 y/o male with mild intermittent asthma, FRANCOIS, and MDD who presented to the ED today with left chest and left mid-back pain for 1 day. Work-up in the ED revealed an elevated D-Dimer >4000 so pt underwent CTA chest that revealed a LLL PE with infarct. Additional imaging revealed right iliac vein thrombosis. No specific inciting event, question of a family history of DVT in his maternal grandmother. CTA chest personally reviewed; left lower lobe pulmonary embolus. Patient had an episode of fever today morning. Will obtain blood culture. The likely source of the fever is pulmonary embolism. Will hold off on any antibiotics for the time being. Continue on Eliquis. Monitor oxygen status; supplemental oxygen if SpO2 is less than 90%. Pain control with lidocaine patch, oxycodone and morphine. Will need outpatient hematology referral. Hypercoagulable workup was sent on admission. (3) FRANCOIS (generalized anxiety disorder): (4) MDD (major depressive disorder): Plan: On clonazepam, aripiprazole (5) ADHD (attention deficit hyperactivity disorder), combined type: (6) Asthma: Plan: Not on exacerbation. On albuterol as needed Plan Full code DVT prophylaxis Eliquis Dispositionadmitted with DVT with PE along with infarct. Patient was febrile today morning; blood cultures are sent as part of infectious workup. Discussed with patient's significant other at bedside. Answered questions/queries Please note the above document was generated using voice recognition software. It may contain grammatical, syntax or spelling errors. Any formal questions or concerns about the content, text or information contained within the body of this dictation should be directly addressed to the provider for clarification Admission and Anticipated Discharge Date Admission Date: February 28, 2023 Subjective Patient seen and examined at bedside. He reports shortness of breath will be evaluated.. Febrile to 39.2 C in AM. Review of Systems Review of Systems: All systems reviewed & are unremarkable except as noted in Subjective Physical Exam Physical Exam: General: awake, alert, NAD, appears stated age HEENT: no scleral icterus, +moist oral mucosa Neck: trachea midline Heart: RRR, no M/G/R Lungs: clear though diminished due to limited inspiratory effort Abd: soft, NT, ND, +BS Extremities: no pedal edema, no calf pain Skin: no jaundice, no rashes; warm and dry Neuro: moving all extremities, no focal deficits, no dysarthria or confusion Results & Data Results & Data Vital Signs (Past 12 Hours) Vital Signs Temp Pulse Pulse Resp BP Pulse Ox O2 Del Method 03/02/23 12:00 36.9 C 106 H 16 109/81 91 Nasal Cannula 03/02/23 08:21 39.2 C H 115 H 18 119/82 92 Room Air 03/02/23 07:00 107 H 03/02/23 04:44 36.9 C 101 H 16 114/82 91 Room Air 03/02/23 02:54 96 H O2 Flow Rate 03/02/23 12:00 2.0 03/02/23 08:21 03/02/23 07:00 03/02/23 04:44 03/02/23 02:54 Laboratory Results Laboratory Results WBC 9.79 K/ul (4.8-10.8) 03/02/23 06:05 RBC 3.94 M/uL (4.70-6.10) L 03/02/23 06:05 Hgb 12.0 g/dl (14.0-18.0) L 03/02/23 06:05 Hct 34.8 % (42.0-52.0) L 03/02/23 06:05 MCV 88.3 fL (80.0-100.0) 03/02/23 06:05 MCH 30.5 pg (25.0-34.0) 03/02/23 06:05 MCHC 34.5 g/dL (32.0-36.0) 03/02/23 06:05 RDW Std Deviation 40.2 fL (36.4-46.3) 03/02/23 06:05 RDW Coeff of [place]ma 12.5 % (11.5-14.5) 03/02/23 06:05 Plt Count 165 K/uL (130-400) 03/02/23 06:05 MPV 9.4 fL (9.4-12.4) 03/02/23 06:05 Immature Gran % (Auto) 0.4 % 03/02/23 06:05 Neut % (Auto) 79.6 % 03/02/23 06:05 Lymph % (Auto) 10.6 % 03/02/23 06:05 [place] % (Auto) 8.2 % 03/02/23 06:05 Eos % (Auto) 0.9 % 03/02/23 06:05 Baso % (Auto) 0.3 % 03/02/23 06:05 Neut # (Auto) 7.79 K/uL (1.40-6.50) H 03/02/23 06:05 Lymph # (Auto) 1.04 K/uL (1.20-3.40) L 03/02/23 06:05 [place] # (Auto) 0.80 K/uL (0.11-0.59) H 03/02/23 06:05 Eos # (Auto) 0.09 K/uL (0.00-0.50) 03/02/23 06:05 Baso # (Auto) 0.03 K/uL (0.00-0.20) 03/02/23 06:05 Immature Gran # (Auto) 0.04 K/uL (0.01-0.20) 03/02/23 06:05 PT 11.0 Seconds (9.0-12.0) 02/28/23 07:45 INR 1.0 (0.9-1.1) 02/28/23 07:45 APTT 50.7 Seconds (21.0-31.0) H* 03/01/23 05:52 PTT Ratio 1.8 03/01/23 05:52 D-Dimer 4450 ug/L FEU (0-500) H* 02/28/23 07:45 Sodium 137 mmol/L (136-145) 03/02/23 06:05 Potassium 3.9 mmol/L (3.5-5.1) 03/02/23 06:05 Chloride 102 mmol/L (98-107) 03/02/23 06:05 Carbon Dioxide 27 mmol/L (21-32) 03/02/23 06:05 Anion Gap 8 (3-11) 03/02/23 06:05 BUN 16 mg/dl (6-23) 03/02/23 06:05 Creatinine 1.00 mg/dl (0.6-1.4) 03/02/23 06:05 Est Cr Clr Drug Dosing 108.5 ml/min 03/02/23 06:05 Est GFR ( Amer) 114.1 ml/min 03/02/23 06:05 Est GFR (Non-Af Amer) 98.5 ml/min 03/02/23 06:05 BUN/Creatinine Ratio 16.0 (10-20) 03/02/23 06:05 Glucose 114 mg/dl (70-99(Fasting)) H 03/02/23 06:05 Calcium 9.0 mg/dl (8.6-10.3) 03/02/23 06:05 Total Bilirubin 0.6 mg/dl (0.2-1.0) 02/28/23 07:45 AST 14 U/L (13-39) 02/28/23 07:45 ALT 22 U/L (7-52) 02/28/23 07:45 Alkaline Phosphatase 114 U/L (34-104) H 02/28/23 07:45 Troponin I High Sens 2.8 pg/ml (0-20) 02/28/23 07:45 B-Natriuretic Peptide 12 pg/ml (0-100) 02/28/23 15:58 Total Protein 7.7 gm/dl (6.0-8.3) 02/28/23 07:45 Albumin 4.8 gm/dl (3.4-5.0) 02/28/23 07:45 Globulin 2.9 gm/dl (2.5-4.0) 02/28/23 07:45 Albumin/Globulin Ratio 1.7 (0.9-2) 02/28/23 07:45 Lipase 9 U/L (11-82) L 02/28/23 07:45 Urine Color Yellow 02/28/23 09:09 Urine Appearance Clear (Clear) 02/28/23 09:09 Urine pH 5.5 (4.5-7.5) 02/28/23 09:09 Ur Specific [place] 1.023 (1.000-1.030) 02/28/23 09:09 Urine Protein Negative (Negative) 02/28/23 09:09 Urine Glucose (UA) Negative (Negative) 02/28/23 09:09 Urine Ketones Negative (Negative) 02/28/23 09:09 Urine Blood Negative (Negative) 02/28/23 09:09 Urine Nitrite Negative (Negative) 02/28/23 09:09 Urine Bilirubin Negative (Negative) 02/28/23 09:09 Urine Urobilinogen Negative (Negative) 02/28/23 09:09 Ur Leukocyte Esterase Negative (Negative) 02/28/23 09:09 Impressions Chest X-Ray 02/28/23 07:36 SINGLE VIEW CHEST CLINICAL HISTORY: Atypical chest pain. Left flank pain FINDINGS: An AP, portable, upright chest radiograph is compared to study dated 06/24/2019. The cardiomediastinal silhouette is unremarkable. There is left basilar atelectasis. The lungs and pleural spaces are otherwise clear. No pneumothorax is seen. The bony thorax is grossly intact. IMPRESSION: No acute cardiopulmonary abnormality. ACT 112: Negative or not required by law. Electronically signed by: Cullen Lance M.D. 02/28/2023 8:09 AM Abdomen/Pelvis CT 02/28/23 08:33 CT SCAN OF THE ABDOMEN AND PELVIS WITH IV CONTRAST CLINICAL HISTORY: Left flank pain. COMPARISON STUDY: No priors. TECHNIQUE: Following the IV administration of 116 cc of Optiray 320, CT scan of the abdomen and pelvis is performed from the lung bases to the proximal femora. Images are reviewed in the axial, sagittal, and coronal planes. IV contrast was administered without complication. A dose lowering technique was utilized adhering to the principles of ALARA. FINDINGS: Lung bases: The heart is normal in size and without pericardial effusion. There is airspace consolidation at the left lung base and trace left pleural effusion. Segmental in subsegmental pulmonary emboli are seen within branches of the left lower lobe pulmonary artery. There are also pulmonary emboli within branches of the right lower lobe pulmonary artery. Liver: The contrast-enhanced liver is normal in size, contour, and attenuation. There is no intrahepatic biliary ductal dilatation. The hepatic veins and portal veins are patent. There are at least 3 hepatic hemangiomas which measure up to 2.1 cm. Gallbladder: Unremarkable. Spleen: The spleen is mildly enlarged measuring 14.2 cm in length. Pancreas: Unremarkable. Adrenal glands: Unremarkable. Kidneys: The contrast enhanced kidneys are normal in size and without hydronephrosis. The kidneys enhance symmetrically. Abdominal vasculature: The abdominal aorta is normal in course and caliber. There is deep venous thrombosis identified in the right iliac vein serial axial images #[id number]. No thrombus is seen within the IVC.1 Bowel: There is no bowel obstruction. The appendix is well-visualized and normal. Peritoneum: There is no intraperitoneal free air or abdominal ascites. Lymphadenopathy: None. Pelvic viscera: The bladder, prostate, and seminal vesicles are normal as imaged. There are bilateral fat-containing inguinal hernias. Skeletal structures: No lytic or blastic lesions are seen. IMPRESSION: 1. Segmental and subsegmental pulmonary emboli are seen within branches of the lower lobe pulmonary arteries, left greater than right. 2. Left basilar consolidation likely represents a pulmonary infarct and there is trace left pleural effusion. 3. Right iliac vein deep venous thrombosis. 4. Mild splenomegaly. 5. Additional findings as above. ACT 112: Negative or not required by law. Electronically signed by: Cullen Lanec M.D. 02/28/2023 9:09 AM Chest CTA 02/28/23 08:33 CT angio chest PE protocol CLINICAL HISTORY: +dimer, left chest/flank pain TECHNIQUE: Multidetector row helical CT of the chest was performed with angiographic protocol. Coronal and sagittal reformations were obtained. Coronal and sagittal MIPS were obtained from the axial data set and were submitted for review. Automated dose lowering techniques and/or adjustment according to patient size were utilized for this exam. CT DOSE: 1887.98 mGy.cm Comparison: Comparison is made to chest radiograph 02/28/2023 FINDINGS: Lungs and pleura: Opacity is seen in the left lower lung which may represent pulmonary infarct. Heart and pericardium: Heart size is normal. No pericardial effusion. Vessels: Lobar, segmental, and subsegmental emboli are seen in the left lower lobe. A few segmental and smaller emboli are seen elsewhere the lung, evaluation is limited by suboptimal contrast timing. Mediastinum and kim: Subcentimeter lymph nodes are seen. Chest wall and lower neck: Unremarkable. Abdomen: Unremarkable. Bones: Unremarkable. IMPRESSION: Predominantly left lower lobar pulmonary embolus results in pulmonary infarct. ACT 112: Negative or not required by law. Electronically signed by: Judah Addison M.D. 02/28/2023 9:12 AM (4) MDD (major depressive disorder) Major depression recurrence: unspecified whether recurrent Active/Remission status: remission status unspecified Qualified Code(s): F32.9 - Major depressive disorder, single episode, unspecified
[2023-03-02] MEDS: guanFACINE HCL 1 MG TAB PO SCH (19:31)
[2023-03-03] MEDS: oxyCODONE HCL IR 5 MG TAB (IMMEDIATE RELEASE) PO PRN (06:25)
[2023-03-03 06:31] LABS: Basophils # (auto) 0.05 K/uL (0.00-0.20); Basophils % (auto) 0.5 %; Eosinophils # (auto) 0.16 K/uL (0.00-0.50); Eosinophils % (auto) 1.6 %; Hematocrit (blood only) 34.7 % (42.0-52.0); Hemoglobin 12.1 g/dl (14.0-18.0); Immature Granulocytes # (auto) 0.03 K/uL (0.01-0.20); Immature Granulocytes % (auto) 0.3 %; Lymphocytes # (auto) 1.27 K/uL (1.20-3.40); Lymphocytes % (auto) 12.8 %; Mean Corpuscular Hemoglobin 30.2 pg (25.0-34.0); Mean Corpuscular Hgb Conc 34.9 g/dL (32.0-36.0); Mean Corpuscular Volume 86.5 fL (80.0-100.0); Mean Platelet Volume 9.3 fL (9.4-12.4); Monocytes # (auto) 0.79 K/uL (0.11-0.59); Neutrophils % (auto) 76.8 %; Platelet Count 185 K/uL (130-400); RDW Standard Deviation 38.8 fL (36.4-46.3); Red Blood Count 4.01 M/uL (4.70-6.10)
[2023-03-03 06:58] LABS: BUN Creatinine Ratio 14.3 (10-20); Calcium 9.5 mg/dl (8.6-10.3); Creatinine Clr Calc Pharmacy 110.7 ml/min; Est GFR (African American) 116.9 ml/min; Est GFR (Non-African American) 100.9 ml/min; Potassium 4.2 mmol/L (3.5-5.1)
[2023-03-03] MEDS: clonazePAM 0.5 MG TAB PO SCH (08:59)
[2023-03-03] MEDS: ARIPiprazole 5 MG TAB PO SCH (09:00)
[2023-03-03] MEDS: APIXABAN 5 MG TABLET PO SCH (09:00)
[2023-03-03] MEDS: LIDOCAINE 5% 1 PATCH TD SCH (09:00)
[2023-03-03] MEDS: SERTRALINE HCL 100 MG TABLET PO SCH (09:01)
--- NOTE | 2023-03-03 13:09 | Discharge Summary ---
Date of Service March 03, 2023 Admission HPI Per Admitting Provider This is a 32 y/o male with mild intermittent asthma, FRANCOIS, and MDD who presented to the ED today with left chest and left mid-back pain since last evening. Pt reports being in his usual state of health yesterday. Around 8-9 pm last evening, he had the sudden onset of stabbing left mid-back pain. He went to bed and was able to sleep. However, this morning the pain was more severe and now present in his left lower chest as well. The pain was present constantly but worse with taking deep breaths. He felt like it continued to worsen so he asked his to bring him to the ED. No position helped the pain. He did not try any medications. This morning he had associated lightheadedness but no syncope. Denies SOB, KING, cough, palpitations, fevers, chills, sweats, recent surgery, recent prolonged travel, prior blood clot. His maternal grandmother had multiple DVTs but he does not recall her being diagnosed with anything specific such as Factor V Leiden. 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 Denies smoking tobacco although does smoke "medical marijuana"; denies other substances. Admission Exam Per Admitting Provider General: awake, alert, NAD, appears stated age HEENT: no scleral icterus, +moist oral mucosa Neck: trachea midline Heart: RRR, no M/G/R Lungs: clear though diminished due to limited inspiratory effort (due to pain) Abd: soft, NT, ND, +BS Extremities: no pedal edema, no calf pain Skin: no jaundice, no rashes; warm and dry Neuro: moving all extremities, no focal deficits, no dysarthria or confusion Principal Diagnosis (1) Pulmonary embolism and infarction: (2) Acute deep vein thrombosis (DVT) of iliac vein of right lower extremity: Discharge Exam General: awake, alert, NAD, appears stated age HEENT: no scleral icterus, +moist oral mucosa Neck: trachea midline Heart: RRR, no M/G/R Lungs: Decreased breath sound in left lower lung field. Abd: soft, NT, ND, +BS Extremities: no pedal edema, no calf pain Skin: no jaundice, no rashes; warm and dry Neuro: moving all extremities, no focal deficits, no dysarthria or confusion Discharge Data Allergies Allergy/AdvReac Type Severity Reaction Status Date / Time animal dander Allergy Intermediate ITCY EYES, Verified 06/24/19 15:22 SNEEZING, CONGESTION house dust Allergy Intermediate ITCHY Verified 02/28/23 10:05 EYES, SNEEZING, CONGESTION pollen extracts Allergy Intermediate ITCHY Verified 06/24/19 15:22 EYES, SNEEZING, CONGESTION Consultations 02/28/23 09:47 ED Decision to Admit Stat 02/28/23 12:31 Consult Pulmonology Routine Ordered Studies 02/28/23 08:33 CT abd pelvis IV con only Stat CT angio chest PE protocol Stat Hospital Course (1) Pulmonary embolism and infarction: (2) Acute deep vein thrombosis (DVT) of iliac vein of right lower extremity: (3) FRANCOIS (generalized anxiety disorder): (4) MDD (major depressive disorder): (5) ADHD (attention deficit hyperactivity disorder), combined type: (6) Asthma: Plan Patient is a 32 y/o male with mild intermittent asthma, FRANCOIS, and MDD who presented to the ED today with left chest and left mid-back pain for 1 day. Work-up in the ED revealed an elevated D-Dimer >4000 so pt underwent CTA chest that revealed a LLL PE with infarct. Additional imaging revealed right iliac vein thrombosis. No specific inciting event, question of a family history of DVT in his maternal grandmother. Pulmonology consultation was done; recommended anticoagulation and hypercoag ulable workup. They also recommended outpatient chest x-ray in 4 weeks. Patient had episode of fevers during the hospitalization; infectious workup including blood culture was negative. Patient was requiring 2 L of oxygen at discharge. Two-step oxygen evaluation was done. Patient needed 2 L of oxygen at rest and on exertion. Patient to follow-up with primary care doctor sometime next week. Hyp ercoagulable workup is also pending. Patient will need hematology referral as outpatient. You will also need outpatient chest x-ray in 4 weeks. Please note the above document was generated using voice recognition software. It may contain grammatical, syntax or spelling errors. Any formal questions or concerns about the content, text or information contained within the body of this dictation should be directly addressed to the provider for clarification Total Time Total Time Spent Total Time Spent (In Minutes): 35 Total Time Includes: Examination of the Patient, Discharge Planning, Medication Reconciliation, Communication With Other Providers and Other Discharge Plan Discharge Items Patient Disposition: Home - Self-Care Reason For Visit: LLE PE, PULM INFARCT Discharge Diagnosis: Pulmonary embolism and infarction Acute DVT of iliac vein of right lower extremity Activity: Resume your previous activity Non-emergency contact: Primary Care Provider Call non-emergency contact if: you have any medication questions and your symptoms worsen Follow-up/Referrals: Elías Nicole DO [Primary Care Provider] - Diet: Regular Addtl Attending Provider Instructions: You were admitted to the hospital due to chest pain. The CT of the lungs showed blood clot in the lung veins and veins in the right lower extremity. You are prescribed blood thinner (Eliquis). Please take it as instructed below: 1) take 10 mg(2 tablets) twice a day for 7 days(till 03/07/2023), then 2) take 5 mg(1 tablet) twice a day after that( from 03/08/2023) Please follow-up with your primary care doctor next week. You will need a follow-up chest x-ray in about 4 weeks to follow-up on pulmonary infarction. Hypercoagulable workup has been sent to the hospital. Please follow-up with your primary care doctor regarding the results. For the pain control; 1) you can alternate between Tylenol 650 mg and ibuprofen 600 mg every 6 hours. 2) if you have severe pain, you can take oxycodone 5 mg. Ibuprofen along with Eliquis can cause GI discomfort; you are prescribed omeprazole to be taken in the morning if you take ibuprofen. After you stop ibuprofen, you can stop taking omeprazole as well. Pending Studies at Discharge: No Studies:: Hypercoagulable workup, anticardiolipin antibody, prothrombin gene mutation, Stand-Alone Forms: My [employer], Smoking Cessation Medications and DC Order Prescriptions: New Eliquis 5 mg tablet 5 mg PO BID Qty: 74 0RF acetaminophen [Tylenol] 325 mg capsule 650 mg PO Q6H PRN (Reason: fever or pain) Qty: 60 0RF ibuprofen 600 mg tablet 600 mg PO Q8H PRN (Reason: pain) Qty: 20 0RF oxycodone 5 mg capsule 5 mg PO Q8H PRN (Reason: pain) Qty: 10 0RF omeprazole 40 mg capsule,delayed release(DR/EC) 40 mg PO DAILY Qty: 20 0RF Continued sertraline 100 mg tablet 200 mg PO QAM clonazepam 0.5 mg tablet 0.5 mg PO BID guanfacine 1 mg tablet 1 mg PO HS albuterol sulfate 90 mcg/actuation HFA aerosol inhaler 2 puff INHALATION Q4H PRN (Reason: Wheezing) aripiprazole 5 mg tablet 7.5 mg PO DAILY Discharge Orders: Discharge Order (Routine); Ordered 03/03/23 Ordered By: Oral Reid Admission Data Admit Date/Time: 02/28/23 10:21 Attending Provider: Oral Reid Admit Provider: Jolene Cornell Primary Care Provider: Elías Nicole Other Providers: Jolene Cornell; You Kline
[2023-03-06 01:17] LABS: Anti Cardiolipin Ab IgG <2.0 GPL-U/mL; Anti Cardiolipin Ab IgM <2.0 MPL-U/mL; B2 Glycoprotein IgG <2.0 U/mL (<20.0); B2 Glycoprotein IgM <2.0 U/mL (<20.0); Protein S Functional(Activity) 47 % normal (70-150)
[2023-03-06 15:52] LABS: Factor 5 Mutation NEGATIVE
== END 2023-03-03 16:55 | disposition home or self-care (01) | DRG 176 ==
LOC: ED 06:59 → SUATTDRO 10:21 → EDINP 10:21 → 2E 12:31